=== PATIENT | female | born 1935 | race Caucasian/White ===

== ENCOUNTER → 2016-10-20 | Outpatient (CLI) | payer OTHER, BC | LOC: MMPC 11:11 | PROVIDERS: ATTEND Internal Medicine | DX: M54.16 Radiculopathy, lumbar region (principal); K21.9 Gastro-esophageal reflux disease without esophagitis; M25.511 Pain in right shoulder | CPT/HCPCS: 99213; G0463 ==

== ENCOUNTER → 2016-11-17 | Outpatient (CLI) | payer OTHER, BC | LOC: MMPC 11:11 | PROVIDERS: ATTEND Internal Medicine | DX: M79.7 Fibromyalgia (principal); M19.019 Primary osteoarthritis, unspecified shoulder; N30.10 Interstitial cystitis (chronic) without hematuria; G47.00 Insomnia, unspecified; K59.03 Drug induced constipation; K21.9 Gastro-esophageal reflux disease without esophagitis; G89.4 Chronic pain syndrome; G62.9 Polyneuropathy, unspecified; M47.816 Spondylosis without myelopathy or radiculopathy, lumbar region | CPT/HCPCS: 99213; G0463 ==

== ENCOUNTER → 2016-12-08 | Outpatient (CLI) | payer OTHER, BC ==
[2016-12-08 17:05] LABS: BILIRUBIN,URINE NEGATIVE (NEG); CLARITY,URINE Slightly Cloudy (CLEAR); COLOR,URINE YELLOW; GLUCOSE, URINE (UA) NEGATIVE (NEG); NITRATE,URINE POSITIVE (NEG); OCCULT BLOOD,URINE MODERATE (NEG); PH,URINE 5.5 (5.0-8.5); PROTEIN,URINE 30 mg/dl (NEG); UROBILINOGEN,URINE 0.2 EU/dL (0.2)
[2016-12-08 17:10] LABS: URINE SAMPLE TYPE CLEAN CATCH URINE
[2016-12-08 17:13] LABS: BACTERIA,URINE MODERATE; SQUAMOUS EPITHELIAL CELL,UR RARE; WBC,URINE >100
== END ==
LOC: MOB LAB 15:53
PROVIDERS: ATTEND Nurse Practitioner Family
DX: R30.0 Dysuria (principal); R82.99 Other abnormal findings in urine
CPT/HCPCS: 81001; 87077; 87088; 87186

== ENCOUNTER → 2016-12-28 | Outpatient (CLI) | payer OTHER, BC | LOC: MMPC 11:11 | PROVIDERS: ATTEND Internal Medicine | DX: M47.816 Spondylosis without myelopathy or radiculopathy, lumbar region (principal); N30.10 Interstitial cystitis (chronic) without hematuria; K59.03 Drug induced constipation; K21.9 Gastro-esophageal reflux disease without esophagitis; G89.4 Chronic pain syndrome | CPT/HCPCS: 99213; G0463 ==

== ENCOUNTER 2017-01-01 10:08 | Inpatient (IN) | payer OTHER, BC ==
[2017-01-01] MEDS ORDERED: Acetaminophen 1000mg Inj 1,000 MG in Premix 1 BAG IV ONE (10:49)
[2017-01-01] MEDS ORDERED: Sodium Chloride 0.9% 1,000 ML PRIMARY IV ONE (10:49)
--- NOTE | 2017-01-01 10:54 | PDOC ---
Gen Adult / Medical Screen HPI - General Chief Complaint: General Medical Stated Complaint: WEAKNESS, CHILLS, FEVER STARTING AT 0630 Date Seen by Provider: 01/01/17 Time Seen by Provider: 10:51 Source: POSITIVE: Patient, Other (Daughter) Exam Limitations: POSITIVE: No limitations Nurse's Notes Reviewed & Considered: Yes - Indicators Chest or Abdominal Pain: Yes Inability to Walk: Yes Pt Reports Active High Risk Cond. (TB/Hepatitis/HIV/Chemo): No Abnormal Mental Status: No - History of Present Illness Initial Comments: This is a very pleasant 81-year-old female who comes in today with chief complaint of rigors. Patient awoke this morning at 06 30 having chills. She felt she needed to go to the toilet but was unable to make it in time and subsequently passed stool on the floor and on herself. Her daughter found her this morning having complaints of abdominal pain, rigors, and complaints of back pain. Patient recently treated for chronic UTI with Keflex, antibiotic course in did last week. She continues to have dysuria. She presently denies any headache, no sore throat, she is very thirsty, she denies nausea vomiting or diarrhea, she denies any fever but does have chills and rigor but no sweats. Presently denies any abdominal pain. She does have dysuria but no hematuria. No rashes. She denies any fainting Ro but does have global weakness. Body Location Affected: REPORTS: Abdomen Timing: REPORTS: Abrupt Duration: 4-6 hours Similar Symptoms Previously: No Recent Care Received: REPORTS: Treated by MD (Antibiotics for chronic UTI.) Any Prior Injuries Related to Current Complaint?: No - Patient Home Medications Home Medications: Home Medications Vit C/Vit E Acetate/Lutein/Min [Ocuvite Lutein Capsule] 1 each PO DAILY Calcium Carbonate/Vitamin D3 [Calcium 600 + Vit D 400 Caplet] 1 cap PO BID #60 tab 09/28/12 Aspirin/Acetaminophen/Caffeine [Excedrin Migraine Tablet] 1 tab PO PRN tab Travoprost (Benzalkonium) [Travatan 0.004% Eye Drop] 1 drop EACH EYE HS drop Phenazopyridine HCl [Pyridium] 100 mg PO QD tab 04/26/14 SUMAtriptan Inj [Imitrex Inj] 6 mg SUBCUT ONCE #1 ml 08/26/15 Docusate Sodium [Stool Softener] 100 mg PO DAILY tab 11/05/15 Inulin/Chromium Picolinate [Fiber Gummies] 1 each PO DAILY tab 11/05/15 Multivitamin [Daily Olinda] 1 tab PO DAILY tab 11/05/15 Alendronate Sodium 1 tab-cap PO WEEKLY #12 tab 02/10/16 Triamcinolone Acetonide 30 gm TOPICAL QD #1 tube 05/25/16 Omeprazole 1 tab-cap PO DAILY #90 tab-cap 06/23/16 Estrogens, Conj Vaginal Cream [Premarin Vaginal Cream] 0.5 gm VG 3XW #1 tube Lidocaine 1 patch TRANSDERM daily/prn #30 patch 08/05/16 Gabapentin 2 tab-cap PO QHS #180 tab-cap 09/23/16 Oxycodone HCl 1.5 tab PO BID #126 tab 11/17/16 Triazolam [Halcion] 1 tab-cap ORAL QHS PRN #30 tab-cap 12/17/16 Oxycodone HCl/Aspirin [Oxycodone-Aspirin 4.8355-325] 2 tab PO Q6H PRN #240 tab 12/28/16 - Patient Allergies Allergies/Adverse Reactions: Allergies Allergy/AdvReac Type Severity Reaction Status Date / Time codeine AdvReac NAUSEA Verified 01/01/17 10:35 Past Medical History - heen HEENT History: Glaucoma, Macular Degeneration, Cataracts, Dentures/Partials Additional HEENT History: TMJ Cardiovascular History: Hyperlipidemia Additional Cardiovasular History: HEART MURMUR Respiratory History: Other (please comment) Additional Respiratory History: previous tobacco use, quit in 1967. SOB WITH ACTIVITY. SHALLOW BREATHER, HAD HOME O2 BUT STATES DIDN'T WORK FOR HER Gastrointestinal History: GERD Additional Gastrointestinal History: constipation / SAUCEDA'S ESOPHAGUS Genitourinary History: Other (please comment) Additional Genitourinary History: CHRONIC URINARY PAIN Endocrine History: Denies History Musculoskeletal History: Arthritis, Osteoporosis, Fibromyalgia, Back Pain Prosthesis or Implant: Yes (LEFT TKA, DENTAL) Neurological History: Migraines Blood Disorders: Denies History Psychiatric History: Denies History History of Sexually Transmitted Diseases: No Cancer History: Denies History History of MDRO: No History of Other Communicable Diseases: No Alcohol Use: None Substance Use Type: None Previous Surgical History: Yes Type / Date of Surgery: COLONOSCOPY/ TONSILLECTOMY/LEFT TKA /EGD/ TRIAL STIMULATOR PLACEMENT Anesthesia Reactions: No Malignant Hyperthermia: No Significant Family History: No pertinent family hx ROS - Limitations ROS Limitations: No Limitations Constitution: REPORTS: Chills, Other (Rigors) Cardiovascular: REPORTS: Denies Cardiac Symptoms Respiratory: REPORTS: Denies Resp Symptoms Neurological: REPORTS: Weakness Gastrointestinal: REPORTS: Abdominal Pain Endocrine: REPORTS: Fatigue Musculoskeletal: REPORTS: Back Pain Genitourinary: REPORTS: Dysuria Eyes: REPORTS: Denies Symptoms ENT: REPORTS: Other (dry mucus membrains) Skin: REPORTS: Denies Skin Symptoms Lympathic: REPORTS: Denies Lympathic Symptoms Immunologic: POSITIVE: Denies Symptoms Psychiatric: POSITIVE: Denies Psych Symptoms Gen Adult/Medical Screen Exam - General Appearance General Appearance: POSITIVE: Alert, Cooperative, No Acute Distress, No Evidence of Trauma - HEENT HEENT: POSITIVE: Head Inspection Nml, Eyes Inspection Nml, Ears Inspection Nml, Nose Inspection Nml, PERRL, EOMI, Dry Mucous Membranes - Pupils Pupil Size: 5 mm: Bilateral - Neck Neck: POSITIVE: Normal Inspection - Respiratory Respiratory: POSITIVE: No Respiratory Distress, Breath Sounds Normal, Chest Non- Tender - Cardiovascular Cardiovascular: POSITIVE: Regular Rate & Rhythm, No Murmur, No Gallop, PMI Normal - Abdomen Abdomen: Soft: (All Quadrants), Normal Bowel Sounds: (All Quadrants), Denies Tenderness: (All Quadrants), No Splenomegaly: (All Quadrants), No Hepatomegaly: (All Quadrants), No Guarding: (All Quadrants), No Rebound: (All Quadrants), No Palpable Pulse: (All Quadrants), No Palpabale Mass: (All Quadrants), No Distention: (All Quadrants), No Rigidity: (All Quadrants) - Back Back: POSITIVE: Lumbosacral Tenderness - Neurological / Psychological Mental Status: POSITIVE: Mood Normal, Affect Normal Orientation: POSITIVE: Oriented x 3 - Skin Skin: POSITIVE: Normal Color, Warm, Dry, No Rash - Extremities Extremity: Non-Tender: (All Extremities), Normal ROM: (All Extremities), Normal Inspection: (All Extremities) Gen Adlt/Medical Scrn Progress - Results Reviewed by me Xrays/CTs/US Reviewed by me: Yes Discussed with Radiologist: Yes Lab Results Reviewed: Yes Lab Results:: Laboratory Results 01/01/17 01/01/17 01/01/17 Range/Units 11:09 11:17 11:27 WBC 11.69 H (4.8-10.8) 10^3/uL RBC 4.04 L (4.20-5.40) 10^6/uL Hgb 7.9 L (12.0-16.0) g/dL Hct 27.1 L (37.0-47.0) % MCV 67.1 L (81-99) FL MCH 19.6 L (27-31) PG MCHC 29.2 L (33-37) g/dL RDW Std Deviation 43.6 (39-50) fL RDW Coeff of Abdulaziz 18.3 H (11.5-14.5) % Plt Count 343 (140-350) 10*3/uL MPV 9.9 (7.4-12.2) FL Immature Gran % (Auto) 0.3 (0-5) % Neut % (Auto) 89.8 H (50-80) % Lymph % (Auto) 4.5 L (10-50) % Kidder % (Auto) 5.0 (5-15) % Eos % (Auto) 0.1 (0-8) % Baso % (Auto) 0.3 (0-1) % Immature Gran # (Auto) 0.03 10*3/UL Neut # (Auto) 10.51 10*3/UL Lymph # (Auto) 0.53 10*3/uL Kidder # (Auto) 0.58 (0.3-0.8) 10*3/UL Eos # (Auto) 0.01 10*3/UL Baso # (Auto) 0.03 10*3/UL WBC Morphology Comment Normal morphology (NORM) Plt Morphology Comment Normal morphology (NORM) RBC Morph Comment See comments (NORM) VBG pH 7.41 (7.32-7.42) VBG pCO2 36 L (45-55) mmHg VBG HCO3 23 (22-26) mmol/L VBG Base Excess -2 (-2-2) MMOL/L Sodium 135 (135-145) meq/L Potassium 3.6 L (3.8-5.2) meq/L Chloride 104 (98-112) meq/L Carbon Dioxide 24 (23-33) meq/L Anion Gap 7 (5-20) BUN 20 (7-22) mg/dL Creatinine 0.9 (0.50-1.20) mg/dL Estimated GFR (>60 ml/min/1.73m(2)) BUN/Creatinine Ratio 22.22 H (6-20) Glucose 91 (78-110) mg/dL Calculated Osmolality 282.0 (267-292) mOsm/kg Lactic Acid 0.8 (0.70-2.10) MMOL/L Calcium 7.9 L (8.7-10.7) mg/dL Magnesium 2.3 (1.6-2.4) mg/dL Total Bilirubin 0.4 (0.3-1.2) mg/dL AST 18 (8-39) IU/L ALT 21 (9-52) IU/L Alkaline Phosphatase 45 (38-126) IU/L Total Protein 5.5 L (6.1-8.0) g/dL Albumin 3.1 L (3.5-4.8) g/dL Globulin 2.4 L (2.50-4.10) g/dL Albumin/Globulin Ratio 1.20 L (1.3-2.0) mg/g Ur Collection Type Cath specimen Urine Color Yellow Urine Clarity Clear (CLEAR) Urine pH 5.5 (5.0-8.5) Ur Specific [place] 1.010 (1.005-1.030) Urine Protein Negative (NEG) mg/dl Urine Glucose (UA) Negative (NEG) mg/dL Urine Ketones Negative (NEG) Urine Occult Blood Trace-intact H (NEG) Urine Nitrate Positive H (NEG) Urine Bilirubin Negative (NEG) Urine Urobilinogen 0.2 (0.2) EU/dL Ur Leukocyte Esterase Negative (NEG) Urine RBC 0-3 (NONE) /hpf Urine WBC 0-3 (NONE) Ur Squamous Epith Cells None (NONE) Ur Renal Epithelial Cell None (NONE) Urine Crystals None Urine Bacteria Moderate (NONE) Urine Casts None (NONE) Urine Mucus None (NONE) Urine Trichomonas None (NONE) Urine Yeast None (NONE) Ur Culture Indicated? Culture set - Patient's Progress Pain Medication Addressed: POSITIVE: Yes Re-Examine Time: 11:50 Status: POSITIVE: Improved MDM / ED Course: Patient was evaluated, an IV started, blood drawn and sent to the lab for studies, blood cultures and blood gases were obtained, radiographic examination was obtained. ER course: Patient received a liter bolus of normal saline, IV acetaminophen, and improve somewhat. Findings: CBC shows elevated white count of 11.6, hemoglobin and hematocrit are both low with hemoglobin of 7.9. This hemoglobin level is down from 14 compared to a lab draw one year ago after review of the chart. Comprehensive metabolic panel shows a potassium of 3.6 albumin and protein are low. Urinalysis is positive for nitrites and moderate bacteria. An stain and cultures are pending. Chest x-ray shows a right lower lobe pneumonia per my interpretation. Assessment: #1 right lower lobe pneumonia with hypotension. #2 early sepsis. # 3 urinary tract infection. 4 Microcytic anemia. #5 Macular degeneration. - Consult Consult (If Yes, Name of Consulting MD & Time Called): Yes (Dr. Shearer, [id number]) Consulting MD will see pt:: POSITIVE: [facility] [place] Admit Counseled: POSITIVE: Patient, Family, RE: Lab Results, RE: Radiology Results, RE : DX Patient Care Time - Estimated PCT Patient Care Time (In Minutes): 45 Vital Signs - VS Reviewed Vital Signs Reviewed: Yes Discharge Clinical Impression: Right lower lobe pneumonia, Hypotension, Macular degeneration, Macrocytic anemia UTI (urinary tract infection) Qualifiers: Urinary tract infection type: acute cystitis Hematuria presence: with hematuria Qualifier Code: (N30.01) Acute cystitis with hematuria Discharge Disposition: Admit to Inpatient Condition: Fair Date Decision to Admit to Inpatient: 01/01/17 Time Decision to Admit to Inpatient: 11:51
[2017-01-01 11:16] LABS: VENOUS PH 7.41 (7.32-7.42)
[2017-01-01 11:19] LABS: BASOPHILS # (AUTO) 0.03 10*3/UL; BASOPHILS % (AUTO) 0.3 % (0-1); EOSINOPHILS # (AUTO) 0.01 10*3/UL; EOSINOPHILS % (AUTO) 0.1 % (0-8); HEMATOCRIT 27.1 % (37.0-47.0); HEMOGLOBIN 7.9 g/dL (12.0-16.0); LYMPHOCYTES # (AUTO) 0.53 10*3/uL; MEAN CORPUSCULAR HEMOGLOBIN 19.6 PG (27-31); MEAN CORPUSCULAR HGB CONC 29.2 g/dL (33-37); MEAN CORPUSCULAR VOLUME 67.1 FL (81-99); MEAN PLATELET VOLUME 9.9 FL (7.4-12.2); MONOCYTES # (AUTO) 0.58 10*3/UL (0.3-0.8); NEUTROPHILS # (AUTO) 10.51 10*3/UL; NEUTROPHILS % (AUTO) 89.8 % (50-80); RED BLOOD COUNT 4.04 10^6/uL (4.20-5.40)
[2017-01-01 11:29] LABS: BUN/CREATININE RATIO 22.22 (6-20); CALCIUM 7.9 mg/dL (8.7-10.7); MAGNESIUM 2.3 mg/dL (1.6-2.4); SERUM ALBUMIN 3.1 g/dL (3.5-4.8)
[2017-01-01 11:30] LABS: BILIRUBIN,URINE NEGATIVE (NEG); CLARITY,URINE CLEAR (CLEAR); COLOR,URINE YELLOW; GLUCOSE, URINE (UA) NEGATIVE (NEG); NITRATE,URINE POSITIVE (NEG); OCCULT BLOOD,URINE Trace-intact (NEG); PH,URINE 5.5 (5.0-8.5); PROTEIN,URINE NEGATIVE (NEG); UROBILINOGEN,URINE 0.2 EU/dL (0.2)
[2017-01-01 11:34] LABS: WBC MORPHOLOGY COMMENT NORMAL MORPHOLOGY (NORM)
[2017-01-01 11:35] LABS: PLATELET MORPHOLOGY COMMENT NORMAL MORPHOLOGY (NORM); RBC MORPHOLOGY COMMENT SEE COMMENTS (NORM)
[2017-01-01 11:39] LABS: URINE SAMPLE TYPE CATH SPECIMEN
[2017-01-01 11:40] LABS: BACTERIA,URINE MODERATE; RBC,URINE 0-3 /hpf; WBC,URINE 0-3
[2017-01-01] MEDS ORDERED: cefTRIAXone Inj 2 GM in Sodium Chloride 0.9% 100 ML IV ONE (11:49)
[2017-01-01] MEDS ORDERED: Sodium Chloride 0.9% 500 ML PRIMARY IV SCH (12:24)
[2017-01-01] MEDS ORDERED: ESTROGENS,CONJUGATED 30 GM CREAM VAGINAL SCH (12:24)
[2017-01-01] MEDS ORDERED: LIDOCAINE W/ SODIUM BICARB 0.5 ML SYR SUBD PRN (12:24)
[2017-01-01] MEDS ORDERED: LIDOCAINE 700 MG PATCH TOPICAL SCH (12:24)
[2017-01-01] MEDS ORDERED: SUMAtriptan Succinate 6 MG/0.5 ML SUBCUT PRN (12:24)
[2017-01-01] MEDS ORDERED: predniSONE Tab 20 MG TAB PO ONE (12:40)
[2017-01-01] MEDS ORDERED: ACETAMINOPHEN 325 MG TABLET PO ONE (12:40)
[2017-01-01] MEDS: Phenazopyridine Tab 100 MG TAB PO SCH (13:22)
[2017-01-01] MEDS: Sodium Chloride 0.9% 1,000 ML PRIMARY IV SCH (13:24)
[2017-01-01] MEDS: Sodium Chloride 0.9% 500 ML PRIMARY IV ONE ×2 (13:40→17:01)
[2017-01-01] MEDS ORDERED: Sodium Chloride 0.9% 1,000 ML PRIMARY IV SCH (13:45)
[2017-01-01] MEDS ORDERED: Potassium Chloride 20 mEq 20 MEQ in Premix 1 BAG IV ONE (13:59)
[2017-01-01] MEDS ORDERED: HYDROmorphone 2 MG/1 ML IVP PRN (14:13)
[2017-01-01] MEDS: ONDANSETRON 4 MG/2 ML VIAL IVP PRN (14:24)
--- NOTE | 2017-01-01 15:06 | DI ---
PA /LATERAL CHEST X-RAY, 01/01/2017 10:49 AM : Clinical History: Rigors. Previous Exam: 09/19/2009. There is no acute soft tissue or bony abnormality. Heart size is normal. There is a right lower lobe pneumonia. Mediastinal structures are normal. There are no pulmonary nodules. Reading: Right lower lobe pneumonia.
--- NOTE | 2017-01-01 15:19 | PDOC ---
History and Physical - History of Present Illness Date and Time of Service: 01/01/2017, 1513 Chief Complaint: shaking and chills. History of Present Illness: This is a very pleasant 81 YO female who has chronic back pain, ledezma's esophagitis, chronic interstitial cystitis, arthritis, who presents with complaints of waking up with shaking and chills. She describes rigors and states that she had a fever when the ambulance got her. She went to the bathroom after she woke up and felt the rigors and also felt very weak. She was weak enough that she could not get up and lost her bowels. Her daughter says it was a dark stool, borderline melanotic. The patient was found with workup in the ER to have a right sided pneumonia, probably recurrent UTI, and anemia with a hemoglobin below 8. It was normal at over 14 in 09/2015 on my review of the record. The patient stated that her back pain has been worse, but did not notice any exacerbating factors except that her medicines were switched to higher dose oxycodone with aspirin. She has been on percodan for pain for a long time now. She also noted that she had no cough or chest pain, but does state she gets acid reflux and thinks she swallows these contents into her lungs at times. The patient was borderline hypotensive, but not tachycardic. She has not had this constellation of symptoms or findings before , though she has had multiple GI scopes and work up in the past per my review of the history. I spoke with surgery who felt the patient needed stabilization prior to any outpatient scope. Past Medical History Medical History: 1. GERD. 2. Osteoporosis. 3. Lumbar spondylosis. 4. Osteoarthritis. 5. Hx of hyperlipidemia. 6. Ledezma's esophagitis. 7. macular degeneration. 8. chronic interstitial cystitis with recurrent UTI's Surgical History: 1. colonoscopies and EGD's. most recent colonoscopy had a tubular adenoma in 2009. 2. left knee surgery. 3. spinal stimulator with subsequent removal. 4. hand surgery. Family History: Reviewed an Not Pertinent Pertinent Family History: significant for heart disease in her father Past Social History: quit smoking in the 1959's, no alcohol, has children that are healthy. ambulates with walker and lives independently in the [facility]. Tobacco Use: Former Smoker Substance Use Type: None Alcohol Use: None Medication / Allergies Home Medications: Home Medications Medication Instructions Recorded Confirmed Type Vit C/Vit E Acetate/Lutein/Min 1 each PO DAILY 12/19/10 01/01/17 History [Ocuvite Lutein Capsule] Calcium Carbonate/Vitamin D3 1 cap PO BID #60 tab 09/28/12 01/01/17 Clinic [Calcium 600 + Vit D 400 Caplet] Aspirin/Acetaminophen/Caffeine 1 tab PO PRN tab 01/16/13 01/01/17 History [Excedrin Migraine Tablet] Travoprost (Benzalkonium) 1 drop EACH EYE HS drop 01/16/13 01/01/17 History [Travatan 0.004% Eye Drop] Phenazopyridine HCl [Pyridium] 100 mg PO QD tab 04/26/14 01/01/17 History SUMAtriptan Inj [Imitrex Inj] 6 mg SUBCUT ONCE #1 ml 08/26/15 01/01/17 Clinic Docusate Sodium [Stool Softener] 100 mg PO DAILY tab 11/05/15 01/01/17 History Inulin/Chromium Picolinate [Fiber 1 each PO DAILY tab 11/05/15 01/01/17 History Gummies] Multivitamin [Daily Olinda] 1 tab PO DAILY tab 11/05/15 01/01/17 History Alendronate Sodium 1 tab-cap PO WEEKLY #12 tab 02/10/16 01/01/17 Clinic Triamcinolone Acetonide 30 gm TOPICAL QD #1 tube 05/25/16 01/01/17 Clinic Omeprazole 1 tab-cap PO DAILY #90 tab-cap 06/23/16 01/01/17 Clinic Estrogens, Conj Vaginal Cream 0.5 gm VG 3XW #1 tube 07/17/16 01/01/17 Clinic [Premarin Vaginal Cream] Lidocaine 1 patch TRANSDERM daily/prn #30 08/05/16 01/01/17 Clinic patch Gabapentin 2 tab-cap PO QHS #180 tab-cap 09/23/16 01/01/17 Clinic Oxycodone HCl 1.5 tab PO BID #126 tab 11/17/16 01/01/17 Clinic Triazolam [Halcion] 1 tab-cap ORAL QHS PRN #30 tab-cap 12/17/16 01/01/17 Clinic Oxycodone HCl/Aspirin 2 tab PO Q6H PRN #240 tab 12/28/16 01/01/17 Clinic [Oxycodone-Aspirin 4.8355-325] Allergies/Adverse Reactions: Allergies Allergy/AdvReac Type Severity Reaction Status Date / Time codeine AdvReac NAUSEA Verified 01/01/17 10:35 Review of Systems - Review of Systems All Systems: Reviewed & No Additional Complaints Except as Stated (I did a 12 point review of systems and it was negative exept as per HPI and that noted below:) - Constitutional Constitutional: REPORTS: Fever/Chills, Malaise, Weakness - Respiratory Respiratory: DENIES: Negative System Review, Cough, Sputum, Dyspnea At Rest, Dyspnea with Exertion, Pleuritic Pain, Hemoptysis, Wheezing, Other, See HPI - Cardiovascular Cardiovascular: DENIES: Negative System Review, Chest Pain, Edema, Syncope, Palpitations, Orthopnea, Paroxysmal Nocturnal Dyspnea, Other, See HPI - Gastrointestinal Gastrointestinal / Abdominal: REPORTS: Constipation (chronic and realted to opiates.), Other (the patient states she cannot see any blood in the stool and attributes that to her poor eye sight) - Genitourinary Genitourinary: REPORTS: Other (chronic interstitial cystitis) - Musculoskeletal Musculoskeletal: REPORTS: Back Pain, Joint Pain - Knees - Neurological Neurologic: DENIES: Negative System Review, Headache, Numbness/Paresthesia, Tremors, Weakness, Seizures, Head Trauma, LOC, Dizziness, Confusion, Memory Loss , Difficulty Walking, Incoordination, Other, See HPI Exam - Vitals Vital Signs: Vital Signs Temperature 98.7 F Temperature Source Oral Pulse Rate [Pulse Oximeter] 81 Pulse Rate 85 Respiratory Rate 8 Blood Pressure [Left Arm] 114/34 Pulse Ox 95 Oxygen Delivery Method Nasal Cannula Weight 146 lb - General General Appearance: POSITIVE: No Acute Distress, Cooperative Additional General Exam Details: appears pale. - Head Head Exam: POSITIVE: Normal Inspection, Normocephalic, Atraumatic - Eye Eye Exam: POSITIVE: No Scleral Icterus - ENT ENT Exam: POSITIVE: Mucous Membranes Dry - Neck Neck Exam: POSITIVE: Normal Inspection, No Tenderness, No Thyromegaly - Respiratory Respiratory Exam: POSITIVE: Clear to Auscultation - Bilaterally, Breathing Non Labored, Normal to Percussion and Palpation - Cardiovascular Cardiovascular Exam: POSITIVE: RRR, No Murmur, No Clicks, No Gallops, No Rubs, No JVD - GI/Abdominal GI/Abdominal Exam: POSITIVE: Normal Bowel Sounds, Non Tender, Non Distended, Soft - Rectal Rectal Exam: POSITIVE: Normal Inspection, Hemorrhoids (small external, not bleeding) Additional Rectal Exam Details: no gross blood on the glove. - External Exam: POSITIVE: Deferred Exam: POSITIVE: Deferred - Extremities Extremities Exam: POSITIVE: No Clubbing Present, No Edema Present, No Cyanosis Present Additional Extremities Exam Details: question if right leg is larger than the left?? - Back Back Exam: POSITIVE: No CVA Tenderness - Neurological Neurological Exam: POSITIVE: Alert, Oriented x 3, No Facial Droop, Speech Intact / Clear, Moves All Extremities Equally - Psychiatric Psychiatric Exam: POSITIVE: Normal Affect, Normal Mood - Integumentary Additional Integumentary Exam Details: appears pale - Central Line Examination Central Line Present on Admission: No Results - Labs CBC and BMP: 01/01/17 11:17 01/01/17 11:17 Labs - Last 24 Hours: Laboratory Results 01/01/17 Range/Units 13:05 Lactic Acid 0.8 (0.70-2.10) MMOL/L Blood Type A POSITIVE Antibody Screen Negative Crossmatch See Detail Laboratory Results 01/01/17 01/01/17 01/01/17 Range/Units 11:09 11:17 11:27 WBC 11.69 H (4.8-10.8) 10^3/uL RBC 4.04 L (4.20-5.40) 10^6/uL Hgb 7.9 L (12.0-16.0) g/dL Hct 27.1 L (37.0-47.0) % MCV 67.1 L (81-99) FL MCH 19.6 L (27-31) PG MCHC 29.2 L (33-37) g/dL RDW Std Deviation 43.6 (39-50) fL RDW Coeff of Abdulaziz 18.3 H (11.5-14.5) % Plt Count 343 (140-350) 10*3/uL MPV 9.9 (7.4-12.2) FL Immature Gran % (Auto) 0.3 (0-5) % Neut % (Auto) 89.8 H (50-80) % Lymph % (Auto) 4.5 L (10-50) % [place] % (Auto) 5.0 (5-15) % Eos % (Auto) 0.1 (0-8) % Baso % (Auto) 0.3 (0-1) % Immature Gran # (Auto) 0.03 10*3/UL Neut # (Auto) 10.51 10*3/UL Lymph # (Auto) 0.53 10*3/uL [place] # (Auto) 0.58 (0.3-0.8) 10*3/UL Eos # (Auto) 0.01 10*3/UL Baso # (Auto) 0.03 10*3/UL WBC Morphology Comment Normal morphology (NORM) Plt Morphology Comment Normal morphology (NORM) RBC Morph Comment See comments (NORM) VBG pH 7.41 (7.32-7.42) VBG pCO2 36 L (45-55) mmHg VBG HCO3 23 (22-26) mmol/L VBG Base Excess -2 (-2-2) MMOL/L Sodium 135 (135-145) meq/L Potassium 3.6 L (3.8-5.2) meq/L Chloride 104 (98-112) meq/L Carbon Dioxide 24 (23-33) meq/L Anion Gap 7 (5-20) BUN 20 (7-22) mg/dL Creatinine 0.9 (0.50-1.20) mg/dL Estimated GFR (>60 ml/min/1.73m(2)) BUN/Creatinine Ratio 22.22 H (6-20) Glucose 91 (78-110) mg/dL Calculated Osmolality 282.0 (267-292) mOsm/kg Lactic Acid 0.8 (0.70-2.10) MMOL/L Calcium 7.9 L (8.7-10.7) mg/dL Magnesium 2.3 (1.6-2.4) mg/dL Total Bilirubin 0.4 (0.3-1.2) mg/dL AST 18 (8-39) IU/L ALT 21 (9-52) IU/L Alkaline Phosphatase 45 (38-126) IU/L Total Protein 5.5 L (6.1-8.0) g/dL Albumin 3.1 L (3.5-4.8) g/dL Globulin 2.4 L (2.50-4.10) g/dL Albumin/Globulin Ratio 1.20 L (1.3-2.0) mg/g Ur Collection Type Cath specimen Urine Color Yellow Urine Clarity Clear (CLEAR) Urine pH 5.5 (5.0-8.5) Ur Specific Quentin 1.010 (1.005-1.030) Urine Protein Negative (NEG) mg/dl Urine Glucose (UA) Negative (NEG) mg/dL Urine Ketones Negative (NEG) Urine Occult Blood Trace-intact H (NEG) Urine Nitrate Positive H (NEG) Urine Bilirubin Negative (NEG) Urine Urobilinogen 0.2 (0.2) EU/dL Ur Leukocyte Esterase Negative (NEG) Urine RBC 0-3 (NONE) /hpf Urine WBC 0-3 (NONE) Ur Squamous Epith Cells None (NONE) Ur Renal Epithelial Cell None (NONE) Urine Crystals None Urine Bacteria Moderate (NONE) Urine Casts None (NONE) Urine Mucus None (NONE) Urine Trichomonas None (NONE) Urine Yeast None (NONE) Ur Culture Indicated? Culture set Blood Type Antibody Screen Crossmatch 01/01/17 Range/Units 13:05 WBC (4.8-10.8) 10^3/uL RBC (4.20-5.40) 10^6/uL Hgb (12.0-16.0) g/dL Hct (37.0-47.0) % MCV (81-99) FL MCH (27-31) PG MCHC (33-37) g/dL RDW Std Deviation (39-50) fL RDW Coeff of Abdulaziz (11.5-14.5) % Plt Count (140-350) 10*3/uL MPV (7.4-12.2) FL Immature Gran % (Auto) (0-5) % Neut % (Auto) (50-80) % Lymph % (Auto) (10-50) % [place] % (Auto) (5-15) % Eos % (Auto) (0-8) % Baso % (Auto) (0-1) % Immature Gran # (Auto) 10*3/UL Neut # (Auto) 10*3/UL Lymph # (Auto) 10*3/uL [place] # (Auto) (0.3-0.8) 10*3/UL Eos # (Auto) 10*3/UL Baso # (Auto) 10*3/UL WBC Morphology Comment (NORM) Plt Morphology Comment (NORM) RBC Morph Comment (NORM) VBG pH (7.32-7.42) VBG pCO2 (45-55) mmHg VBG HCO3 (22-26) mmol/L VBG Base Excess (-2-2) MMOL/L Sodium (135-145) meq/L Potassium (3.8-5.2) meq/L Chloride (98-112) meq/L Carbon Dioxide (23-33) meq/L Anion Gap (5-20) BUN (7-22) mg/dL Creatinine (0.50-1.20) mg/dL Estimated GFR (>60 ml/min/1.73m(2)) BUN/Creatinine Ratio (6-20) Glucose (78-110) mg/dL Calculated Osmolality (267-292) mOsm/kg Lactic Acid 0.8 (0.70-2.10) MMOL/L Calcium (8.7-10.7) mg/dL Magnesium (1.6-2.4) mg/dL Total Bilirubin (0.3-1.2) mg/dL AST (8-39) IU/L ALT (9-52) IU/L Alkaline Phosphatase (38-126) IU/L Total Protein (6.1-8.0) g/dL Albumin (3.5-4.8) g/dL Globulin (2.50-4.10) g/dL Albumin/Globulin Ratio (1.3-2.0) mg/g Ur Collection Type Urine Color Urine Clarity (CLEAR) Urine pH (5.0-8.5) Ur Specific Quentin (1.005-1.030) Urine Protein (NEG) mg/dl Urine Glucose (UA) (NEG) mg/dL Urine Ketones (NEG) Urine Occult Blood (NEG) Urine Nitrate (NEG) Urine Bilirubin (NEG) Urine Urobilinogen (0.2) EU/dL Ur Leukocyte Esterase (NEG) Urine RBC (NONE) /hpf Urine WBC (NONE) Ur Squamous Epith Cells (NONE) Ur Renal Epithelial Cell (NONE) Urine Crystals Urine Bacteria (NONE) Urine Casts (NONE) Urine Mucus (NONE) Urine Trichomonas (NONE) Urine Yeast (NONE) Ur Culture Indicated? Blood Type A POSITIVE Antibody Screen Negative Crossmatch See Detail - Imaging Status: Image Reviewed by Me (cxr, on my view, positive for right sided pneumonia.) Assessment and Plan - Patient Problems (1) Sepsis Current Visit: Yes Status: Acute Qualifiers: Sepsis type: sepsis due to unspecified organism Qualified Description: Sepsis, due to unspecified organism Qualifier Code(s): (A41.9) Sepsis, unspecified organism (2) Pneumonia Current Visit: Yes Status: Acute Qualifiers: Pneumonia type: due to unspecified organism Laterality: right Lung location: lower lobe of lung Qualified Description: Pneumonia of right lower lobe due to infectious organism Qualifier Code(s): (J18.1) Lobar pneumonia, unspecified organism (3) GI bleed Current Visit: Yes Status: Acute Qualifiers: GI bleed type/associated pathology: unspecified gastrointestinal hemorrhage type Qualified Description: Gastrointestinal hemorrhage, unspecified gastrointestinal hemorrhage type Qualifier Code(s): (K92.2) Gastrointestinal hemorrhage, unspecified (4) Chronic pain syndrome Current Visit: Yes Status: Acute (5) Anemia due to acute blood loss Current Visit: Yes Status: Acute (6) UTI (urinary tract infection) Current Visit: Yes Status: Acute Comment: microscopic hematuria Qualifiers: Urinary tract infection type: acute cystitis Hematuria presence: with hematuria Qualified Description: Acute cystitis with hematuria Qualifier Code(s): (N30.01) Acute cystitis with hematuria - Assessment / Plan Additional Assessment/Plan Details: admit the patient Protonix gtt, blood transfusion, recheck CBC tonight and in AM I spoke with surgery who agreed with those interventions and felt it would be best to scope as an outpatient unless the patient had hematemesis or BRBPR. stop aspirin rocephin and zithromax for pneumonia, both IV, as patient is ICU patient currently IV fluids to maintain blood pressures above SBP of 90 await urine and blood culture results pneumovax vaccine. code status confirmed, DO NOT RESUSITATE discussed with family at bedside and they agreed. total critical care time 50 minutes. no overlap
[2017-01-01] MEDS ORDERED: PNEUMOCOCCAL 23 VACCINE 25 MCG/0.5 ML VIAL SUBCUT ONE (15:39)
[2017-01-01] MEDS: GABAPENTIN 300 MG CAPSULE PO SCH (20:41)
[2017-01-01] MEDS: oxyCODONE IR Tab 5 MG TAB PO PRN (20:41)
[2017-01-01] MEDS: TRAVOPROST EACH EYE SCH (21:47)
[2017-01-01] MEDS: TRIAZOLAM 0.25 MG ORAL PRN (22:27)
[2017-01-01 22:41] LABS: BASOPHILS # (AUTO) 0.02 10*3/UL; BASOPHILS % (AUTO) 0.1 % (0-1); EOSINOPHILS # (AUTO) 0 10*3/UL; EOSINOPHILS % (AUTO) 0 % (0-8); HEMOGLOBIN 10.2 g/dL (12.0-16.0); LYMPHOCYTES # (AUTO) 0.59 10*3/uL; MEAN CORPUSCULAR HGB CONC 31.9 g/dL (33-37); MEAN CORPUSCULAR VOLUME 72.2 FL (81-99); MEAN PLATELET VOLUME 9.5 FL (7.4-12.2); MONOCYTES # (AUTO) 0.32 10*3/UL (0.3-0.8); MONOCYTES % (AUTO) 1.5 % (5-15); NEUTROPHILS # (AUTO) 20.81 10*3/UL; NEUTROPHILS % (AUTO) 95.3 % (50-80); RED BLOOD COUNT 4.43 10^6/uL (4.20-5.40)
[2017-01-01 22:51] LABS: PLATELET MORPHOLOGY COMMENT NORMAL MORPHOLOGY (NORM); RBC MORPHOLOGY COMMENT NORMAL MORPHOLOGY (NORM); WBC MORPHOLOGY COMMENT NORMAL MORPHOLOGY (NORM)
[2017-01-02] MEDS: Sodium Chloride 0.9% 1,000 ML PRIMARY IV SCH ×3 (03:14→16:35)
[2017-01-02 05:27] LABS: BASOPHILS # (AUTO) 0.01 10*3/UL; BASOPHILS % (AUTO) 0 % (0-1); EOSINOPHILS # (AUTO) 0 10*3/UL; EOSINOPHILS % (AUTO) 0 % (0-8); HEMATOCRIT 30.2 % (37.0-47.0); HEMOGLOBIN 9.6 g/dL (12.0-16.0); LYMPHOCYTES # (AUTO) 0.99 10*3/uL; MEAN CORPUSCULAR HEMOGLOBIN 23.2 PG (27-31); MEAN CORPUSCULAR HGB CONC 31.8 g/dL (33-37); MEAN CORPUSCULAR VOLUME 73.1 FL (81-99); MEAN PLATELET VOLUME 9.6 FL (7.4-12.2); MONOCYTES # (AUTO) 0.59 10*3/UL (0.3-0.8); MONOCYTES % (AUTO) 2.9 % (5-15); NEUTROPHILS # (AUTO) 18.46 10*3/UL; RED BLOOD COUNT 4.13 10^6/uL (4.20-5.40)
[2017-01-02 05:31] LABS: BUN/CREATININE RATIO 16.25 (6-20); CALCIUM 7.3 mg/dL (8.7-10.7); PLATELET MORPHOLOGY COMMENT NORMAL MORPHOLOGY (NORM); RBC MORPHOLOGY COMMENT NORMAL MORPHOLOGY (NORM); WBC MORPHOLOGY COMMENT NORMAL MORPHOLOGY (NORM)
[2017-01-02 05:32] LABS: SERUM ALBUMIN 2.7 g/dL (3.5-4.8)
[2017-01-02] MEDS: Phenazopyridine Tab 100 MG TAB PO SCH (09:21)
[2017-01-02] MEDS: Multivitamin Tab 1 TAB PO SCH (09:21)
[2017-01-02] MEDS: oxyCODONE IR Tab 5 MG TAB PO PRN ×3 (09:22→23:14)
--- NOTE | 2017-01-02 11:27 | PDOC(PROG) ---
Interval History: Patient is feeling much better today she says night and day stronger she is sitting in a chair for the first time since she came in. She does have chronic UTIs and it was on suppression at one time denies chest pain nausea vomiting or shortness of breath. Not drinking much water Objective : Data - Labs CBC and BMP: 01/02/17 04:58 01/02/17 04:58 Labs - Last 24 Hours: Laboratory Results 01/01/17 01/01/17 01/02/17 Range/Units 13:05 22:38 04:58 WBC 21.83 H 20.10 H (4.8-10.8) 10^3/uL RBC 4.43 4.13 L (4.20-5.40) 10^6/uL Hgb 10.2 L 9.6 L (12.0-16.0) g/dL Hct 32.0 L 30.2 L (37.0-47.0) % MCV 72.2 L 73.1 L (81-99) FL MCH 23.0 L 23.2 L (27-31) PG MCHC 31.9 L 31.8 L (33-37) g/dL RDW Std Deviation 54.8 H 55.6 H (39-50) fL RDW Coeff of Abdulaziz 21.5 H 21.4 H (11.5-14.5) % Plt Count 254 225 (140-350) 10*3/uL MPV 9.5 9.6 (7.4-12.2) FL Immature Gran % (Auto) 0.4 0.2 (0-5) % Neut % (Auto) 95.3 H 92.0 H (50-80) % Lymph % (Auto) 2.7 L 4.9 L (10-50) % [place] % (Auto) 1.5 L 2.9 L (5-15) % Eos % (Auto) 0 0 (0-8) % Baso % (Auto) 0.1 0 (0-1) % Immature Gran # (Auto) 0.09 0.05 10*3/UL Neut # (Auto) 20.81 18.46 10*3/UL Lymph # (Auto) 0.59 0.99 10*3/uL [place] # (Auto) 0.32 0.59 (0.3-0.8) 10*3/UL Eos # (Auto) 0 0 10*3/UL Baso # (Auto) 0.02 0.01 10*3/UL WBC Morphology Comment Normal morphology Normal morphology (NORM) Plt Morphology Comment Normal morphology Normal morphology (NORM) RBC Morph Comment Normal morphology Normal morphology (NORM) Sodium 140 (135-145) meq/L Potassium 4.5 (3.8-5.2) meq/L Chloride 110 (98-112) meq/L Carbon Dioxide 23 (23-33) meq/L Anion Gap 7 (5-20) BUN 13 (7-22) mg/dL Creatinine 0.8 (0.50-1.20) mg/dL Estimated GFR (>60 ml/min/1.73m(2)) BUN/Creatinine Ratio 16.25 (6-20) Glucose 108 (78-110) mg/dL Calculated Osmolality 290.0 (267-292) mOsm/kg Lactic Acid 0.8 0.8 (0.70-2.10) MMOL/L Calcium 7.3 L (8.7-10.7) mg/dL Total Bilirubin 0.7 D (0.3-1.2) mg/dL AST 22 (8-39) IU/L ALT 25 (9-52) IU/L Alkaline Phosphatase 33 L (38-126) IU/L Total Protein 5.1 L (6.1-8.0) g/dL Albumin 2.7 L (3.5-4.8) g/dL Globulin 2.4 L (2.50-4.10) g/dL Albumin/Globulin Ratio 1.10 L (1.3-2.0) mg/g Blood Type A POSITIVE Antibody Screen Negative Crossmatch See Detail Objective : Exam - General General Appearance: Cooperative - Head Head Exam: Normal Inspection - Neck Neck Exam: Normal Inspection, Full ROM - Respiratory Respiratory Exam: Clear to Auscultation - Bilaterally, Breathing Non Labored - Cardiovascular Cardiovascular Exam: RRR, No Murmur, No Clicks - GI/Abdominal GI/Abdominal Exam: Non Tender, Non Distended, Soft - Extremities Extremities Exam: No Clubbing Present, No Edema Present, No Cyanosis Present Assessment and Plan - Patient Problems (1) Right lower lobe pneumonia Current Visit: Yes Status: Acute Comment: She did have Klebsiella in the urine at one point resistant to ampicillin for white count still is around 21,000 I will stop ceftriaxone and Zithromax will start cefepime 2 g every 12 follow her blood work care carefully still a little hypotensive. Also will give her 250 normal saline bolus (2) Anemia due to acute blood loss Current Visit: Yes Status: Acute Comment: Stable now EGD as an outpatient as per general surgery no bright red blood per rectum or hematemesis (3) GI bleed Current Visit: Yes Status: Acute Qualifiers: GI bleed type/associated pathology: unspecified gastrointestinal hemorrhage type Qualified Description: Gastrointestinal hemorrhage, unspecified gastrointestinal hemorrhage type Qualifier Code(s): (K92.2) Gastrointestinal hemorrhage, unspecified (4) UTI (urinary tract infection) Current Visit: Yes Status: Acute Comment: This is chronic but still in the setting of sepsis she had Klebsiella in the past resistant to ampicillin cultures are pending Qualifiers: Urinary tract infection type: acute cystitis Hematuria presence: with hematuria Qualified Description: Acute cystitis with hematuria Qualifier Code(s): (N30.01) Acute cystitis with hematuria - Assessment / Plan Additional Assessment/Plan Details: All the above was discussed with nursing patient and her on agreement
[2017-01-02] MEDS ORDERED: Cefepime Inj 2 GM in Sodium Chloride 0.9% 100 ML IV SCH (11:30)
[2017-01-02] MEDS ORDERED: Sodium Chloride 0.9% 250 ML PRIMARY IV ONE (11:35)
[2017-01-02] MEDS ORDERED: cefTRIAXone Inj 2 GM in Sodium Chloride 0.9% 100 ML IV SCH (12:00)
[2017-01-02] MEDS: cefTRIAXone Inj 2 GM in Sodium Chloride 0.9% 100 ML IV SCH (13:00)
[2017-01-02] MEDS: ONDANSETRON 4 MG/2 ML VIAL IVP PRN (21:40)
[2017-01-02] MEDS ORDERED: LORazepam 2 MG/1 ML VIAL ONE (22:28)
[2017-01-02] MEDS ORDERED: LORazepam 2 MG/1 ML VIAL IVP ONE (22:43)
[2017-01-02] MEDS: GABAPENTIN 300 MG CAPSULE PO SCH (23:14)
[2017-01-03] MEDS: TRIAZOLAM 0.25 MG ORAL PRN ×2 (00:57→22:44)
[2017-01-03] MEDS: TRAVOPROST EACH EYE SCH ×2 (03:26→20:57)
[2017-01-03] MEDS ORDERED: Magnesium Sulfate 2gm (Premix) 2 GM in Premix 1 BAG IV ONE (03:59)
[2017-01-03] MEDS ORDERED: Metoprolol TARTRATE Tab 25 MG TAB PO ONE (04:00)
[2017-01-03] MEDS ORDERED: Magnesium Sulfate 2gm (Premix) 50 ML IV ONE (04:08)
[2017-01-03] MEDS: Sodium Chloride 0.9% 1,000 ML PRIMARY IV SCH (04:59)
[2017-01-03 05:17] LABS: BUN/CREATININE RATIO 16.25 (6-20); CALCIUM 7.6 mg/dL (8.7-10.7); SERUM ALBUMIN 2.7 g/dL (3.5-4.8)
[2017-01-03 05:26] LABS: BASOPHILS # (AUTO) 0.04 10*3/UL; BASOPHILS % (AUTO) 0.2 % (0-1); EOSINOPHILS # (AUTO) 0.03 10*3/UL; EOSINOPHILS % (AUTO) 0.2 % (0-8); HEMOGLOBIN 9.2 g/dL (12.0-16.0); LYMPHOCYTES # (AUTO) 1.68 10*3/uL; MEAN CORPUSCULAR HEMOGLOBIN 23.1 PG (27-31); MEAN CORPUSCULAR HGB CONC 30.7 g/dL (33-37); MEAN CORPUSCULAR VOLUME 75.2 FL (81-99); MEAN PLATELET VOLUME 10.4 FL (7.4-12.2); MONOCYTES # (AUTO) 0.69 10*3/UL (0.3-0.8); MONOCYTES % (AUTO) 4.3 % (5-15); NEUTROPHILS # (AUTO) 13.67 10*3/UL; NEUTROPHILS % (AUTO) 84.6 % (50-80); RED BLOOD COUNT 3.99 10^6/uL (4.20-5.40)
[2017-01-03 05:57] LABS: PLATELET MORPHOLOGY COMMENT NORMAL MORPHOLOGY (NORM); RBC MORPHOLOGY COMMENT SEE COMMENTS (NORM); WBC MORPHOLOGY COMMENT NORMAL MORPHOLOGY (NORM)
[2017-01-03] MEDS ORDERED: LORazepam 2 MG/1 ML VIAL IVP PRN (06:13)
[2017-01-03] MEDS: Multivitamin Tab 1 TAB PO SCH (09:39)
[2017-01-03] MEDS: Phenazopyridine Tab 100 MG TAB PO SCH (09:39)
--- NOTE | 2017-01-03 09:53 | PDOC(PROG) ---
Interval History: Patient is doing well this morning had some anxiety last night was given a half a milligram of Ativan which helped also had a very little run of V. tach around 3-4 beats was given magnesium and beta ignacio and she has been well since she has no complaints this morning. Her urine output is improved at 1300 and blood pressures remained stable she denies chest pain nausea vomiting just looks very weak Objective : Data - Labs CBC and BMP: 01/03/17 04:32 01/03/17 04:32 Labs - Last 24 Hours: Laboratory Results 01/03/17 01/03/17 Range/Units 04:32 04:37 WBC 16.16 H (4.8-10.8) 10^3/uL RBC 3.99 L (4.20-5.40) 10^6/uL Hgb 9.2 L (12.0-16.0) g/dL Hct 30.0 L (37.0-47.0) % MCV 75.2 L (81-99) FL MCH 23.1 L (27-31) PG MCHC 30.7 L (33-37) g/dL RDW Std Deviation 58.7 H (39-50) fL RDW Coeff of Abdulaziz 22.4 H (11.5-14.5) % Plt Count 224 (140-350) 10*3/uL MPV 10.4 (7.4-12.2) FL Immature Gran % (Auto) 0.3 (0-5) % Neut % (Auto) 84.6 H (50-80) % Lymph % (Auto) 10.4 (10-50) % [place] % (Auto) 4.3 L (5-15) % Eos % (Auto) 0.2 (0-8) % Baso % (Auto) 0.2 (0-1) % Immature Gran # (Auto) 0.05 10*3/UL Neut # (Auto) 13.67 10*3/UL Lymph # (Auto) 1.68 10*3/uL [place] # (Auto) 0.69 (0.3-0.8) 10*3/UL Eos # (Auto) 0.03 10*3/UL Baso # (Auto) 0.04 10*3/UL WBC Morphology Comment Normal morphology (NORM) Plt Morphology Comment Normal morphology (NORM) RBC Morph Comment See comments (NORM) Sodium 142 (135-145) meq/L Potassium 4.5 (3.8-5.2) meq/L Chloride 114 H (98-112) meq/L Carbon Dioxide 24 (23-33) meq/L Anion Gap 4 L (5-20) BUN 13 (7-22) mg/dL Creatinine 0.8 (0.50-1.20) mg/dL Estimated GFR (>60 ml/min/1.73m(2)) BUN/Creatinine Ratio 16.25 (6-20) Glucose 93 (78-110) mg/dL Calculated Osmolality 293.0 H (267-292) mOsm/kg Calcium 7.6 L (8.7-10.7) mg/dL Magnesium 2.7 H (1.6-2.4) mg/dL Total Bilirubin 0.3 D (0.3-1.2) mg/dL AST 54 H (8-39) IU/L ALT 20 (9-52) IU/L Alkaline Phosphatase 43 (38-126) IU/L Total Protein 5.1 L (6.1-8.0) g/dL Albumin 2.7 L (3.5-4.8) g/dL Globulin 2.4 L (2.50-4.10) g/dL Albumin/Globulin Ratio 1.10 L (1.3-2.0) mg/g Objective : Exam - General General Appearance: Cooperative - Respiratory Respiratory Exam: Clear to Auscultation - Bilaterally, Breathing Non Labored, Normal To Percussion - Cardiovascular Cardiovascular Exam: RRR, No Murmur, No Clicks, No Gallops - GI/Abdominal GI/Abdominal Exam: Normal Bowel Sounds, Soft - Extremities Extremities Exam: No Clubbing Present, No Edema Present, No Cyanosis Present - Neurological Neurological Exam: Alert, Oriented x 3, No Facial Droop, Speech Intact / Clear - Psychiatric Psychiatric Exam: Normal Mood Assessment and Plan - Patient Problems (1) Right lower lobe pneumonia Current Visit: Yes Status: Acute Comment: Improving lung sounds clear white count down to 16,000 as well as her left shift continue ceftriaxone 2 g daily (2) Anemia due to acute blood loss Current Visit: Yes Status: Acute Comment: Most likely chronic when the EGD colonoscopy as outpatient she is not having active GI bleed smear is a brown not black heme negative according to nursing will stop Protonix drip (3) GI bleed Current Visit: Yes Status: Acute Comment: See above Qualifiers: GI bleed type/associated pathology: unspecified gastrointestinal hemorrhage type Qualified Description: Gastrointestinal hemorrhage, unspecified gastrointestinal hemorrhage type Qualifier Code(s): (K92.2) Gastrointestinal hemorrhage, unspecified (4) UTI (urinary tract infection) Current Visit: Yes Status: Acute Comment: This is chronic if futile back in her history 03/10/2014 1516 she's had Klebsiella, Citrobacter and lately here Citrobacter freight on the also sensitive to ceftriaxone I will leave her infection is from her pneumonia I also discussed this with Dr. Miguel A Painting infectious disease in [place] which also recommended only ceftriaxone and the main infection is her pneumonia considering she has a positive chest x-ray we also had a send out for Legionella antigen for completeness Qualifiers: Urinary tract infection type: acute cystitis Hematuria presence: with hematuria Qualified Description: Acute cystitis with hematuria Qualifier Code(s): (N30.01) Acute cystitis with hematuria - Assessment / Plan Additional Assessment/Plan Details: Overall patient is improving from her sepsis standpoint I would say she is not septic today continue antibiotics we will stop Protonix drip, Protonix 40 IV daily I will consult PT OT as well I discussed this with multiple family members which are all in agreement including all to both daughters and son
[2017-01-03] MEDS: cefTRIAXone Inj 2 GM in Sodium Chloride 0.9% 100 ML IV SCH (12:02)
[2017-01-03 13:54] LABS: STOOL OCCULT BLOOD 1 NEGATIVE (NEGATIVE)
[2017-01-03] MEDS: oxyCODONE IR Tab 5 MG TAB PO PRN (14:00)
[2017-01-03] MEDS: PANTOPRAZOLE 40 MG TABLET PO SCH (15:58)
[2017-01-03] MEDS: ONDANSETRON 4 MG/2 ML VIAL IVP PRN (17:52)
[2017-01-03] MEDS: NORMAL SALINE 10 ML SYRINGE FLUSH IVP PRN (18:27)
[2017-01-03] MEDS: SUMAtriptan Succinate 6 MG/0.5 ML SUBCUT ONE ×2 (20:10→20:12)
[2017-01-03] MEDS: GABAPENTIN 300 MG CAPSULE PO SCH (20:48)
[2017-01-03 20:55] LABS: STOOL OCCULT BLOOD 2 NEGATIVE (NEG)
[2017-01-04 05:49] LABS: BASOPHILS # (AUTO) 0.03 10*3/UL; BASOPHILS % (AUTO) 0.4 % (0-1); EOSINOPHILS # (AUTO) 0.14 10*3/UL; EOSINOPHILS % (AUTO) 1.7 % (0-8); HEMATOCRIT 30.2 % (37.0-47.0); HEMOGLOBIN 9.3 g/dL (12.0-16.0); LYMPHOCYTES # (AUTO) 1.43 10*3/uL; MEAN CORPUSCULAR HEMOGLOBIN 22.8 PG (27-31); MEAN CORPUSCULAR HGB CONC 30.8 g/dL (33-37); MEAN PLATELET VOLUME 9.4 FL (7.4-12.2); MONOCYTES # (AUTO) 0.47 10*3/UL (0.3-0.8); MONOCYTES % (AUTO) 5.7 % (5-15); NEUTROPHILS # (AUTO) 6.13 10*3/UL; NEUTROPHILS % (AUTO) 74.7 % (50-80); RED BLOOD COUNT 4.08 10^6/uL (4.20-5.40)
[2017-01-04 05:52] LABS: SERUM ALBUMIN 2.7 g/dL (3.5-4.8)
[2017-01-04] MEDS: oxyCODONE IR Tab 5 MG TAB PO PRN (06:07)
[2017-01-04] MEDS: PANTOPRAZOLE 40 MG TABLET PO SCH ×2 (06:07→16:29)
[2017-01-04 06:17] LABS: PLATELET MORPHOLOGY COMMENT NORMAL MORPHOLOGY (NORM); WBC MORPHOLOGY COMMENT NORMAL MORPHOLOGY (NORM)
[2017-01-04 06:18] LABS: RBC MORPHOLOGY COMMENT SEE COMMENTS (NORM)
[2017-01-04 06:38] LABS: STOOL OCCULT BLOOD 3 NEGATIVE (NEG)
[2017-01-04] MEDS: NORMAL SALINE 10 ML SYRINGE FLUSH IVP PRN ×3 (08:12→11:43)
[2017-01-04] MEDS: Phenazopyridine Tab 100 MG TAB PO SCH (08:12)
[2017-01-04] MEDS: Multivitamin Tab 1 TAB PO SCH (08:12)
[2017-01-04] MEDS: ONDANSETRON 4 MG/2 ML VIAL IVP PRN (08:12)
[2017-01-04] MEDS ORDERED: Acetaminophen 1000mg Inj 1,000 MG in Premix 1 BAG IV ONE (08:20)
[2017-01-04] MEDS ORDERED: ONDANSETRON 4 MG/2 ML VIAL IVP PRN (09:25)
[2017-01-04] MEDS: Calcium/Vit D 600mg/400u Tab 1 TAB TABLET PO SCH ×2 (09:39→20:27)
--- NOTE | 2017-01-04 11:04 | OTI REPORT ---
Thank you for the referral of Cristela Blanca. She was seen on 01/03/17 for an occupational therapy inpatient evaluation secondary to generalized weakness. SUBJECTIVE: The patient is an 81-year-old female who is being seen today secondary to having sepsis, pneumonia, a UTI, a GI bleed, and chronic pain syndrome. The patient does live alone in the [facility] apartments. The patient reports that prior to admission she was independent with all activities of daily living including her laundry, groceries, dressing abilities, and showering. She states the one thing she is having a lot of difficulty with is cooking for herself. The patient also reports that toileting is very difficult for her. She states even though she is dressing herself, she states it is a very big struggle to dress herself. She states there is a lot of time involved to get her socks on and off. The patient states that she gets acid reflux quite frequently and this is probably causing her pneumonia. It is recommended that the nursing techn be consulted for the patient's diet in regards to her acid reflux. The patient's family was also spoken to and they are concerned that the patient does not eat enough. They would like some ideas on how to increase her caloric intake but not affecting her acid reflux disorder. PAST MEDICAL HISTORY: Past medical history can be found in the patient's medical record. OBJECTIVE FINDINGS: General observations: The patient was oriented x4. Range of motion: Today the patient had minimal shoulder motion; she had 0 degrees of right shoulder motion and 0-30 degrees of left shoulder motion. Elbow range of motion was within functional limits bilaterally. Wrist range of motion was within functional limits bilaterally. Strength: Strength in biceps flexion was 3+/5, triceps was 3+/5, and wrist flexion/extension was 3/5. The patient has had surgery on her right thumb which is very weak. She has poor to fair imaging aide strength. Pain: The patient reports her pain is mainly in her back as well as her shoulders, but she has pain throughout her whole body including both shoulders, both hips, both knees, and her right foot. She states her pain can be anywhere from a 2 to an 8/10 on the verbal analog scale (0=no pain, 10=worst pain) depending on the time of the day and what activities she is participating in. She does have a lot of arthritis that affects her. Activities of daily living: We attempted socks for lower extremity dressing and the patient really struggled and needed assistance to start the socks to get them off the heel. The patient has a lot of weakness in her right upper extremity. She states that she tries not to use her left upper extremity and hand to doff socks, but her right hand was a lot weaker than normal today. After several attempts of this, the therapist did get adaptive equipment. The patient was issued a assembly member as well as a sock aide and was instructed in their use. The patient was able to doff her sock with use of the assembly member with max assist. She did attempt the sock aide and needed mod assist to don the socks. She states with practice, she thinks she will really like the sock aide. The patient was also issued some toilet tongs and instructed in their use. The patient did try putting the toilet paper on the toilet tongs and attempting a simulated version of going to the bathroom. She thought this may help as she is having a lot of difficulty wiping the front and back. The patient's nurse was also instructed in the use of the toilet tongs and she stated that they would assist the patient with attempting to use these while in the hospital. Transfers: The patient requires min assist to transfer from sit to stand. Ambulation: We did do a little bit of functional ambulation in the room with a standard walker. The patient usually uses a wheeled walker. She had a lot of difficulty with her shoulders using this type of walker. The patient fatigued very easily and she said her legs felt very weak with ambulation. ASSESSMENT: The patient would benefit from continued skilled occupational therapy to address use of adaptive equipment, improving her activities of daily living, and increasing her strength. Problem List: Weakness Decreased active range of motion Pain Decreased ability to perform ADLs Short-Term Goals: To be met by discharge from inpatient: Patient will be able to dress lower extremities with modified independence with use of assembly member and sock aide. Patient will improve upper extremity strength of elbow and wrist to 4/5 to improve strength for functional transfers and ADLs. Patient will be able to use the toilet tongs independently when using the restroom. Patient will be able to take a shower with stand by assist, demonstrating independence and safety with her balance. Patient will be able to complete all functional transfers to bed, chair, and toilet with stand by assistance. Long-Term Goals: To be met following discharge from inpatient: Patient will return back to her apartment, demonstrating independence and safety with all activities of daily living and functional transfers with the use of her adaptive equipment. TREATMENT PLAN: Patient will be seen B.I.D during the week and one time per day over the weekend as an inpatient to address the above goals and objectives. INITIAL TREATMENT: Treatment today consisted of the initial evaluation followed by thorough instruction of use of the assembly member, sock aide, and toilet tongs. The patient practiced and demonstrated use of adaptive equipment with min to mod assist. The patient completed functional ambulation with a standard walker with min assist secondary to shoulder pain. The patient does demonstrate a lot of fatigue and decreased activity tolerance as well as pain with movement. ASHOK
[2017-01-04] MEDS: ACETAMINOPHEN PO PRN (11:21)
[2017-01-04] MEDS: CAFFEINE PO PRN (11:21)
[2017-01-04] MEDS: ASPIRIN PO PRN (11:21)
[2017-01-04] MEDS ORDERED: diphenhydrAMINE 50 MG/1 ML VIAL IVP ONE (11:29)
--- NOTE | 2017-01-04 11:33 | PDOC(PROG) ---
Interval History: Overall patient is doing much better she does have a headache this morning we have tried IV Tylenol this did not help much at home she usually takes Excedrin she states that she takes this couple times a week she does have a history of anemia and also comes in with a low hemoglobin that is now improved Objective : Data - Labs CBC and BMP: 01/04/17 05:30 01/04/17 05:30 Labs - Last 24 Hours: Laboratory Results 01/03/17 01/04/17 Range/Units 11:40 05:30 WBC 8.21 (4.8-10.8) 10^3/uL RBC 4.08 L (4.20-5.40) 10^6/uL Hgb 9.3 L (12.0-16.0) g/dL Hct 30.2 L (37.0-47.0) % MCV 74.0 L (81-99) FL MCH 22.8 L (27-31) PG MCHC 30.8 L (33-37) g/dL RDW Std Deviation 60.0 H (39-50) fL RDW Coeff of Abdulaziz 23.0 H (11.5-14.5) % Plt Count 235 (140-350) 10*3/uL MPV 9.4 (7.4-12.2) FL Immature Gran % (Auto) 0.1 (0-5) % Neut % (Auto) 74.7 (50-80) % Lymph % (Auto) 17.4 (10-50) % Emery % (Auto) 5.7 (5-15) % Eos % (Auto) 1.7 (0-8) % Baso % (Auto) 0.4 (0-1) % Immature Gran # (Auto) 0.01 10*3/UL Neut # (Auto) 6.13 10*3/UL Lymph # (Auto) 1.43 10*3/uL Emery # (Auto) 0.47 (0.3-0.8) 10*3/UL Eos # (Auto) 0.14 10*3/UL Baso # (Auto) 0.03 10*3/UL WBC Morphology Comment Normal morphology (NORM) Plt Morphology Comment Normal morphology (NORM) RBC Morph Comment See comments (NORM) Sodium 136 D (135-145) meq/L Potassium 4.2 (3.8-5.2) meq/L Chloride 107 (98-112) meq/L Carbon Dioxide 25 (23-33) meq/L Anion Gap 4 L (5-20) BUN 7 (7-22) mg/dL Creatinine 0.7 (0.50-1.20) mg/dL Estimated GFR (>60 ml/min/1.73m(2)) BUN/Creatinine Ratio 10.00 (6-20) Glucose 80 (78-110) mg/dL Calculated Osmolality 278.0 (267-292) mOsm/kg Calcium 8.0 L (8.7-10.7) mg/dL Total Bilirubin 0.6 D (0.3-1.2) mg/dL AST 15 (8-39) IU/L ALT 26 (9-52) IU/L Alkaline Phosphatase 42 (38-126) IU/L Total Protein 5.3 L (6.1-8.0) g/dL Albumin 2.7 L (3.5-4.8) g/dL Globulin 2.6 (2.50-4.10) g/dL Albumin/Globulin Ratio 1.00 L (1.3-2.0) mg/g Stool Occult Blood Negative (NEG) Objective : Exam - General General Appearance: Cooperative - Head Head Exam: Normocephalic, Atraumatic - Respiratory Respiratory Exam: Clear to Auscultation - Bilaterally, Breathing Non Labored, Normal To Percussion - Cardiovascular Cardiovascular Exam: RRR, No Murmur, No Clicks, No Gallops - GI/Abdominal GI/Abdominal Exam: Non Tender, Non Distended, Soft - Neurological Neurological Exam: Alert, No Facial Droop, Speech Intact / Clear, Moves All Extremities Equally Assessment and Plan - Patient Problems (1) Right lower lobe pneumonia Current Visit: Yes Status: Acute Comment: Resolving continue antibiotics for a total of 7 days most likely will switch to by mouth when her migraines have resolved (2) Anemia due to acute blood loss Current Visit: Yes Status: Acute Comment: Recommend iron and multivitamins she will get an EGD as an outpatient family members do not want a colonoscopy stools were negative for blood 2 check iron studies family says she has poor nutrition I will give her a banana bag (3) GI bleed Current Visit: Yes Status: Acute Comment: Stable no bright red blood per rectum or heme in the stool 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
[2017-01-04] MEDS ORDERED: Sodium Chloride 0.9% 50 ML IV ONE (11:42)
[2017-01-04] MEDS: cefTRIAXone Inj 2 GM in Sodium Chloride 0.9% 100 ML IV SCH (11:43)
[2017-01-04] MEDS ORDERED: Sodium Chloride 0.9% 1,000 ML with Multivitamin Inj 10 ML, Thiamine Inj 100 MG, Folic A... IV ONE ×5 (12:00)
--- NOTE | 2017-01-04 17:10 | OT.PROG ---
Progress Note Progress Note: S: Pt reports that her head and stomach feel better this afternoon compared to this morning. Pt reports L hand being sore from IV. O: Pt seen from 16:00 to 16:20 for therapeutic exercise. Pt completed light ROM with BUE to include biceps X 10, shoulder retraction X 10, and shoulder shrugs X 10. Pt also completed functional ambulation to include 5 sit to stands from recliner chair with SBA for safety. On last attempt pt stood 30 seconds before requiring rest break. Pt was assisted to bathroom by OT. Nursing notified. A: Pt was tired this afternoon and was only able to tolerate 20 min. of skilled occupational therapy. Pt continues to benefit from skilled occupational therapy to improve activity tolerance, safety, ADL performance, and strength. P: Continue POC. GAIL Mack
[2017-01-04] MEDS ORDERED: GABAPENTIN 300 MG CAPSULE PO ONE (18:36)
[2017-01-04] MEDS: GABAPENTIN 300 MG CAPSULE PO SCH ×2 (19:25→20:21)
[2017-01-04] MEDS: TRAVOPROST EACH EYE SCH (20:37)
[2017-01-05] MEDS: PANTOPRAZOLE 40 MG TABLET PO SCH ×2 (08:19→16:42)
[2017-01-05] MEDS: Phenazopyridine Tab 100 MG TAB PO SCH (08:19)
[2017-01-05] MEDS: DOCUSATE 100 MG CAPSULE PO SCH (08:19)
[2017-01-05] MEDS: Calcium/Vit D 600mg/400u Tab 1 TAB TABLET PO SCH ×2 (08:20→20:19)
[2017-01-05] MEDS: FERROUS GLUCONATE 324 MG TABLET PO SCH (08:20)
[2017-01-05] MEDS: CAFFEINE PO PRN (09:32)
[2017-01-05] MEDS: ACETAMINOPHEN PO PRN (09:32)
[2017-01-05] MEDS: ASPIRIN PO PRN (09:32)
[2017-01-05 09:50] LABS: HEMATOCRIT 35.1 % (37.0-47.0); HEMOGLOBIN 10.9 g/dL (12.0-16.0); MEAN CORPUSCULAR HEMOGLOBIN 22.5 PG (27-31); MEAN CORPUSCULAR HGB CONC 31.1 g/dL (33-37); MEAN CORPUSCULAR VOLUME 72.4 FL (81-99); MEAN PLATELET VOLUME 9.8 FL (7.4-12.2); RED BLOOD COUNT 4.85 10^6/uL (4.20-5.40)
--- NOTE | 2017-01-05 10:48 | PDOC(PROG) ---
Interval History: Patient looks great today she is smiling. Luckily the Fara has taking care of her migraine headache and she is much very happy about this. Objective : Data - Labs CBC and BMP: 01/05/17 09:39 01/04/17 05:30 Labs - Last 24 Hours: Laboratory Results 01/04/17 01/05/17 Range/Units 12:16 09:39 WBC 7.55 (4.8-10.8) 10^3/uL RBC 4.85 (4.20-5.40) 10^6/uL Hgb 10.9 L (12.0-16.0) g/dL Hct 35.1 L (37.0-47.0) % MCV 72.4 L (81-99) FL MCH 22.5 L (27-31) PG MCHC 31.1 L (33-37) g/dL RDW Std Deviation 59.7 H (39-50) fL RDW Coeff of Abdulaziz 23.6 H (11.5-14.5) % Plt Count 278 (140-350) 10*3/uL MPV 9.8 (7.4-12.2) FL Iron 17 L (37-170) UG/DL TIBC 277 (265-497) ug/dL % Saturation 0 L (14-50) % Vitamin B12 722 (239-931) pg/mL TSH 2.29 (0.2700-4.2000) uIU/mL Objective : Exam - General General Appearance: Cooperative - Respiratory Respiratory Exam: Clear to Auscultation - Bilaterally, Breathing Non Labored, Normal To Percussion - Cardiovascular Cardiovascular Exam: RRR, No Murmur, No Clicks - Extremities Extremities Exam: No Clubbing Present, No Edema Present, No Cyanosis Present Assessment and Plan - Patient Problems (1) Right lower lobe pneumonia Current Visit: Yes Status: Acute Comment: Resolving continue antibiotics for a total of 7 days (2) Anemia due to acute blood loss Current Visit: Yes Status: Acute Comment: Improving patient has iron deficiency and was started on iron replacement as well she is tolerating this well her stool stayed negative 2 (3) GI bleed Current Visit: Yes Status: Acute Comment: Resolved negative blood in the stools no hematemesis Qualifiers: GI bleed type/associated pathology: unspecified gastrointestinal hemorrhage type Qualified Description: Gastrointestinal hemorrhage, unspecified gastrointestinal hemorrhage type Qualifier Code(s): (K92.2) Gastrointestinal hemorrhage, unspecified (4) Generalized weakness Current Visit: Yes Status: Acute Comment: Most likely patient will need more rehabilitation will put in an order to evaluate for swing bed
--- NOTE | 2017-01-05 11:41 | PTI REPORT ---
Thank you for the referral of Cristela Blanca. She was seen on 01/04/17 for an inpatient evaluation secondary to weakness. SUBJECTIVE: The patient is an 81-year-old female. The patient reports she was admitted to the hospital on Wednesday and feels like she has gotten worse while staying here in the hospital. She feels she is very weak and unsafe to be at home at this time but is hoping to get well and strong enough to return home where she is living by herself at [facility]. PAST MEDICAL HISTORY: Past medical history can be found in the patient's medical record. OBJECTIVE FINDINGS: Pain: The patient reports having generalized pain everywhere but is unable to rate it on the verbal analog scale (0=no pain, 10=worst pain). She states her biggest problem is coming down off of a migraine headache which the nurses are treating via medication. Bed mobility: The patient is able to perform bed mobility with stand by assistance with verbal cues for proper hand and leg placement. Ambulation: The patient was able to ambulate 10 feet within her room. The patient is able to ambulate up to 10 feet with her all wheeled walker from home , gait belt, and contact to stand by assistance. Activities of daily living: The patient was able to perform toileting activities with moderate assistance, specifically for lower extremity dressing. She was also able to perform standing ADL activities at the sink x5 minutes with stand by assistance. Strength: Lower extremity strength at best is 3+/5 within her available range of motion. Range of motion: Lower extremity range of motion is within functional limits. Please see occupational therapy evaluation for upper extremity range of motion and strength. ASSESSMENT: Problem List: Decreased strength Decreased endurance Decreased overall mobility Decreased safety awareness Physical Therapy Goals: To be met by discharge from inpatient: Patient will be able to ambulate up to 100 feet with appropriate assistive device for household ambulation. Patient will be able to perform all bed mobility and transfers with stand by assistance safely. Patient will increase her strength to at least 4/5 or greater. TREATMENT PLAN: Patient will be seen B.I.D during the week and one time per day over the weekend as an inpatient to address the above goals and objectives. INITIAL TREATMENT: Treatment today consisted of the initial evaluation followed by the patient ambulating 10 feet x2 within her room and performing toilet activities with min assist followed by 5 minutes of ADLs at the sink. The patient also performed therapeutic exercises including sit to stands x5 with verbal cues for propre hand placement, long arc quads, and standing heel raises. ASHOK
[2017-01-05] MEDS: cefTRIAXone Inj 2 GM in Sodium Chloride 0.9% 100 ML IV SCH (12:24)
[2017-01-05] MEDS: oxyCODONE IR Tab 5 MG TAB PO PRN ×2 (12:38→20:19)
--- NOTE | 2017-01-05 15:43 | OT.PROG ---
Progress Note Progress Note: S: Pt reports that she is feeling much better today, however does report low back pain. O: Pt seen from 11:00 to 11:20 for ADL task. Pt performed UE/LE dressing task while seated in recliner chair in preparation for therapeutic exercise. 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 Pt also completed functional mobility tasks including ambulation and sit to stand transfers. Pt tolerates standing X 1 min during dressing tasks and requires walker or supportive surface for balance. A: Pt has made improvements with dressing and generalized safety of movements. Pt continues to benefit from skilled occupational therapy tasks to improve activity tolerance with functional tasks, improve ADL tasks, and improve strength. P: Continue POC. BLACK Mack/Trice
--- NOTE | 2017-01-05 15:52 | OT.PROG ---
Progress Note Progress Note: S: Pt reports feeling well this afternoon and reports that her headache and back pain are gone. O: Pt seen from 14:00 to 15:00 for ADL tasks to include showering, UE dressing, LE dressing, and grooming. Pt completed seated showering task to include washing /drying feet, legs, boris area, and UE with modified independence with the use of shower chair and hand held shower. Pt did require min assist to wash/dry back. Following shower task, pt completed UE dressing with set up assist, LE dressing with min assist to pull up briefs. Pt donned socks with use of sock aid with mod assist and verbal cues due to novelty of task. Pt performed grooming task to include combing hair while standing at sink X 1 min. During therapy session pt ambulated 5-7 feet and turned in tight spaces with SBA for safety. A: Pt tolerated therapy session well, however reported needing a rest break following task and did not want to walk back to room following shower. Pt continues to benefit from skilled therapy to improve ADL performance with adaptive equipment, safety, activity tolerance, strength, and functional mobility in order to return home. P: Continue POC. BLACK Mack/Trice
--- NOTE | 2017-01-05 17:38 | PT.PROG ---
Progress Note Progress Note: S. Patient stated that she is feeling better this morning and would be willing to go to the therapy gym. O. Patient ambulated 175 feet to the therapy gym with one seated rest break, then performed exercises in the form of; long arc quads, heel toe raises, marches, ball squeezes, clamshells, resisted knee flexion, and sit to stands all x 10 bilaterally. Patient ambulated 175 feet back to her room with one seated rest break. Patient was left in her chair with alarm and call light. A. Patient continues to be very weak and requires frequent rest breaks. Patient struggled to catch her breath during exercises however with seated rest breaks she was able to regain normal breathing. Patient would continue to benefit from skilled therapy P. Continue POC.
[2017-01-05] MEDS: TRAVOPROST EACH EYE SCH (20:19)
[2017-01-05] MEDS: GABAPENTIN 300 MG CAPSULE PO SCH (20:19)
[2017-01-06] MEDS: Calcium/Vit D 600mg/400u Tab 1 TAB TABLET PO SCH ×2 (08:39→21:54)
[2017-01-06] MEDS: PANTOPRAZOLE 40 MG TABLET PO SCH ×2 (08:40→17:11)
[2017-01-06] MEDS: FERROUS GLUCONATE 324 MG TABLET PO SCH (08:40)
[2017-01-06] MEDS: DOCUSATE 100 MG CAPSULE PO SCH (08:40)
[2017-01-06] MEDS: Phenazopyridine Tab 100 MG TAB PO SCH (08:41)
[2017-01-06] MEDS: oxyCODONE IR Tab 5 MG TAB PO PRN ×3 (09:08→19:36)
--- NOTE | 2017-01-06 11:09 | OT.PROG ---
Progress Note Progress Note: S: Pt reports doing well today. Her headache and back feel better after medication this morning. Pt reports she is planning on going home tomorrow morning. O: Pt was seen from 10:30 to 11:00 in room for therapy session. Pt completed seated UE exercises as tolerated due to shoulder pain with RTB. Pt is able to complete IR, ER, biceps, and hand strengthening with L UE and biceps and IR with R UE due to shoulder pain. Pt was educated in UE exercises appropriate to complete upon return to home. Pt completed sit to stands from recliner chair X 10 with SBA and stood X 5 min during during grooming tasks at sink. 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 verbal cueing. A: Pt did well with functional mobility, but did report needing rest break after standing and 10 sit to stands. Pt will benefit from therapy this afternoon to address home exercise program and work towards goals before discharge. P: Continue POC. GAIL Mack
--- NOTE | 2017-01-06 11:15 | PDOC(PROG) ---
Interval History: Patient is doing great much better had a meeting with the family today they would like to take her home tomorrow at [facility] and do the PT OT as an outpatient. She will finish her last dose of IV antibiotics. For right lower lobe pneumonia. Objective : Data - Labs CBC and BMP: 01/05/17 09:39 01/04/17 05:30 Objective : Exam - General General Appearance: Cooperative - Head Head Exam: Normal Inspection - Respiratory Respiratory Exam: Clear to Auscultation - Bilaterally, Breathing Non Labored, Normal To Percussion - Cardiovascular Cardiovascular Exam: RRR, No Murmur, No Clicks, No Gallops - GI/Abdominal GI/Abdominal Exam: Normal Bowel Sounds, Non Tender, Non Distended, Soft - Extremities Extremities Exam: No Clubbing Present, No Edema Present, No Cyanosis Present - Neurological Neurological Exam: Alert, Oriented x 3, No Facial Droop, Speech Intact / Clear Assessment and Plan - Patient Problems (1) Right lower lobe pneumonia Current Visit: Yes Status: Acute Comment: Improved last dose of antibiotic tomorrow for a total of 7 days after that patient would like to be discharged home as per family members and herself (2) Anemia due to acute blood loss Current Visit: Yes Status: Acute Comment: Most likely this is chronic in nature patient has a history of Gutierrez' s she uses a lot of aspirin and Excedrin for headaches most likely gastritis with micro-bleeds her stools were negative 2 she will need outpatient follow- up with Dr. Triplett for possible EGD (3) GI bleed Current Visit: Yes Status: Acute Qualifiers: GI bleed type/associated pathology: unspecified gastrointestinal hemorrhage type Qualified Description: Gastrointestinal hemorrhage, unspecified gastrointestinal hemorrhage type Qualifier Code(s): (K92.2) Gastrointestinal hemorrhage, unspecified (4) Generalized weakness Current Visit: Yes Status: Acute Comment: Improving with PT and OT. He says that the patient has chronic back pain for the relief Vioxx he can't known (5) Iron deficiency anemia Current Visit: Yes Status: Acute Comment: Very low iron stores I've put patient on iron given a banana bag and B12 shot
--- NOTE | 2017-01-06 12:07 | PT.PROG ---
Progress Note Progress Note: S. Patient stated that she is feeling better this morning and would be willing to go for a walk. O. Patient ambulated 300 feet around the nurses station. Nursing wanted to test her o2 saturation during ambulation, recorded at 90%. A. Patient was in much better spirits today compared to previous treatments and much more willing to do therapy. Patient reported her legs were very tired after ambulation. She appears to be much safer during ambulation and sit to stand transfers. Patient would continue to benefit from skilled therapy to increase strength, mobility and endurance. P. Continue POC.
[2017-01-06] MEDS: cefTRIAXone Inj 2 GM in Sodium Chloride 0.9% 100 ML IV SCH (13:17)
--- NOTE | 2017-01-06 16:22 | PT.PROG ---
Progress Note Progress Note: S. Patient stated she is very tired this afternoon however she is willing to go for a walk. O. patient ambulated 300 feet around the nurses station then performed seated exercises in the form of; long arc quads, heel toe raises, and marches all x 10. Patient was left in her chair with alarm and call light. A. Patient continues to be very weak and does not want to perform much exercise , She was able to ambulate full distance with no rest breaks. Patient would continue to benefit from skilled therapy to increase strength and endurance. P. Continue POC.
[2017-01-06] MEDS: TRAVOPROST EACH EYE SCH (21:54)
[2017-01-06] MEDS: GABAPENTIN 300 MG CAPSULE PO SCH (21:54)
[2017-01-07 05:32] VITALS: RESP 22; TEMP 98
[2017-01-07 06:51] LABS: BASOPHILS % (AUTO) 1.3 % (0-1); EOSINOPHILS % (AUTO) 3.6 % (0-8); HEMATOCRIT 30.1 % (37.0-47.0); HEMOGLOBIN 9.7 g/dL (12.0-16.0); MEAN CORPUSCULAR HGB CONC 32.2 g/dL (33-37); MEAN CORPUSCULAR VOLUME 71.5 FL (81-99); MEAN PLATELET VOLUME 9.3 FL (7.4-12.2); MONOCYTES % (AUTO) 11.7 % (5-15); NEUTROPHILS % (AUTO) 51.7 % (50-80); RED BLOOD COUNT 4.21 10^6/uL (4.20-5.40)
[2017-01-07 06:52] LABS: BASOPHILS # (AUTO) 0.06 10*3/UL; EOSINOPHILS # (AUTO) 0.17 10*3/UL; LYMPHOCYTES # (AUTO) 1.47 10*3/uL; MONOCYTES # (AUTO) 0.55 10*3/UL (0.3-0.8); NEUTROPHILS # (AUTO) 2.42 10*3/UL; PLATELET MORPHOLOGY COMMENT NORMAL MORPHOLOGY (NORM); WBC MORPHOLOGY COMMENT NORMAL MORPHOLOGY (NORM)
[2017-01-07 06:53] LABS: RBC MORPHOLOGY COMMENT SEE COMMENTS (NORM)
[2017-01-07 07:08] LABS: CALCIUM 8.5 mg/dL (8.7-10.7); SERUM ALBUMIN 2.8 g/dL (3.5-4.8)
[2017-01-07] MEDS: oxyCODONE IR Tab 5 MG TAB PO PRN (07:08)
[2017-01-07] MEDS: PANTOPRAZOLE 40 MG TABLET PO SCH (07:08)
--- NOTE | 2017-01-07 08:07 | DCSUMMARY ---
Hospitalization Summary Admit Date: 01/01/17 Discharge Date: 01/07/17 Hospital Course: Discharge diagnoses 1. Sepsis secondary to Right lower lobe pneumonia 2. Anemia status post blood transfusion 3. UTI with Citrobacter 4. GERD 5. Osteoporosis 6. Osteoarthritis 7. History of hyperlipidemia 8. Gutierrez esophagitis 9. Chronic interstitial cystitis 10. Macular degeneration 11 chronic back pain Hospital course This is a an 81 years old female with medical history significant for history of chronic back pain, Gutierrez esophagitis, chronic interstitial cystitis, osteoarthritis who presented to the hospital with history of waking up with shaking and chills. She described dry cough and she stated that she had fever when the ambulance got to her place. She was weak. She did have a diarrhea. Question of a dark stool. Evaluation in the ER revealed right-sided pneumonia, abnormal UA and she had anemia with hemoglobin of 7.9. She was treated with the IV antibiotics, fluids. Because of her low hemoglobin she did receive 2 units of blood. She did have a occult stool test and they were negative. However she did report that she was a taking oxycodone with aspirin and she started taking it last month. This was discontinued and she was put on OxyIR. While here we continued with IV antibiotics started physical therapy she did have episode where she had some headaches that responded to the symptomatic treatment. For her anemia her iron level was low. This was discussed surgery and she will follow up with them as an outpatient. I saw her on the day of discharge she was doing better her exam was not much remarkable. we thought that she need to finish her course of 7 days of IV antibiotics and we will discharge her home. The UA did show growth of Citrobacter. And was sensitive to Rocephin. Although I do think that's her presentation was due to the right lower lobe pneumonia. She was not interested in continuing physical therapy as an outpatient. I did write prescription for oxycodone as she had chronic care back pain issue. This would replace the oxycodone with aspirin that she has at home. She will need follow-up with her physician later on as an outpatient and follow- up with Dr. Triplett as an outpatient for consideration for scopes. Laboratory Results 01/01/17 01/01/17 01/01/17 Range/Units 11:09 11:17 11:27 WBC 11.69 H (4.8-10.8) 10^3/uL RBC 4.04 L (4.20-5.40) 10^6/uL Hgb 7.9 L (12.0-16.0) g/dL Hct 27.1 L (37.0-47.0) % MCV 67.1 L (81-99) FL MCH 19.6 L (27-31) PG MCHC 29.2 L (33-37) g/dL RDW Std Deviation 43.6 (39-50) fL RDW Coeff of Abdulaziz 18.3 H (11.5-14.5) % Plt Count 343 (140-350) 10*3/uL MPV 9.9 (7.4-12.2) FL Immature Gran % (Auto) 0.3 (0-5) % Neut % (Auto) 89.8 H (50-80) % Lymph % (Auto) 4.5 L (10-50) % [place] % (Auto) 5.0 (5-15) % Eos % (Auto) 0.1 (0-8) % Baso % (Auto) 0.3 (0-1) % Immature Gran # (Auto) 0.03 10*3/UL Neut # (Auto) 10.51 10*3/UL Lymph # (Auto) 0.53 10*3/uL [place] # (Auto) 0.58 (0.3-0.8) 10*3/UL Eos # (Auto) 0.01 10*3/UL Baso # (Auto) 0.03 10*3/UL WBC Morphology Comment Normal morphology (NORM) Plt Morphology Comment Normal morphology (NORM) RBC Morph Comment See comments (NORM) VBG pH 7.41 (7.32-7.42) VBG pCO2 36 L (45-55) mmHg VBG HCO3 23 (22-26) mmol/L VBG Base Excess -2 (-2-2) MMOL/L Sodium 135 (135-145) meq/L Potassium 3.6 L (3.8-5.2) meq/L Chloride 104 (98-112) meq/L Carbon Dioxide 24 (23-33) meq/L Anion Gap 7 (5-20) BUN 20 (7-22) mg/dL Creatinine 0.9 (0.50-1.20) mg/dL Estimated GFR (>60 ml/min/1.73m(2)) BUN/Creatinine Ratio 22.22 H (6-20) Glucose 91 (78-110) mg/dL Calculated Osmolality 282.0 (267-292) mOsm/kg Lactic Acid 0.8 (0.70-2.10) MMOL/L Calcium 7.9 L (8.7-10.7) mg/dL Magnesium 2.3 (1.6-2.4) mg/dL Iron (37-170) UG/DL TIBC (265-497) ug/dL % Saturation (14-50) % Total Bilirubin 0.4 (0.3-1.2) mg/dL AST 18 (8-39) IU/L ALT 21 (9-52) IU/L Alkaline Phosphatase 45 (38-126) IU/L Total Protein 5.5 L (6.1-8.0) g/dL Albumin 3.1 L (3.5-4.8) g/dL Globulin 2.4 L (2.50-4.10) g/dL Albumin/Globulin Ratio 1.20 L (1.3-2.0) mg/g Vitamin B12 (239-931) pg/mL TSH (0.2700-4.2000) uIU/mL Ur Collection Type Cath specimen Urine Color Yellow Urine Clarity Clear (CLEAR) Urine pH 5.5 (5.0-8.5) Ur Specific [place] 1.010 (1.005-1.030) Urine Protein Negative (NEG) mg/dl Urine Glucose (UA) Negative (NEG) mg/dL Urine Ketones Negative (NEG) Urine Occult Blood Trace-intact H (NEG) Urine Nitrate Positive H (NEG) Urine Bilirubin Negative (NEG) Urine Urobilinogen 0.2 (0.2) EU/dL Ur Leukocyte Esterase Negative (NEG) Urine RBC 0-3 (NONE) /hpf Urine WBC 0-3 (NONE) Ur Squamous Epith Cells None (NONE) Ur Renal Epithelial Cell None (NONE) Urine Crystals None Urine Bacteria Moderate (NONE) Urine Casts None (NONE) Urine Mucus None (NONE) Urine Trichomonas None (NONE) Urine Yeast None (NONE) Ur Culture Indicated? Culture set Stool Occult Blood (NEG) Ur L.pneumophila Ag (Negative) Blood Type Antibody Screen Crossmatch 01/01/17 01/01/17 01/02/17 Range/Units 13:05 22:38 04:58 WBC 21.83 H 20.10 H (4.8-10.8) 10^3/uL RBC 4.43 4.13 L (4.20-5.40) 10^6/uL Hgb 10.2 L 9.6 L (12.0-16.0) g/dL Hct 32.0 L 30.2 L (37.0-47.0) % MCV 72.2 L 73.1 L (81-99) FL MCH 23.0 L 23.2 L (27-31) PG MCHC 31.9 L 31.8 L (33-37) g/dL RDW Std Deviation 54.8 H 55.6 H (39-50) fL RDW Coeff of Abdulaziz 21.5 H 21.4 H (11.5-14.5) % Plt Count 254 225 (140-350) 10*3/uL MPV 9.5 9.6 (7.4-12.2) FL Immature Gran % (Auto) 0.4 0.2 (0-5) % Neut % (Auto) 95.3 H 92.0 H (50-80) % Lymph % (Auto) 2.7 L 4.9 L (10-50) % [place] % (Auto) 1.5 L 2.9 L (5-15) % Eos % (Auto) 0 0 (0-8) % Baso % (Auto) 0.1 0 (0-1) % Immature Gran # (Auto) 0.09 0.05 10*3/UL Neut # (Auto) 20.81 18.46 10*3/UL Lymph # (Auto) 0.59 0.99 10*3/uL [place] # (Auto) 0.32 0.59 (0.3-0.8) 10*3/UL Eos # (Auto) 0 0 10*3/UL Baso # (Auto) 0.02 0.01 10*3/UL WBC Morphology Comment Normal morphology Normal morphology (NORM) Plt Morphology Comment Normal morphology Normal morphology (NORM) RBC Morph Comment Normal morphology Normal morphology (NORM) VBG pH (7.32-7.42) VBG pCO2 (45-55) mmHg VBG HCO3 (22-26) mmol/L VBG Base Excess (-2-2) MMOL/L Sodium 140 (135-145) meq/L Potassium 4.5 (3.8-5.2) meq/L Chloride 110 (98-112) meq/L Carbon Dioxide 23 (23-33) meq/L Anion Gap 7 (5-20) BUN 13 (7-22) mg/dL Creatinine 0.8 (0.50-1.20) mg/dL Estimated GFR (>60 ml/min/1.73m(2)) BUN/Creatinine Ratio 16.25 (6-20) Glucose 108 (78-110) mg/dL Calculated Osmolality 290.0 (267-292) mOsm/kg Lactic Acid 0.8 0.8 (0.70-2.10) MMOL/L Calcium 7.3 L (8.7-10.7) mg/dL Magnesium (1.6-2.4) mg/dL Iron (37-170) UG/DL TIBC (265-497) ug/dL % Saturation (14-50) % Total Bilirubin 0.7 D (0.3-1.2) mg/dL AST 22 (8-39) IU/L ALT 25 (9-52) IU/L Alkaline Phosphatase 33 L (38-126) IU/L Total Protein 5.1 L (6.1-8.0) g/dL Albumin 2.7 L (3.5-4.8) g/dL Globulin 2.4 L (2.50-4.10) g/dL Albumin/Globulin Ratio 1.10 L (1.3-2.0) mg/g Vitamin B12 (239-931) pg/mL TSH (0.2700-4.2000) uIU/mL Ur Collection Type Urine Color Urine Clarity (CLEAR) Urine pH (5.0-8.5) Ur Specific [place] (1.005-1.030) Urine Protein (NEG) mg/dl Urine Glucose (UA) (NEG) mg/dL Urine Ketones (NEG) Urine Occult Blood (NEG) Urine Nitrate (NEG) Urine Bilirubin (NEG) Urine Urobilinogen (0.2) EU/dL Ur Leukocyte Esterase (NEG) Urine RBC (NONE) /hpf Urine WBC (NONE) Ur Squamous Epith Cells (NONE) Ur Renal Epithelial Cell (NONE) Urine Crystals Urine Bacteria (NONE) Urine Casts (NONE) Urine Mucus (NONE) Urine Trichomonas (NONE) Urine Yeast (NONE) Ur Culture Indicated? Stool Occult Blood (NEG) Ur L.pneumophila Ag (Negative) Blood Type A POSITIVE Antibody Screen Negative Crossmatch See Detail 01/02/17 01/03/17 01/03/17 Range/Units 11:55 04:32 04:37 WBC 16.16 H (4.8-10.8) 10^3/uL RBC 3.99 L (4.20-5.40) 10^6/uL Hgb 9.2 L (12.0-16.0) g/dL Hct 30.0 L (37.0-47.0) % MCV 75.2 L (81-99) FL MCH 23.1 L (27-31) PG MCHC 30.7 L (33-37) g/dL RDW Std Deviation 58.7 H (39-50) fL RDW Coeff of [place]aziz 22.4 H (11.5-14.5) % Plt Count 224 (140-350) 10*3/uL MPV 10.4 (7.4-12.2) FL Immature Gran % (Auto) 0.3 (0-5) % Neut % (Auto) 84.6 H (50-80) % Lymph % (Auto) 10.4 (10-50) % [place] % (Auto) 4.3 L (5-15) % Eos % (Auto) 0.2 (0-8) % Baso % (Auto) 0.2 (0-1) % Immature Gran # (Auto) 0.05 10*3/UL Neut # (Auto) 13.67 10*3/UL Lymph # (Auto) 1.68 10*3/uL [place] # (Auto) 0.69 (0.3-0.8) 10*3/UL Eos # (Auto) 0.03 10*3/UL Baso # (Auto) 0.04 10*3/UL WBC Morphology Comment Normal morphology (NORM) Plt Morphology Comment Normal morphology (NORM) RBC Morph Comment See comments (NORM) VBG pH (7.32-7.42) VBG pCO2 (45-55) mmHg VBG HCO3 (22-26) mmol/L VBG Base Excess (-2-2) MMOL/L Sodium 142 (135-145) meq/L Potassium 4.5 (3.8-5.2) meq/L Chloride 114 H (98-112) meq/L Carbon Dioxide 24 (23-33) meq/L Anion Gap 4 L (5-20) BUN 13 (7-22) mg/dL Creatinine 0.8 (0.50-1.20) mg/dL Estimated GFR (>60 ml/min/1.73m(2)) BUN/Creatinine Ratio 16.25 (6-20) Glucose 93 (78-110) mg/dL Calculated Osmolality 293.0 H (267-292) mOsm/kg Lactic Acid (0.70-2.10) MMOL/L Calcium 7.6 L (8.7-10.7) mg/dL Magnesium 2.7 H (1.6-2.4) mg/dL Iron (37-170) UG/DL TIBC (265-497) ug/dL % Saturation (14-50) % Total Bilirubin 0.3 D (0.3-1.2) mg/dL AST 54 H (8-39) IU/L ALT 20 (9-52) IU/L Alkaline Phosphatase 43 (38-126) IU/L Total Protein 5.1 L (6.1-8.0) g/dL Albumin 2.7 L (3.5-4.8) g/dL Globulin 2.4 L (2.50-4.10) g/dL Albumin/Globulin Ratio 1.10 L (1.3-2.0) mg/g Vitamin B12 (239-931) pg/mL TSH (0.2700-4.2000) uIU/mL Ur Collection Type Urine Color Urine Clarity (CLEAR) Urine pH (5.0-8.5) Ur Specific [place] (1.005-1.030) Urine Protein (NEG) mg/dl Urine Glucose (UA) (NEG) mg/dL Urine Ketones (NEG) Urine Occult Blood (NEG) Urine Nitrate (NEG) Urine Bilirubin (NEG) Urine Urobilinogen (0.2) EU/dL Ur Leukocyte Esterase (NEG) Urine RBC (NONE) /hpf Urine WBC (NONE) Ur Squamous Epith Cells (NONE) Ur Renal Epithelial Cell (NONE) Urine Crystals Urine Bacteria (NONE) Urine Casts (NONE) Urine Mucus (NONE) Urine Trichomonas (NONE) Urine Yeast (NONE) Ur Culture Indicated? Stool Occult Blood (NEG) Ur L.pneumophila Ag Negative (Negative) Blood Type Antibody Screen Crossmatch 01/03/17 01/04/17 01/04/17 Range/Units 11:40 05:30 12:16 WBC 8.21 (4.8-10.8) 10^3/uL RBC 4.08 L (4.20-5.40) 10^6/uL Hgb 9.3 L (12.0-16.0) g/dL Hct 30.2 L (37.0-47.0) % MCV 74.0 L (81-99) FL MCH 22.8 L (27-31) PG MCHC 30.8 L (33-37) g/dL RDW Std Deviation 60.0 H (39-50) fL RDW Coeff of Abdulaziz 23.0 H (11.5-14.5) % Plt Count 235 (140-350) 10*3/uL MPV 9.4 (7.4-12.2) FL Immature Gran % (Auto) 0.1 (0-5) % Neut % (Auto) 74.7 (50-80) % Lymph % (Auto) 17.4 (10-50) % [place] % (Auto) 5.7 (5-15) % Eos % (Auto) 1.7 (0-8) % Baso % (Auto) 0.4 (0-1) % Immature Gran # (Auto) 0.01 10*3/UL Neut # (Auto) 6.13 10*3/UL Lymph # (Auto) 1.43 10*3/uL [place] # (Auto) 0.47 (0.3-0.8) 10*3/UL Eos # (Auto) 0.14 10*3/UL Baso # (Auto) 0.03 10*3/UL WBC Morphology Comment Normal morphology (NORM) Plt Morphology Comment Normal morphology (NORM) RBC Morph Comment See comments (NORM) VBG pH (7.32-7.42) VBG pCO2 (45-55) mmHg VBG HCO3 (22-26) mmol/L VBG Base Excess (-2-2) MMOL/L Sodium 136 D (135-145) meq/L Potassium 4.2 (3.8-5.2) meq/L Chloride 107 (98-112) meq/L Carbon Dioxide 25 (23-33) meq/L Anion Gap 4 L (5-20) BUN 7 (7-22) mg/dL Creatinine 0.7 (0.50-1.20) mg/dL Estimated GFR (>60 ml/min/1.73m(2)) BUN/Creatinine Ratio 10.00 (6-20) Glucose 80 (78-110) mg/dL Calculated Osmolality 278.0 (267-292) mOsm/kg Lactic Acid (0.70-2.10) MMOL/L Calcium 8.0 L (8.7-10.7) mg/dL Magnesium (1.6-2.4) mg/dL Iron 17 L (37-170) UG/DL TIBC 277 (265-497) ug/dL % Saturation 0 L (14-50) % Total Bilirubin 0.6 D (0.3-1.2) mg/dL AST 15 (8-39) IU/L ALT 26 (9-52) IU/L Alkaline Phosphatase 42 (38-126) IU/L Total Protein 5.3 L (6.1-8.0) g/dL Albumin 2.7 L (3.5-4.8) g/dL Globulin 2.6 (2.50-4.10) g/dL Albumin/Globulin Ratio 1.00 L (1.3-2.0) mg/g Vitamin B12 722 (239-931) pg/mL TSH 2.29 (0.2700-4.2000) uIU/mL Ur Collection Type Urine Color Urine Clarity (CLEAR) Urine pH (5.0-8.5) Ur Specific [place] (1.005-1.030) Urine Protein (NEG) mg/dl Urine Glucose (UA) (NEG) mg/dL Urine Ketones (NEG) Urine Occult Blood (NEG) Urine Nitrate (NEG) Urine Bilirubin (NEG) Urine Urobilinogen (0.2) EU/dL Ur Leukocyte Esterase (NEG) Urine RBC (NONE) /hpf Urine WBC (NONE) Ur Squamous Epith Cells (NONE) Ur Renal Epithelial Cell (NONE) Urine Crystals Urine Bacteria (NONE) Urine Casts (NONE) Urine Mucus (NONE) Urine Trichomonas (NONE) Urine Yeast (NONE) Ur Culture Indicated? Stool Occult Blood Negative (NEG) Ur L.pneumophila Ag (Negative) Blood Type Antibody Screen Crossmatch 01/05/17 01/07/17 Range/Units 09:39 06:32 WBC 7.55 4.69 L (4.8-10.8) 10^3/uL RBC 4.85 4.21 (4.20-5.40) 10^6/uL Hgb 10.9 L 9.7 L (12.0-16.0) g/dL Hct 35.1 L 30.1 L (37.0-47.0) % MCV 72.4 L 71.5 L (81-99) FL MCH 22.5 L 23.0 L (27-31) PG MCHC 31.1 L 32.2 L (33-37) g/dL RDW Std Deviation 59.7 H 60.1 H (39-50) fL RDW Coeff of [place]aziz 23.6 H 24.2 H (11.5-14.5) % Plt Count 278 248 (140-350) 10*3/uL MPV 9.8 9.3 (7.4-12.2) FL Immature Gran % (Auto) 0.4 (0-5) % Neut % (Auto) 51.7 (50-80) % Lymph % (Auto) 31.3 (10-50) % [place] % (Auto) 11.7 (5-15) % Eos % (Auto) 3.6 (0-8) % Baso % (Auto) 1.3 H (0-1) % Immature Gran # (Auto) 0.02 10*3/UL Neut # (Auto) 2.42 10*3/UL Lymph # (Auto) 1.47 10*3/uL [place] # (Auto) 0.55 (0.3-0.8) 10*3/UL Eos # (Auto) 0.17 10*3/UL Baso # (Auto) 0.06 10*3/UL WBC Morphology Comment Normal morphology (NORM) Plt Morphology Comment Normal morphology (NORM) RBC Morph Comment See comments (NORM) VBG pH (7.32-7.42) VBG pCO2 (45-55) mmHg VBG HCO3 (22-26) mmol/L VBG Base Excess (-2-2) MMOL/L Sodium 138 (135-145) meq/L Potassium 3.3 L (3.8-5.2) meq/L Chloride 104 (98-112) meq/L Carbon Dioxide 29 (23-33) meq/L Anion Gap 5 (5-20) BUN 7 (7-22) mg/dL Creatinine 0.7 (0.50-1.20) mg/dL Estimated GFR (>60 ml/min/1.73m(2)) BUN/Creatinine Ratio 10.00 (6-20) Glucose 90 (78-110) mg/dL Calculated Osmolality 283.0 (267-292) mOsm/kg Lactic Acid (0.70-2.10) MMOL/L Calcium 8.5 L (8.7-10.7) mg/dL Magnesium (1.6-2.4) mg/dL Iron (37-170) UG/DL TIBC (265-497) ug/dL % Saturation (14-50) % Total Bilirubin 0.4 (0.3-1.2) mg/dL AST 13 (8-39) IU/L ALT 20 (9-52) IU/L Alkaline Phosphatase 43 (38-126) IU/L Total Protein 5.4 L (6.1-8.0) g/dL Albumin 2.8 L (3.5-4.8) g/dL Globulin 2.6 (2.50-4.10) g/dL Albumin/Globulin Ratio 1.00 L (1.3-2.0) mg/g Vitamin B12 (239-931) pg/mL TSH (0.2700-4.2000) uIU/mL Ur Collection Type Urine Color Urine Clarity (CLEAR) Urine pH (5.0-8.5) Ur Specific [place] (1.005-1.030) Urine Protein (NEG) mg/dl Urine Glucose (UA) (NEG) mg/dL Urine Ketones (NEG) Urine Occult Blood (NEG) Urine Nitrate (NEG) Urine Bilirubin (NEG) Urine Urobilinogen (0.2) EU/dL Ur Leukocyte Esterase (NEG) Urine RBC (NONE) /hpf Urine WBC (NONE) Ur Squamous Epith Cells (NONE) Ur Renal Epithelial Cell (NONE) Urine Crystals Urine Bacteria (NONE) Urine Casts (NONE) Urine Mucus (NONE) Urine Trichomonas (NONE) Urine Yeast (NONE) Ur Culture Indicated? Stool Occult Blood (NEG) Ur L.pneumophila Ag (Negative) Blood Type Antibody Screen Crossmatch Discharge instruction Diet regular Activity as started Medications Home Medications Vit C/Vit E Acetate/Lutein/Min [Ocuvite Lutein Capsule] 1 each PO DAILY [History Confirmed 01/01/17] Calcium Carbonate/Vitamin D3 [Calcium 600 + Vit D 400 Caplet] 1 cap PO BID #60 tab 09/28/12 [Clinic Confirmed 01/01/17] Aspirin/Acetaminophen/Caffeine [Excedrin Migraine Tablet] 1 tab PO PRN tab [History Confirmed 01/01/17] Travoprost (Benzalkonium) [Travatan 0.004% Eye Drop] 1 drop EACH EYE HS drop [History Confirmed 01/01/17] Phenazopyridine HCl [Pyridium] 100 mg PO QD tab 04/26/14 [History Confirmed ] SUMAtriptan Inj [Imitrex Inj] 6 mg SUBCUT ONCE #1 ml 08/26/15 [Clinic Confirmed 01/01/17] Docusate Sodium [Stool Softener] 100 mg PO DAILY tab 11/05/15 [History Confirmed 01/01/17] Inulin/Chromium Picolinate [Fiber Gummies] 1 each PO DAILY tab 11/05/15 [ History Confirmed 01/01/17] Multivitamin [Daily [place]] 1 tab PO DAILY tab 11/05/15 [History Confirmed ] Alendronate Sodium 1 tab-cap PO WEEKLY #12 tab 02/10/16 [Clinic Confirmed ] Triamcinolone Acetonide 30 gm TOPICAL QD #1 tube 05/25/16 [Clinic Confirmed ] Omeprazole 1 tab-cap PO DAILY #90 tab-cap 06/23/16 [Clinic Confirmed 01/01/17] Estrogens, Conj Vaginal Cream [Premarin Vaginal Cream] 0.5 gm VG 3XW #1 tube [Clinic Confirmed 01/01/17] Lidocaine 1 patch TRANSDERM daily/prn #30 patch 08/05/16 [Clinic Confirmed 01/01] Gabapentin 2 tab-cap PO QHS #180 tab-cap 09/23/16 [Clinic Confirmed 01/01/17] Triazolam [Halcion] 1 tab-cap ORAL QHS PRN #30 tab-cap 12/17/16 [Clinic Confirmed 01/01/17] Potassium Chloride [Klor-Con] 10 meq PO DAILY #5 tab 01/07/17 [Rx] oxyCODONE IR Tab [OxyIR Tab] 10 mg PO QID PRN #40 tab 01/07/17 [Rx] Follow-up with her PCP 1-2 weeks Follow-up with Dr. Triplett as scheduled on January 19 Condition at discharge was stable for discharge Exam - Vitals Vital Signs: Vital Signs Temperature 98.0 F Temperature Source Temporal Artery Scan Pulse Rate [Telemetry] 78 Pulse Rate [Pulse Oximeter] 76 Pulse Rate 80 Respiratory Rate 22 Blood Pressure [Left Arm] 139/52 Blood Pressure 104/54 Pulse Ox 91 Oxygen Flow Rate 1 Oxygen Delivery Method Room Air Height 5 ft 4 in Weight 148 lb 12.8 oz - General General Appearance: POSITIVE: No Acute Distress, Cooperative, Thin - Head Head Exam: POSITIVE: Normal Inspection, Atraumatic - Eye Eye Exam: POSITIVE: Normal Appearance - ENT ENT Exam: POSITIVE: Normal Exam - Neck Neck Exam: POSITIVE: Normal Inspection - Respiratory Respiratory Exam: POSITIVE: Clear to Auscultation - Bilaterally - Cardiovascular Cardiovascular Exam: POSITIVE: RRR - GI/Abdominal GI/Abdominal Exam: POSITIVE: Normal Bowel Sounds, Non Tender, Non Distended, Soft - Rectal Rectal Exam: POSITIVE: Deferred - External Exam: POSITIVE: Deferred - Extremities Additional Extremities Exam Details: Trace edema in the legs noted. - Back Back Exam: POSITIVE: Normal Inspection - Neurological Neurological Exam: POSITIVE: Alert, Oriented x 3, CN II-XII Intact - Psychiatric Psychiatric Exam: POSITIVE: Normal Affect - Integumentary Integumentary Exam: POSITIVE: Normal Color
[2017-01-07] MEDS ORDERED: Potassium Chloride Tab 10 MEQ TAB PO SCH (09:00)
[2017-01-07] MEDS: Phenazopyridine Tab 100 MG TAB PO SCH (09:01)
[2017-01-07] MEDS: FERROUS GLUCONATE 324 MG TABLET PO SCH (09:02)
[2017-01-07] MEDS: DOCUSATE 100 MG CAPSULE PO SCH (09:02)
[2017-01-07] MEDS: Calcium/Vit D 600mg/400u Tab 1 TAB TABLET PO SCH (09:02)
[2017-01-07] MEDS: cefTRIAXone Inj 2 GM in Sodium Chloride 0.9% 100 ML IV SCH (09:54)
[2017-01-10] MEDS ORDERED: ALENDRONATE 70 MG TABLET PO SCH (06:00)
== END 2017-01-07 11:15 | disposition home or self-care (01) | DRG 871 ==
LOC: ER 10:08 → ICU 11:50 → MED/SURG 01-04 08:48
PROVIDERS: ADMIT Family Medicine; ATTEND Internal Medicine
PROC: 30233N1 Transfusion of Nonautologous Red Blood Cells into Peripheral Vein, Percutaneous Approach (ICD-10-PCS; principal; 2017-01-01)
DX: A41.9 Sepsis, unspecified organism (principal); I95.9 Hypotension, unspecified; H35.30 Unspecified macular degeneration; D53.9 Nutritional anemia, unspecified; N30.01 Acute cystitis with hematuria; J18.9 Pneumonia, unspecified organism; D62 Acute posthemorrhagic anemia; K92.2 Gastrointestinal hemorrhage, unspecified; K21.9 Gastro-esophageal reflux disease without esophagitis; M19.90 Unspecified osteoarthritis, unspecified site; E78.5 Hyperlipidemia, unspecified; K22.70 Barrett's esophagus without dysplasia; N30.10 Interstitial cystitis (chronic) without hematuria; M54.9 Dorsalgia, unspecified
CPT/HCPCS: 36415 ×2; 71020; 80053; 81001; 81003; 82803; 83605; 83735; 85025; 87040; 87077; 87088; 87186 ×2; 96361; 96365; 99284 ×2; J0131; 36430; 82272; 82607; 83540; 83550; 84443; 85027; 86850; 86900; 86901; 86922; 87899; 94761; 97110; 97161; 97166; 97530; 97535; J0696; J1170; J1200; J2060; J2405; J3030; J3411; J3475; J3480; J3490; J7030; J7040; J7050; J7512; P9016

== ENCOUNTER 2017-01-14 13:00 | Inpatient (IN) | payer OTHER, BC ==
[2017-01-14] MEDS ORDERED: NORMAL SALINE 10 ML SYRINGE FLUSH IVP PRN ×2 (13:35→17:46)
[2017-01-14] MEDS ORDERED: Sodium Chloride 0.9% 1,000 ML PRIMARY IV ONE (13:35)
[2017-01-14 13:52] LABS: BUN/CREATININE RATIO 18.75 (6-20); CALCIUM 9.6 mg/dL (8.7-10.7); MAGNESIUM 2.2 mg/dL (1.6-2.4); SERUM ALBUMIN 4.3 g/dL (3.5-4.8)
[2017-01-14 13:57] LABS: BILIRUBIN,URINE NEGATIVE (NEG); CLARITY,URINE CLEAR (CLEAR); COLOR,URINE YELLOW; GLUCOSE, URINE (UA) NEGATIVE (NEG); NITRATE,URINE POSITIVE (NEG); OCCULT BLOOD,URINE SMALL (NEG); PH,URINE 6.5 (5.0-8.5); PROTEIN,URINE NEGATIVE (NEG); UROBILINOGEN,URINE 0.2 EU/dL (0.2)
[2017-01-14 14:04] LABS: BACTERIA,URINE FEW; URINE SAMPLE TYPE CATH SPECIMEN; WBC,URINE 0-1
[2017-01-14 14:05] LABS: HEMATOCRIT 38.7 % (37.0-47.0); HEMOGLOBIN 12.1 g/dL (12.0-16.0); MEAN CORPUSCULAR HEMOGLOBIN 22.8 PG (27-31); MEAN CORPUSCULAR HGB CONC 31.3 g/dL (33-37); MEAN CORPUSCULAR VOLUME 72.9 FL (81-99); RED BLOOD COUNT 5.31 10^6/uL (4.20-5.40)
[2017-01-14 14:06] LABS: BASOPHILS # (AUTO) 0.1 10*3/UL; BASOPHILS % (AUTO) 1.6 % (0-1); EOSINOPHILS # (AUTO) 0.06 10*3/UL; LYMPHOCYTES # (AUTO) 1.54 10*3/uL; MEAN PLATELET VOLUME 9.5 FL (7.4-12.2); MONOCYTES # (AUTO) 0.45 10*3/UL (0.3-0.8); MONOCYTES % (AUTO) 7.3 % (5-15); NEUTROPHILS # (AUTO) 3.96 10*3/UL; NEUTROPHILS % (AUTO) 64.7 % (50-80); PLATELET MORPHOLOGY COMMENT NORMAL MORPHOLOGY (NORM); RBC MORPHOLOGY COMMENT SEE COMMENTS (NORM); WBC MORPHOLOGY COMMENT NORMAL MORPHOLOGY (NORM)
--- NOTE | 2017-01-14 17:21 | PDOC ---
General Adult HPI - General Chief Complaint: GI Bleed / Rectal Pain Stated Complaint: incontinent of stool/dark stools Date Seen by Provider: 01/14/17 Time Seen by Provider: 13:10 Source: POSITIVE: Patient, Other (daughter) Exam Limitations: POSITIVE: No limitations Nurse's Notes Reviewed & Considered: Yes - History of Present Illness Initial Comment: The patient is an 19-year-old female who is brought to the emergency room by her doctor. Patient lives alone in the [facility]. She complains of progressive weakness for the last several days and also complains that her stools are "black". Patient was hospitalized for approximately a week in mid December for pneumonia and anemia. She also may have had a urinary tract infection at that time. She required a blood transfusions of 2 units during that hospitalization. Patient has narcotic dependent chronic low back pain and bilateral shoulder pain. Her daughter states that the patient is scheduled for evaluation by Dr. Triplett, surgeon, this next Wednesday to evaluate for gastrointestinal bleeding. Patient denies any known cardiac problems. Have you received a tetanus shot in the past 10 years?: Unknown Body Location Affected: REPORTS: Other (Progressive weakness, dark stools.) Timing: REPORTS: Constant, Getting Worse Duration: <1 week Severity: Moderate Quality: REPORTS: Other (Chronic back and shoulder pain) Context: REPORTS: None Modifying Factors: improves with: Nothing Similar Symptoms Previously: Yes Recent Care Received: REPORTS: Recently Seen, Treated by MD, Hospitalized (As above) Any Prior Injuries Related to Current Complaint?: No - Patient Home Medications Home Medications: Home Medications Vit C/Vit E Acetate/Lutein/Min [Ocuvite Lutein Capsule] 1 each PO DAILY Calcium Carbonate/Vitamin D3 [Calcium 600 + Vit D 400 Caplet] 1 cap PO BID #60 tab 09/28/12 Aspirin/Acetaminophen/Caffeine [Excedrin Migraine Tablet] 1 tab PO PRN tab Travoprost (Benzalkonium) [Travatan 0.004% Eye Drop] 1 drop EACH EYE HS drop Phenazopyridine HCl [Pyridium] 100 mg PO QD tab 04/26/14 SUMAtriptan Inj [Imitrex Inj] 6 mg SUBCUT ONCE #1 ml 08/26/15 Docusate Sodium [Stool Softener] 100 mg PO DAILY tab 05/17/16 Inulin/Chromium Picolinate [Fiber Gummies] 1 each PO DAILY tab 11/05/15 Multivitamin [Daily Olinda] 1 tab PO DAILY tab 11/05/15 Alendronate Sodium 1 tab-cap PO WEEKLY #12 tab 02/10/16 Triamcinolone Acetonide 30 gm TOPICAL QD #1 tube 05/25/16 Omeprazole 1 tab-cap PO DAILY #90 tab-cap 06/23/16 Estrogens, Conj Vaginal Cream [Premarin Vaginal Cream] 0.5 gm VG 3XW #1 tube Lidocaine 1 patch TRANSDERM daily/prn #30 patch 08/05/16 Gabapentin 2 tab-cap PO QHS #180 tab-cap 09/23/16 Triazolam [Halcion] 1 tab-cap ORAL QHS PRN #30 tab-cap 12/17/16 Potassium Chloride [Klor-Con] 10 meq PO DAILY #5 tab 01/07/17 oxyCODONE IR Tab [OxyIR Tab] 10 mg PO QID PRN #40 tab 01/07/17 - Patient Allergies Allergies/Adverse Reactions: Allergies Allergy/AdvReac Type Severity Reaction Status Date / Time codeine AdvReac NAUSEA Verified 01/14/17 13:10 Past Medical History - heen HEENT History: Glaucoma, Macular Degeneration, Cataracts, Dentures/Partials Additional HEENT History: TMJ Cardiovascular History: Hyperlipidemia Additional Cardiovasular History: HEART MURMUR Respiratory History: Pneumonia, Other (please comment) Additional Respiratory History: previous tobacco use, quit in 1967. SOB WITH ACTIVITY. SHALLOW BREATHER, HAD HOME O2 BUT STATES DIDN'T WORK FOR HER Gastrointestinal History: GERD Additional Gastrointestinal History: constipation / SAUCEDA'S ESOPHAGUS Genitourinary History: Other (please comment) Additional Genitourinary History: CHRONIC URINARY PAIN Endocrine History: Denies History Musculoskeletal History: Arthritis, Osteoporosis, Fibromyalgia, Back Pain Prosthesis or Implant: Yes (LEFT TKA, DENTAL) Neurological History: Migraines Blood Disorders: Denies History Psychiatric History: Denies History History of Sexually Transmitted Diseases: No Cancer History: Denies History In Past Year Been Physically Harmed or Verbally Threatened: No History of MDRO: No History of Other Communicable Diseases: No Tobacco Use: Former Smoker Alcohol Use: None Substance Use Type: None Previous Surgical History: Yes Type / Date of Surgery: COLONOSCOPY/ TONSILLECTOMY/LEFT TKA /EGD/ TRIAL STIMULATOR PLACEMENT Anesthesia Reactions: No Malignant Hyperthermia: No Significant Family History: No pertinent family hx Past Medical History Reviewed: Reviewed - No Changes ROS - Limitations ROS Limitations: No Limitations Constitution: REPORTS: Weakness Cardiovascular: REPORTS: Denies Cardiac Symptoms Respiratory: REPORTS: Denies Resp Symptoms Neurological: REPORTS: Denies Neuro Symptoms Gastrointestinal: REPORTS: Black Stools Endocrine: REPORTS: Denies Symptoms Musculoskeletal: REPORTS: Denies MS Symptoms Genitourinary: REPORTS: Dysuria (Chronic) Eyes: REPORTS: Denies Symptoms ENT: REPORTS: Denies Symptoms Skin: REPORTS: Denies Skin Symptoms Lympathic: REPORTS: Denies Lympathic Symptoms Immunologic: POSITIVE: Denies Symptoms Psychiatric: POSITIVE: Denies Psych Symptoms General Adult Exam - General Appearance General Appearance: POSITIVE: Alert, Cooperative, No Acute Distress, No Evidence of Trauma - HEENT HEENT: POSITIVE: Head Inspection Nml, Eyes Inspection Nml, Ears Inspection Nml, Nose Inspection Nml, Oral/Dental Inspect. Nml, Pharynx Inspect. Nml, PERRL, EOMI - Pupils Pupil Size: 3 mm: Bilateral (PERRLA) - Neck Neck: POSITIVE: Normal Inspection, Thyroid Normal - Respiratory Respiratory: POSITIVE: No Respiratory Distress, Breath Sounds Normal, Chest Non- Tender - Cardiovascular Cardiovascular: POSITIVE: Regular Rate & Rhythm, No Murmur, No Gallop, PMI Normal Peripheral Pulses: Radial (R): 3+, Radial (L): 3+ - Abdomen Abdomen: Soft: (All Quadrants), Normal Bowel Sounds: (All Quadrants), Denies Tenderness: (All Quadrants), No Splenomegaly: (All Quadrants), No Hepatomegaly: (All Quadrants), No Guarding: (All Quadrants), No Rebound: (All Quadrants), No Palpable Pulse: (All Quadrants), No Palpabale Mass: (All Quadrants), No Distention: (All Quadrants), No Rigidity: (All Quadrants) - Rectal Rectal: POSITIVE: Non Tender, Normal Rectal Tone, Heme Positive Stool (Stool dark green) - Back Back: POSITIVE: Normal Inspection - Skin Skin: POSITIVE: Normal Color, Warm, Dry, No Rash - Extremities Extremity: Non-Tender: (All Extremities), Normal ROM: (All Extremities), Normal Inspection: (All Extremities) - Neurological / Psychological Neurological: POSITIVE: Oriented X3, hrbp Normal As Tested, Motor Normal, Sensation Normal, 5, 6 General Adult Progress - Results Reviewed by me Xrays/CTs/US Reviewed by me: Yes Discussed with Radiologist: Yes Radiology Findings: Chest x-ray shows a right lower lobe infiltrate, but much reduced when compared to the right lower lobe pneumonia that she presented with in mid December. Lab Results Reviewed: Yes Lab Results:: Laboratory Results 01/14/17 01/14/17 Range/Units 13:05 13:45 WBC 6.13 (4.8-10.8) 10^3/uL RBC 5.31 (4.20-5.40) 10^6/uL Hgb 12.1 (12.0-16.0) g/dL Hct 38.7 (37.0-47.0) % MCV 72.9 L (81-99) FL MCH 22.8 L (27-31) PG MCHC 31.3 L (33-37) g/dL RDW Std Deviation 66.7 H (39-50) fL RDW Coeff of Abdulaziz 26.4 H (11.5-14.5) % Plt Count 513 H (140-350) 10*3/uL MPV 9.5 (7.4-12.2) FL Immature Gran % (Auto) 0.3 (0-5) % Neut % (Auto) 64.7 (50-80) % Lymph % (Auto) 25.1 (10-50) % [place] % (Auto) 7.3 (5-15) % Eos % (Auto) 1.0 (0-8) % Baso % (Auto) 1.6 H (0-1) % Immature Gran # (Auto) 0.02 10*3/UL Neut # (Auto) 3.96 10*3/UL Lymph # (Auto) 1.54 10*3/uL [place] # (Auto) 0.45 (0.3-0.8) 10*3/UL Eos # (Auto) 0.06 10*3/UL Baso # (Auto) 0.1 10*3/UL WBC Morphology Comment Normal morphology (NORM) Plt Morphology Comment Normal morphology (NORM) RBC Morph Comment See comments (NORM) PT 10.4 (9.7-11.4) secs INR 0.98 (0.00-5.90) N/A Sodium 138 (135-145) meq/L Potassium 4.9 (3.8-5.2) meq/L Chloride 102 (98-112) meq/L Carbon Dioxide 24 (23-33) meq/L Anion Gap 12 (5-20) BUN 15 (7-22) mg/dL Creatinine 0.8 (0.50-1.20) mg/dL Estimated GFR (>60 ml/min/1.73m(2)) BUN/Creatinine Ratio 18.75 (6-20) Glucose 95 (78-110) mg/dL Calculated Osmolality 286.0 (267-292) mOsm/kg Calcium 9.6 (8.7-10.7) mg/dL Magnesium 2.2 (1.6-2.4) mg/dL Total Bilirubin 0.4 (0.3-1.2) mg/dL AST 33 (8-39) IU/L ALT 25 (9-52) IU/L Alkaline Phosphatase 58 (38-126) IU/L Total Protein 7.4 (6.1-8.0) g/dL Albumin 4.3 (3.5-4.8) g/dL Globulin 3.1 (2.50-4.10) g/dL Albumin/Globulin Ratio 1.30 (1.3-2.0) mg/g Ur Collection Type Cath specimen Urine Color Yellow Urine Clarity Clear (CLEAR) Urine pH 6.5 (5.0-8.5) Ur Specific [place] 1.010 (1.005-1.030) Urine Protein Negative (NEG) mg/dl Urine Glucose (UA) Negative (NEG) mg/dL Urine Ketones Negative (NEG) Urine Occult Blood Small H (NEG) Urine Nitrate Positive H (NEG) Urine Bilirubin Negative (NEG) Urine Urobilinogen 0.2 (0.2) EU/dL Ur Leukocyte Esterase Negative (NEG) Urine RBC 1-3 (NONE) /hpf Urine WBC 0-1 (NONE) Ur Squamous Epith Cells None (NONE) Ur Renal Epithelial Cell None (NONE) Urine Crystals None Urine Bacteria Few (NONE) Urine Casts None (NONE) Urine Mucus None (NONE) Urine Trichomonas None (NONE) Urine Yeast None (NONE) Ur Culture Indicated? Culture set - Patient's Progress Pain Medication Addressed: POSITIVE: Not Applicable School/Work Release Addressed: POSITIVE: Not Applicable Re-Examine Time: 16:00 Re-Examine Comment: Condition unchanged. Options of treatment discussed with the patient and the patient's daughter. Patient not able to care for herself under her present living arrangements. Status: POSITIVE: Unchanged, Re-Examined Antibiotics Given: No - Consult Consult (If Yes, Name of Consulting MD & Time Called): Yes (, hospitalist 1600, ) Counseled: POSITIVE: Patient, Family, RE: Lab Results, RE: Radiology Results, RE : DX, RE: Need for F/U Patient Care Time - Estimated PCT Patient Care Time (In Minutes): 60 Vital Signs - Recent Vital Signs Vital Signs: Blood pressure 152/80, heart rate 97, respiratory rate 18, temperature 99.4F, oxygen saturation on room air 95% - VS Reviewed Vital Signs Reviewed: Yes Discharge Clinical Impression: GI bleed, Generalized weakness Discharge Disposition: Admit to Inpatient Condition: Fair Date Decision to Admit to Inpatient: 01/14/17 Time Decision to Admit to Inpatient: 16:00
[2017-01-14] MEDS ORDERED: LIDOCAINE W/ SODIUM BICARB 0.5 ML SYR SUBD PRN (17:46)
[2017-01-14] MEDS ORDERED: ACETAMINOPHEN 325 MG TABLET PO PRN (17:46)
[2017-01-14] MEDS ORDERED: ONDANSETRON 4 MG/2 ML VIAL IVP PRN (17:46)
[2017-01-14] MEDS ORDERED: TRIAMCINOLONE ACETONIDE TOPICAL SCH (17:46)
[2017-01-14] MEDS ORDERED: ESTROGENS,CONJUGATED 30 GM CREAM VAGINAL SCH (17:46)
[2017-01-14] MEDS ORDERED: SUMAtriptan Succinate 6 MG/0.5 ML SUBCUT ONE (18:00)
--- NOTE | 2017-01-14 19:57 | DI ---
XR CXR 2VW PA/LAT,01/14/2017 2:53 PM: Clinical History: Weakness and recent pneumonia. Previous Exam: January 01, 2017 Findings: PA and lateral views of the chest are obtained, and demonstrate stable diffuse COPD. There is some density within the right lung base. The cardiomediastinum and bony thorax are unremarka ble. There is mild dextroscoliosis of the thoracic lumbar junction. Vertebral body height is preserved. Intervertebral disc height is also preserved. Impression: Airspace disease within the right midlung field in the region of a prior pneumonia. This could repres ent a resolving pneumonia with still some persistence. Recommend continued treatment and followup omari ging after resolution.
[2017-01-14] MEDS: cefTRIAXone Inj 2 GM in Sodium Chloride 0.9% 100 ML IV SCH (20:34)
[2017-01-14] MEDS: Calcium/Vit D 600mg/400u Tab 1 TAB TABLET PO SCH (20:34)
[2017-01-14] MEDS: Sodium Chloride 0.9% 1,000 ML PRIMARY IV SCH (20:36)
[2017-01-14] MEDS: oxyCODONE IR Tab 5 MG TAB PO PRN (20:36)
[2017-01-14] MEDS ORDERED: GABAPENTIN 300 MG CAPSULE PO SCH (21:00)
[2017-01-14] MEDS: TRAVOPROST EACH EYE SCH (21:50)
[2017-01-14] MEDS: OMEPRAZOLE 20 MG PO SCH (21:57)
[2017-01-14] MEDS: GABAPENTIN 300 MG PO SCH (21:57)
[2017-01-14] MEDS: TRIAZOLAM 0.25 MG ORAL PRN (21:58)
--- NOTE | 2017-01-14 23:01 | PDOC ---
History and Physical - History of Present Illness Date and Time of Service: 01/14/2017, 1944 Chief Complaint: fecal incontinence, weakness History of Present Illness: This is a very pleasant 81 YO female that came in accompanied by her family in the setting of feeling more weak today and having noted fecal incontinence since her recent admission for pneumonia. She states she had an episode of fecal incontinence in the grocery store several months ago but did not seek care for that. She normally wears a pad and is not feeling the sensation to go. The stool is described as dark per the family, but the patient cannot say as her eye sight is described as poor. She did have anemia on her prior admission, required a couple units of blood, has a known history of Leyva's esophagitis, and had been on excedrin and aspirin in percodan. She was instructed to stop her aspirin medications, go on iron therapy, and had finished an IV course of rocephin for her pneumonia at the time of her prior discharge. She denies any fever, chills, cough, nausea, vomiting, constipation , and diarrhea associated with the incontinence and weakness. The patient has been reportedly eating well, but has been losing weight. The patient has known spinal stenosis and lumbar spondylosis that is severe. She has not taken any pepto-bismol for her symptoms. She was heme negative on prior admission, but reportedly was positive in the ER. It is not clear if the patient has been compliant with her iron therapy, but she continued percodan as she could not obtain a prescription for oxycodone alone. She has had chronic pain for 18 years on narcotics and also has chronic interstitial cystitis that makes interpretation of UTI parameters difficult. Past Medical History Medical History: 1. GERD. 2. Osteoporosis. 3. Lumbar spondylosis. 4. Osteoarthritis. 5. Hx of hyperlipidemia. 6. Leyva's esophagitis. 7. macular degeneration. 8. chronic interstitial cystitis with recurrent UTI's Surgical History: 1. colonoscopies and EGD's. most recent colonoscopy had a tubular adenoma in 2009. 2. left knee surgery. 3. spinal stimulator with subsequent removal ( this was a stimulator electrode test. patient then had a blood patch). 4. hand surgery. Family History: Reviewed an Not Pertinent Pertinent Family History: significant for heart disease in her father Past Social History: quit smoking in the s, no alcohol, has children that are healthy. ambulates with walker and lives independently in the [facility]. Tobacco Use: Former Smoker Substance Use Type: None Alcohol Use: None Medication / Allergies Home Medications: Home Medications Medication Instructions Recorded Confirmed Type Vit C/Vit E Acetate/Lutein/Min 1 each PO DAILY 12/19/10 01/14/17 History [Ocuvite Lutein Capsule] Calcium Carbonate/Vitamin D3 1 cap PO BID #60 tab 09/28/12 01/14/17 Clinic [Calcium 600 + Vit D 400 Caplet] Aspirin/Acetaminophen/Caffeine 1 tab PO PRN tab 01/16/13 01/14/17 History [Excedrin Migraine Tablet] Travoprost (Benzalkonium) 1 drop EACH EYE HS drop 01/16/13 01/14/17 History [Travatan 0.004% Eye Drop] Phenazopyridine HCl [Pyridium] 100 mg PO QD tab 04/26/14 01/14/17 History SUMAtriptan Inj [Imitrex Inj] 6 mg SUBCUT ONCE #1 ml 08/26/15 01/14/17 Clinic Docusate Sodium [Stool Softener] 100 mg PO DAILY tab 11/05/15 01/14/17 History Inulin/Chromium Picolinate [Fiber 1 each PO DAILY tab 11/05/15 01/14/17 History Gummies] Multivitamin [Daily Olinda] 1 tab PO DAILY tab 11/05/15 01/14/17 History Alendronate Sodium 1 tab-cap PO WEEKLY #12 tab 02/10/16 01/14/17 Clinic Triamcinolone Acetonide 30 gm TOPICAL QD #1 tube 05/25/16 01/14/17 Clinic Omeprazole 1 tab-cap PO DAILY #90 tab-cap 06/23/16 01/14/17 Clinic Lidocaine 1 patch TRANSDERM daily/prn #30 08/05/16 01/14/17 Clinic patch Gabapentin 2 tab-cap PO QHS #180 tab-cap 09/23/16 01/14/17 Clinic Triazolam [Halcion] 1 tab-cap ORAL QHS PRN #30 tab-cap 12/17/16 01/14/17 Clinic Potassium Chloride [Klor-Con] 10 meq PO DAILY #5 tab 01/07/17 01/14/17 Rx oxyCODONE IR Tab [OxyIR Tab] 10 mg PO QID PRN #40 tab 01/07/17 01/14/17 Rx Allergies/Adverse Reactions: Allergies Allergy/AdvReac Type Severity Reaction Status Date / Time codeine AdvReac NAUSEA Verified 01/14/17 18:17 Review of Systems - Review of Systems All Systems: Reviewed & No Additional Complaints Except as Stated (I did a 12 point review of systems and it was negative exept for that noted in HPI above and that noted below:) - Constitutional Constitutional: REPORTS: Weight Loss (5 pounds this past week), Weakness, Recent Illness (pneumonia) - Gastrointestinal Gastrointestinal / Abdominal: REPORTS: Other (denies nausea, vomiting, diarrhea , or constipation.) - Musculoskeletal Musculoskeletal: REPORTS: Back Pain (chronic) Exam - Vitals Vital Signs: Vital Signs Temperature 97.6 F Temperature Source Temporal Artery Scan Pulse Rate [Pulse Oximeter] 84 Pulse Rate [Pulse Oximeter] 81 Pulse Rate 93 Respiratory Rate 20 Blood Pressure [Left Arm] 138/64 Blood Pressure 134/74 Pulse Ox 93 Oxygen Delivery Method Room Air Height 5 ft 4 in Weight 138 lb 14.4 oz - General General Appearance: POSITIVE: No Acute Distress, Cooperative - Head Head Exam: POSITIVE: Normal Inspection, Normocephalic, Atraumatic - Eye Eye Exam: POSITIVE: No Scleral Icterus - ENT ENT Exam: POSITIVE: Mucous Membranes Moist - Neck Neck Exam: POSITIVE: Normal Inspection, No Tenderness, No Thyromegaly - Respiratory Respiratory Exam: POSITIVE: Clear to Auscultation - Bilaterally, Breathing Non Labored, Normal to Percussion and Palpation - Cardiovascular Cardiovascular Exam: POSITIVE: RRR, No Murmur, No Clicks, No Gallops, No Rubs, No JVD - GI/Abdominal GI/Abdominal Exam: POSITIVE: Normal Bowel Sounds, Non Tender, Non Distended, Soft - Rectal Rectal Exam: POSITIVE: Deferred (I had done rectal exam on prior hospital stay and patient had repeat rectal exam documented by ER provider. It is hard to interpret a heme positive result in the setting of the patient being on iron therapy) - Extremities Extremities Exam: POSITIVE: No Clubbing Present, No Edema Present, No Cyanosis Present - Back Back Exam: POSITIVE: No CVA Tenderness - Neurological Neurological Exam: POSITIVE: Alert, Oriented x 3, No Facial Droop, Speech Intact / Clear, Moves All Extremities Equally Results - Labs CBC and BMP: 01/14/17 13:05 01/14/17 13:05 Labs - Last 24 Hours: Laboratory Results 01/14/17 01/14/17 Range/Units 13:05 13:45 WBC 6.13 (4.8-10.8) 10^3/uL RBC 5.31 (4.20-5.40) 10^6/uL Hgb 12.1 (12.0-16.0) g/dL Hct 38.7 (37.0-47.0) % MCV 72.9 L (81-99) FL MCH 22.8 L (27-31) PG MCHC 31.3 L (33-37) g/dL RDW Std Deviation 66.7 H (39-50) fL RDW Coeff of Abdulaziz 26.4 H (11.5-14.5) % Plt Count 513 H (140-350) 10*3/uL MPV 9.5 (7.4-12.2) FL Immature Gran % (Auto) 0.3 (0-5) % Neut % (Auto) 64.7 (50-80) % Lymph % (Auto) 25.1 (10-50) % Levy % (Auto) 7.3 (5-15) % Eos % (Auto) 1.0 (0-8) % Baso % (Auto) 1.6 H (0-1) % Immature Gran # (Auto) 0.02 10*3/UL Neut # (Auto) 3.96 10*3/UL Lymph # (Auto) 1.54 10*3/uL Levy # (Auto) 0.45 (0.3-0.8) 10*3/UL Eos # (Auto) 0.06 10*3/UL Baso # (Auto) 0.1 10*3/UL WBC Morphology Comment Normal morphology (NORM) Plt Morphology Comment Normal morphology (NORM) RBC Morph Comment See comments (NORM) PT 10.4 (9.7-11.4) secs INR 0.98 (0.00-5.90) N/A Sodium 138 (135-145) meq/L Potassium 4.9 (3.8-5.2) meq/L Chloride 102 (98-112) meq/L Carbon Dioxide 24 (23-33) meq/L Anion Gap 12 (5-20) BUN 15 (7-22) mg/dL Creatinine 0.8 (0.50-1.20) mg/dL Estimated GFR (>60 ml/min/1.73m(2)) BUN/Creatinine Ratio 18.75 (6-20) Glucose 95 (78-110) mg/dL Calculated Osmolality 286.0 (267-292) mOsm/kg Calcium 9.6 (8.7-10.7) mg/dL Magnesium 2.2 (1.6-2.4) mg/dL Total Bilirubin 0.4 (0.3-1.2) mg/dL AST 33 (8-39) IU/L ALT 25 (9-52) IU/L Alkaline Phosphatase 58 (38-126) IU/L Total Protein 7.4 (6.1-8.0) g/dL Albumin 4.3 (3.5-4.8) g/dL Globulin 3.1 (2.50-4.10) g/dL Albumin/Globulin Ratio 1.30 (1.3-2.0) mg/g Ur Collection Type Cath specimen Urine Color Yellow Urine Clarity Clear (CLEAR) Urine pH 6.5 (5.0-8.5) Ur Specific [place] 1.010 (1.005-1.030) Urine Protein Negative (NEG) mg/dl Urine Glucose (UA) Negative (NEG) mg/dL Urine Ketones Negative (NEG) Urine Occult Blood Small H (NEG) Urine Nitrate Positive H (NEG) Urine Bilirubin Negative (NEG) Urine Urobilinogen 0.2 (0.2) EU/dL Ur Leukocyte Esterase Negative (NEG) Urine RBC 1-3 (NONE) /hpf Urine WBC 0-1 (NONE) Ur Squamous Epith Cells None (NONE) Ur Renal Epithelial Cell None (NONE) Urine Crystals None Urine Bacteria Few (NONE) Urine Casts None (NONE) Urine Mucus None (NONE) Urine Trichomonas None (NONE) Urine Yeast None (NONE) Ur Culture Indicated? Culture set - Imaging Status: Image Reviewed by Me (CXR on my view, shows improvements in recent pneumonia. I think the pneumonia needs re-evaluated in next 6 to 8 weeks. no symptoms of pneumonia, I think this represents resolving pneumonia) Assessment and Plan - Patient Problems (1) Fecal incontinence Current Visit: Yes Status: Acute Qualifiers: Fecal incontinence type: unspecified Qualified Description: Incontinence of feces, unspecified fecal incontinence type Qualifier Code( s): (R15.9) Full incontinence of feces (2) UTI (urinary tract infection) Current Visit: Yes Status: Acute Qualifiers: Urinary tract infection type: acute cystitis Hematuria presence: with hematuria Qualified Description: Acute cystitis with hematuria Qualifier Code(s): (N30.01) Acute cystitis with hematuria (3) Chronic pain syndrome Current Visit: Yes Status: Acute (4) GERD (gastroesophageal reflux disease) Current Visit: Yes Status: Acute Comment: per patient, esophatitis has been chronic, related to Leyva's Qualifiers: Esophagitis presence: with esophagitis Qualified Description: Gastroesophageal reflux disease with esophagitis Qualifier Code(s): (K21.0 ) Gastro-esophageal reflux disease with esophagitis (5) Macular degeneration Current Visit: Yes Status: Chronic (6) Generalized weakness Current Visit: Yes Status: Acute - Assessment / Plan Additional Assessment/Plan Details: admit the patient get stool studies, question C. diff STOP PERCODAN. I explained to the patient and her children, present at bedside , that the patient is NOT a candidate for aspirin therapy will discuss with surgery in AM as patient may tolerate a colonoscopy prep better in the hospital considering her weakness and her medical problems increase PPI dose, treat IV for now to increase blood levels heme test stools check labs in AM for the back pain, stenosis could be worsening, so may repeat MRI of lumbar spine to see if any issues are surgical in nature. Please note the patient states she can still walk and denied any other neurologic symptoms in her legs. I think the patient could have a UTI. Grew out citrobacter on prior admission. Should have responded to rocephin. urine culture pending at this time. Start rocephin empirically for now. discussed the plan with the patient and her family and they agree.
[2017-01-14] MEDS: Patch Removal PATCH TRANSDERM SCH (23:23)
[2017-01-14] MEDS: Pantoprazole Inj 40 MG in Normal Saline Flush 10 ML IVP SCH (23:42)
--- NOTE | 2017-01-15 00:45 | DI ---
HISTORY: Fecal incontinence. Recent GI bleed. COMPARISON: None available. TECHNIQUE: CT images of the abdomen and pelvis were obtained and submitted for interpretation. FINDINGS: Positioning of the patient with arms at sides creates artifact that limits evaluation of f ine anatomic detail. Normal CT appearance of the liver, pancreas, spleen, right kidney, and adrenal glands. The gallbladd er is hydropic. There is radiopaque material along the posterior gallbladder wall. This is favored to represent sludge versus small stones, though gallbladder wall calcification can have a similar brooks earance. There is a 4.5 cm simple cyst in the upper pole of the left kidney. Ureters and bladder ar e unremarkable. No radiopaque renal or collecting system calculi. No evidence of obstructive uropat hy. Hollow viscus organs demonstrate normal course and caliber. The appendix is within normal limit s. There is no intraperitoneal free air or fluid. Vascular structures are intact with atheromatous aortoiliac and coronary artery calcifications. No abdominopelvic lymphadenopathy is present. The uterus and adnexa are unremarkable, though better evaluated with pelvic ultrasound. There is no inguinal or umbilical hernia. There is right middle lobe consolidation and bibasilar tree in bud opacities. The wall of the distal esophagus is thickened, though incompletely distended. There is diffuse demineralization of the osseous structures with multilevel degenerative disc disease and is sigmoid curvature of the thoracolumbar spine. There is grade 1-2 anterolisthesis of L4 on L5 and grade 1 anterolisthesis of L5 on S1. IMPRESSION: 1. The gallbladder is hydropic. There is radiopaque material along the posterior gallbladder wall. This is favored to represent sludge versus small stones, though gallbladder wall calcification can botello ve a similar appearance. A dedicated right upper quadrant ultrasound may be obtained as clinically i ndicated. 2. There is a 4.5 cm simple cyst in the upper pole of the left kidney. 3. There is right middle lobe consolidation and bibasilar tree in bud opacities. Differential consid erations include infectious and inflammatory etiologies. A neoplastic process is not excluded and fo llow-up to resolution is recommended. 4. The wall of the distal esophagus is thickened, though incompletely distended. Although this could represent pseudothickening or a hiatal hernia, an inflammatory or neoplastic process could cause a s imilar appearance. Correlation with upper GI or endoscopic findings is recommended. NOTIFICATION: The above findings were phoned to Gabby Ellington on 01/15/2017 at 03:10 AM EST.
[2017-01-15 06:00] LABS: BUN/CREATININE RATIO 13.75 (6-20); CALCIUM 8.6 mg/dL (8.7-10.7)
[2017-01-15 06:53] LABS: BASOPHILS % (AUTO) 2.4 % (0-1); EOSINOPHILS # (AUTO) 0.13 10*3/UL; EOSINOPHILS % (AUTO) 3.1 % (0-8); HEMATOCRIT 34.1 % (37.0-47.0); HEMOGLOBIN 10.4 g/dL (12.0-16.0); LYMPHOCYTES # (AUTO) 1.65 10*3/uL; MEAN CORPUSCULAR HEMOGLOBIN 22.6 PG (27-31); MEAN CORPUSCULAR HGB CONC 30.5 g/dL (33-37); MEAN CORPUSCULAR VOLUME 74 FL (81-99); MEAN PLATELET VOLUME 9.3 FL (7.4-12.2); MONOCYTES # (AUTO) 0.41 10*3/UL (0.3-0.8); MONOCYTES % (AUTO) 9.7 % (5-15); NEUTROPHILS # (AUTO) 1.95 10*3/UL; NEUTROPHILS % (AUTO) 45.9 % (50-80); RED BLOOD COUNT 4.61 10^6/uL (4.20-5.40)
[2017-01-15 06:54] LABS: PLATELET MORPHOLOGY COMMENT NORMAL MORPHOLOGY (NORM); WBC MORPHOLOGY COMMENT SEE COMMENTS (NORM)
[2017-01-15 06:55] LABS: RBC MORPHOLOGY COMMENT SEE COMMENTS (NORM)
[2017-01-15] MEDS: oxyCODONE IR Tab 5 MG TAB PO PRN ×3 (08:03→22:22)
[2017-01-15] MEDS: DOCUSATE 100 MG CAPSULE PO SCH (08:08)
[2017-01-15] MEDS: Calcium/Vit D 600mg/400u Tab 1 TAB TABLET PO SCH ×2 (08:08→21:20)
[2017-01-15] MEDS: Phenazopyridine Tab 100 MG TAB PO SCH (08:08)
[2017-01-15] MEDS: Multivitamin Tab 1 TAB PO SCH (08:08)
[2017-01-15] MEDS: Beta Carot W/Vit E,C,Min Tab 1 TAB TAB PO SCH (08:08)
[2017-01-15] MEDS ORDERED: LIDOCAINE 700 MG PATCH TOPICAL SCH (09:00)
[2017-01-15] MEDS ORDERED: OMEPRAZOLE 20 MG CAPSULE PO SCH (09:00)
[2017-01-15] MEDS ORDERED: CHROMIUM PICOLINATE PO SCH (09:00)
[2017-01-15] MEDS ORDERED: ENOXAPARIN SODIUM 40 MG/0.4 ML SYRINGE SUBCUT SCH (09:00)
[2017-01-15] MEDS ORDERED: INULIN PO SCH (09:00)
[2017-01-15] MEDS: Sodium Chloride 0.9% 1,000 ML PRIMARY IV SCH ×3 (09:27→18:43)
[2017-01-15] MEDS ORDERED: LIDOCAINE 700 MG PATCH TOPICAL PRN (11:21)
[2017-01-15] MEDS: Pantoprazole Inj 40 MG in Normal Saline Flush 10 ML IVP SCH ×2 (12:11→22:43)
--- NOTE | 2017-01-15 14:53 | OTI REPORT ---
Thank you for the referral of Cristela Blanca. She was seen on 01/15/17 for an occupational therapy inpatient evaluation secondary to weakness. SUBJECTIVE: The patient is an 81-year-old female. The patient reports she is feeling better this morning than she has felt. The patient was in the hospital recently for the same diagnosis and was discharged on 01/07/17. The patient reports back pain and head pain; although pain is better due to medication. The patient reports that she has a band master, sock aide, and toilet tongs at home that she was issued during her last inpatient stay. The patient lives alone at [facility]; although she does have support from family close by. The patient reports following the last discharge, she had her daughter stay with her and she was making improvements and feeling fine; however, after her daughter left she started to feel more weakness and is concerned about incontinence of bowels. The patient lives on the third floor but does have access to an elevator. The patient is not currently driving. The bathroom set up includes a walk in shower with a built in shower chair. The patient sleeps in a standard bed and uses a four wheeled walker for mobility within the home and outside of the home. Per patient report, she is independent with simple ADLs. She is able to complete laundry herself. She does not complete much cooking and receives meals on wheels for lunch time meal. The patient is also provided with meals from family living nearby. She is able to clean the apartment herself. She reports getting groceries herself; however, she needs assistance to get to the grocery store. The patient reports this is the hardest task for her as she gets tired and demonstrates weakness. The patient reports poor vision with a history of macular degeneration, glaucoma, and cataracts as well as arthritis in the hands and shoulders bilaterally. PAST MEDICAL HISTORY: Past medical history can be found in the patient's medical record. OBJECTIVE FINDINGS: Transfers: The patient demonstrates the ability to perform sit to stand transfers with min assist safely with use of four wheeled walker. Range of motion: The patient's upper extremity range of motion for the left upper extremity is 75% of functional limits. Right range of motion is severely limited due to arthritis and pain with approximately 90 degrees of shoulder flexion and abduction. The patient is unable to perform horizontal abduction with the right shoulder which is necessary for dressing tasks. Strength: The patient demonstrates upper extremity strength of 3+/5 bilaterally for shoulders, elbows, wrists, and hands. Activities of daily living: The patient demonstrated the ability to don and doff socks with a leg crossing technique with both lower extremities; however, the patient does report some pain in the shoulder and low back while donning socks and therefore she uses a sock aide at home. Endurance: The patient is able to complete activities for 3-4 minutes before becoming short of breath and needing to take a rest break. ASSESSMENT: Problem List: Decreased activity tolerance Generalized weakness Upper extremity weakness Decreased range of motion and mobility in upper extremities necessary for dressing tasks and toileting Short-Term Goals: To be met by discharge from inpatient: Patient will increase activity tolerance in order to perform 10+ minutes of continuous activity during ADLs. Patient will be able to complete lower extremity dressing with use of band master for modified independence. Patient will be able to complete all upper extremity dressing independently or with modified independence for extra time. Patient will be able to complete toileting tasks to include safe toilet transfers and toilet hygiene with the use of adaptive equipment as needed independently. Patient will increase upper extremity strength to 4+/5. Long-Term Goals: To be met following discharge from inpatient: Patient will be able to return home with adaptive equipment and be able to perform all ADLs independently. TREATMENT PLAN: Patient will be seen B.I.D during the week and one time per day over the weekend as an inpatient to increase activity tolerance and strength. INITIAL TREATMENT: Treatment today consisted of the initial evaluation followed by functional activities including sit to stand transfers, ambulation with use of four wheeled walker, and donning and doffing socks. ASHOK
--- NOTE | 2017-01-15 14:54 | CONSULT ---
Consult Note - Consult Consult Date: 01/15/17 Reason for Consult: PreOp Consulation : General Surgery Requesting Physician: Dr. Wallace Primary Care Provider: Nu Clark MD - History of Present Illness History of Present Illness: Patient is an 81-year-old female I'm asked to see in consultation. She was actually admitted several weeks ago with rigors and chills and findings of a right lower lobe pneumonia and a urinary tract infection. She was anemic with a hemoglobin of 7.9 and a hematocrit of 27.1. In September 2015 her hemoglobin was 14.2 and her hematocrit was 43.8. She had no evidence of bleeding. She had a history of Gutierrez's esophagus. She was felt to be unstable enough to do anything at that time so she was set up with an outpatient appointment. She is actually supposed to see me next Wednesday. She was readmitted yesterday with weakness and fatigue. She did get 2 units of blood her last admission. Her hemoglobin was 12.1 and her hematocrit was 38.7 yesterday. Today she is 10.4 and 34.1. She has been passing some dark black tarry stools. She has had some incontinence of her stools. I was asked by Dr. Wallace to see her and consider upper and lower endoscopy while she is hospitalized. She denies abdominal pain. She denies reflux. Her stool was Hemoccult positive in the emergency room. Patient reports her last upper and lower endoscopy were several years ago. She does not know the date. She's had multiple upper endoscopies and multiple colonoscopies. Again she has a history of Gutierrez's esophagus. CT scan done admission showed possible thickening versus contraction in her distal esophagus. It appears she has a small hiatal hernia. Regarding her colonoscopies he only abnormality was a finding of a 7 mm polyp in the past. Review of Systems - Constitutional Constitutional: REPORTS: Fatigue, Malaise, Weakness, See HPI - Gastrointestinal Gastrointestinal / Abdominal: REPORTS: Melena, See HPI. DENIES: Negative System Review, Nausea, Vomiting, Diarrhea, Constipation, Abdominal Pain, Bloody Stool, Poor Appetite, Heartburn, Regurgitation, Bloating, Lactose Intolerance, Bright Red Blood Per Rectum, Other Past Medical History Medical History: 1. GERD-with Gutierrez's esophagus. 2. Osteoporosis. 3. Lumbar spondylosis. 4. Osteoarthritis. 5. Hx of hyperlipidemia. 6. Gutierrez's esophagitis. 7. macular degeneration. 8. chronic interstitial cystitis with recurrent UTI's. 9. Anemia. 10. History of colon polyps Surgical History: 1. colonoscopies and EGD's-multiple of each.. most recent colonoscopy had a tubular adenoma in 2009. Patient reports she had an upper endoscopy and lower endoscopy within the last 3 years. 2. left knee surgery. 3. spinal stimulator with subsequent removal ( this was a stimulator electrode test. patient then had a blood patch). 4. hand surgery. Family History: Reviewed an Not Pertinent Pertinent Family History: significant for heart disease in her father Past Social History: quit smoking in the , no alcohol, has children that are healthy. ambulates with walker and lives independently in the [facility]. Tobacco Use: Former Smoker Substance Use Type: None Alcohol Use: None Medication / Allergies Home Medications: Home Medications Medication Instructions Recorded Confirmed Type Vit C/Vit E Acetate/Lutein/Min 1 each PO DAILY 12/19/10 01/14/17 History [Ocuvite Lutein Capsule] Calcium Carbonate/Vitamin D3 1 cap PO BID #60 tab 09/28/12 01/14/17 Clinic [Calcium 600 + Vit D 400 Caplet] Aspirin/Acetaminophen/Caffeine 1 tab PO PRN tab 01/16/13 01/14/17 History [Excedrin Migraine Tablet] Travoprost (Benzalkonium) 1 drop EACH EYE HS drop 01/16/13 01/14/17 History [Travatan 0.004% Eye Drop] Phenazopyridine HCl [Pyridium] 100 mg PO QD tab 04/26/14 01/14/17 History SUMAtriptan Inj [Imitrex Inj] 6 mg SUBCUT ONCE #1 ml 08/26/15 01/14/17 Clinic Docusate Sodium [Stool Softener] 100 mg PO DAILY tab 11/05/15 01/14/17 History Inulin/Chromium Picolinate [Fiber 1 each PO DAILY tab 11/05/15 01/14/17 History Gummies] Multivitamin [Daily Olinda] 1 tab PO DAILY tab 11/05/15 01/14/17 History Alendronate Sodium 1 tab-cap PO WEEKLY #12 tab 02/10/16 01/14/17 Clinic Triamcinolone Acetonide 30 gm TOPICAL QD #1 tube 05/25/16 01/14/17 Clinic Omeprazole 1 tab-cap PO DAILY #90 tab-cap 06/23/16 01/14/17 Clinic Lidocaine 1 patch TRANSDERM daily/prn #30 08/05/16 01/14/17 Clinic patch Gabapentin 2 tab-cap PO QHS #180 tab-cap 09/23/16 01/14/17 Clinic Triazolam [Halcion] 1 tab-cap ORAL QHS PRN #30 tab-cap 12/17/16 01/14/17 Clinic Potassium Chloride [Klor-Con] 10 meq PO DAILY #5 tab 01/07/17 01/14/17 Rx oxyCODONE IR Tab [OxyIR Tab] 10 mg PO QID PRN #40 tab 01/07/17 01/14/17 Rx Allergies/Adverse Reactions: Allergies Allergy/AdvReac Type Severity Reaction Status Date / Time codeine AdvReac NAUSEA Verified 01/14/17 18:17 Exam - Vitals Vital Signs: Vital Signs Temperature 97.8 F Temperature Source Temporal Artery Scan Pulse Rate [Pulse Oximeter] 84 Pulse Rate [Pulse Oximeter] 87 Pulse Rate 93 Respiratory Rate 18 Blood Pressure [Left Arm] 148/56 Blood Pressure 134/74 Pulse Ox 92 Oxygen Delivery Method Room Air Height 5 ft 4 in Weight 64.682 kg - General General Appearance: POSITIVE: No Acute Distress, Cooperative - Respiratory Respiratory Exam: POSITIVE: Clear to Auscultation - Bilaterally, Breathing Non Labored - Cardiovascular Cardiovascular Exam: POSITIVE: RRR, No Murmur - GI/Abdominal GI/Abdominal Exam: POSITIVE: Normal Bowel Sounds, Non Tender, Non Distended, Soft, No Masses, No Hepatomegaly, No Splenomegaly, No Organomegaly - Rectal Rectal Exam: POSITIVE: Deferred - Neurological Neurological Exam: POSITIVE: Alert, Oriented x 3 - Psychiatric Psychiatric Exam: POSITIVE: Normal Affect, Normal Mood Results - Labs CBC and BMP: 01/15/17 05:46 01/15/17 05:46 Labs - Last 24 Hours: Laboratory Results 01/15/17 Range/Units 05:46 WBC 4.24 L (4.8-10.8) 10^3/uL RBC 4.61 (4.20-5.40) 10^6/uL Hgb 10.4 L (12.0-16.0) g/dL Hct 34.1 L (37.0-47.0) % MCV 74 L (81-99) FL MCH 22.6 L (27-31) PG MCHC 30.5 L (33-37) g/dL RDW Std Deviation 66.8 H (39-50) fL RDW Coeff of Abdulaziz 26.2 H (11.5-14.5) % Plt Count 446 H (140-350) 10*3/uL MPV 9.3 (7.4-12.2) FL Immature Gran % (Auto) 0 (0-5) % Neut % (Auto) 45.9 L (50-80) % Lymph % (Auto) 38.9 (10-50) % Heard % (Auto) 9.7 (5-15) % Eos % (Auto) 3.1 (0-8) % Baso % (Auto) 2.4 H (0-1) % Immature Gran # (Auto) 0 10*3/UL Neut # (Auto) 1.95 10*3/UL Lymph # (Auto) 1.65 10*3/uL Heard # (Auto) 0.41 (0.3-0.8) 10*3/UL Eos # (Auto) 0.13 10*3/UL Baso # (Auto) 0.10 10*3/UL WBC Morphology Comment See comments (NORM) Plt Morphology Comment Normal morphology (NORM) RBC Morph Comment See comments (NORM) Sodium 138 (135-145) meq/L Potassium 4.0 (3.8-5.2) meq/L Chloride 106 (98-112) meq/L Carbon Dioxide 25 (23-33) meq/L Anion Gap 7 (5-20) BUN 11 (7-22) mg/dL Creatinine 0.8 (0.50-1.20) mg/dL Estimated GFR (>60 ml/min/1.73m(2)) BUN/Creatinine Ratio 13.75 (6-20) Glucose 86 (78-110) mg/dL Calculated Osmolality 283.0 (267-292) mOsm/kg Calcium 8.6 L (8.7-10.7) mg/dL - Imaging Status: Image Reviewed by Me, Report Reviewed by Me Assessment and Plan - Patient Problems (1) GI bleed Current Visit: Yes Status: Acute Priority: High Comment: No evidence of active bleeding. Significant blood loss in the last year. We will proceed with upper and lower endoscopy this admission.The procedure has been discussed with the patient in complete yet simple terms including benefits, risks, and alternatives. All questions have been answered. Informed consent has been obtained. Qualifiers: GI bleed type/associated pathology: unspecified gastrointestinal hemorrhage type Qualified Description: Gastrointestinal hemorrhage, unspecified gastrointestinal hemorrhage type (2) Macrocytic anemia Current Visit: No Status: Chronic Priority: Low (3) Personal history of colonic polyps Current Visit: Yes Status: Chronic Priority: Low (4) Barretts esophagus Current Visit: Yes Status: Chronic Priority: Low
[2017-01-15] MEDS ORDERED: SUPREP BOWEL PREP KIT PO ONE (15:01)
[2017-01-15] MEDS ORDERED: NORMAL SALINE 10 ML SYRINGE FLUSH IVP PRN (15:08)
[2017-01-15] MEDS ORDERED: LIDOCAINE W/ SODIUM BICARB 0.5 ML SYR SUBD PRN (15:08)
--- NOTE | 2017-01-15 15:55 | PTI REPORT ---
Thank you for the referral of Cristela Blanca. She was seen on 01/15/17 for an inpatient evaluation secondary to weakness. SUBJECTIVE: The patient is an 81-year-old female who presents to the hospital with increased bowel difficulty and generalized weakness. The patient's daughter is present for our therapy evaluation and does provide some history in conjunction with the patient. The patient's daughter states that the patient was recently hospitalized on the of last month due to similar issues. The patient states that she spent four days in the ICU at that time and a few other days in the hospital wing before she returned back home. She states that she was doing fairly well following discharge and did great for a couple of days but then began having increased difficulty which brought her back to the hospital. The patient states that she lives over at [employer] and she does live alone. She states that she is independent with ADLs but does require some assistance with iADLs. She states her daughter does work at [employer] and does look after her with activities that she does need some assistance with. The patient states that she typically ambulates with a four wheeled walker and does well with this. The patient states that she had a left total knee replacement about 17 years ago and she has always had difficulties with that knee which does limit some of her mobility, especially with stairs. She states when she is feeling better she does try to practice some stairs where she lives, but lately she has been taking the elevator to and from her apartment. PAST MEDICAL HISTORY: Past medical history can be found in the patient's medical record. OBJECTIVE FINDINGS: General observations: The patient is alert and oriented to setting upon PT arrival. The patient was sitting up in her chair, she had just finished eating breakfast. Strength: Right lower extremity strength was 4/5 and left lower extremity strength was 3/5 tested in a seated position. The patient did have some difficulties lifting the left lower extremity and kicking it out due to her left total knee. Transfers: The patient was able to move from a seated to standing position with contact guard assist x1 for safety. The patient denied any lightheadedness or dizziness when she was standing up. The patient was able to perform a standing to seated transfer into her chair and she did well with that. She did seem a little short of breath. Pain: The patient does state that she has back pain. She did receive a Hydrocodone before therapy which does help alleviate some of her pain, but her daughter states that she does have osteoporosis and scoliosis, so she has a difficult time standing for long periods of time. Ambulation: With hand hold assist x2 on her four wheeled walker, she was able to stand x1 minute and then ambulate x150 feet around the nurse's station with contact guard assist x1 for safety. Vitals: We did measure her oxygen saturation and she was at 91% so we instructed her on proper breathing techniques as she is generally a really shallow breather so she gets easily fatigued with activity. With diaphragmatic breathing techniques the patient did improve her oxygen saturation. ASSESSMENT: The patient has fair rehab potential due to her past medically history and her age. Problem List: Decreased endurance/activity tolerance Generalized weakness Short-Term Goals: To be met by discharge from inpatient: Patient will be independent and safe with bed to stand transfers. Patient will be able to ambulate at least 150 feet safely and independently with four wheeled walker. Patient will be able to tolerate at least 30 minutes of therapeutic activity. Long-Term Goals: To be met following discharge from inpatient: Patient may be seen by outpatient physical therapy if there is any residual weakness or difficulties with activities upon discharge from the hospital. TREATMENT PLAN: Patient will be seen B.I.D during the week and one time per day over the weekend as an inpatient to work on independence and safety with transfers and ambulation as well as generalized strengthening and balance activities to improve her overall endurance and activity tolerance. INITIAL TREATMENT: Treatment today consisted of the initial evaluation. Upon returning to her room , the patient's alarm was placed on her in the chair and call light was left within reach. The patient was left sitting up in chair with daughter present in room. ASHOK
--- NOTE | 2017-01-15 16:33 | PT.PROG ---
Progress Note Progress Note: S. Patient stated that she is very tired this afternoon and she is feeling very weak. O. Patient performed seated exercises in the form of; long arc quads, heel toe raises, marches, ball squeezes, resisted knee flexion, clam shells, and sit to stands all x 10. Patient was left in chair with alarm and call light. A. Patient tolerated exercises well, she was very tired after exercise and was not willing to go for a walk. Patient would continue to benefit from skilled therapy to increase strength, mobility and endurance. P. Continue POC.
--- NOTE | 2017-01-15 16:42 | OT.PROG ---
Progress Note Progress Note: S: Pt reports feeling pretty well this afternoon with minimal complaints of pain. O: Pt was seen from 13:30 to 13:55 for skilled occupational therapy session with a focus on UE ROM and strengthening. Pt completed toileting task with modified independence for transfers with the use of 4WW and grab bars and completed toilet hygiene task with set up assistance. Pt then completed the following UE strengthening with RTB: shoulder flexion 2 X 10, biceps X 10, triceps X 10, shoulder retraction X 10, and IR/ER X 10. Pt did require short rest breaks between each exercise. Due to R shoulder pain, pt only completed shoulder flexion tasks without resistance. Therapy session was ended due to pt' s appointment with radiology. A: Pt did well with therapeutic exercise, however did become fatigued with UE exercises. Pt continued to benefit from skilled therapy to increase overall independence, generalized strengthening, and reduce pain in order to return home safely. P: Continue POC. BLACK Mack/Trice
[2017-01-15] MEDS: cefTRIAXone Inj 2 GM in Sodium Chloride 0.9% 100 ML IV SCH (19:05)
--- NOTE | 2017-01-15 19:33 | PDOC(PROG) ---
Date and Time of Service: 01/15/2017, 1927 Interval History: patient seen and evaluated earlier today with her daughter present at bedside. no chest pain, no nausea and no vomiting. fecal incontinence improved some stool work up for infection is negative. was on PO iron. also on PPI. Objective : Data - Labs CBC and BMP: 01/15/17 05:46 01/15/17 05:46 Labs - Last 24 Hours: Laboratory Results 01/14/17 01/15/17 Range/Units 20:39 05:46 WBC 4.24 L (4.8-10.8) 10^3/uL RBC 4.61 (4.20-5.40) 10^6/uL Hgb 10.4 L (12.0-16.0) g/dL Hct 34.1 L (37.0-47.0) % MCV 74 L (81-99) FL MCH 22.6 L (27-31) PG MCHC 30.5 L (33-37) g/dL RDW Std Deviation 66.8 H (39-50) fL RDW Coeff of Abdulaziz 26.2 H (11.5-14.5) % Plt Count 446 H (140-350) 10*3/uL MPV 9.3 (7.4-12.2) FL Immature Gran % (Auto) 0 (0-5) % Neut % (Auto) 45.9 L (50-80) % Lymph % (Auto) 38.9 (10-50) % [place] % (Auto) 9.7 (5-15) % Eos % (Auto) 3.1 (0-8) % Baso % (Auto) 2.4 H (0-1) % Immature Gran # (Auto) 0 10*3/UL Neut # (Auto) 1.95 10*3/UL Lymph # (Auto) 1.65 10*3/uL [place] # (Auto) 0.41 (0.3-0.8) 10*3/UL Eos # (Auto) 0.13 10*3/UL Baso # (Auto) 0.10 10*3/UL WBC Morphology Comment See comments (NORM) Plt Morphology Comment Normal morphology (NORM) RBC Morph Comment See comments (NORM) Sodium 138 (135-145) meq/L Potassium 4.0 (3.8-5.2) meq/L Chloride 106 (98-112) meq/L Carbon Dioxide 25 (23-33) meq/L Anion Gap 7 (5-20) BUN 11 (7-22) mg/dL Creatinine 0.8 (0.50-1.20) mg/dL Estimated GFR (>60 ml/min/1.73m(2)) BUN/Creatinine Ratio 13.75 (6-20) Glucose 86 (78-110) mg/dL Calculated Osmolality 283.0 (267-292) mOsm/kg Calcium 8.6 L (8.7-10.7) mg/dL Stool Occult Blood Cancelled Objective : Exam - General General Appearance: No Acute Distress, Cooperative Additional General Exam Details: Vital Signs - Last Taken Temperature 98.1 F 01/15/17 17:00 Pulse Rate 92 01/15/17 17:00 Respiratory Rate 20 01/15/17 17:00 Blood Pressure 114/76 01/15/17 17:00 Pulse Ox 90 01/15/17 17:00 - Respiratory Respiratory Exam: Clear to Auscultation - Bilaterally, Breathing Non Labored - Cardiovascular Cardiovascular Exam: RRR, No Murmur, No Clicks, No Gallops, No Rubs, No JVD - GI/Abdominal GI/Abdominal Exam: Normal Bowel Sounds, Non Tender, Non Distended, Soft - Extremities Extremities Exam: No Clubbing Present, No Edema Present, No Cyanosis Present - Neurological Neurological Exam: Alert, Oriented x 3, No Facial Droop, Speech Intact / Clear, Moves All Extremities Equally Assessment and Plan - Patient Problems (1) GI bleed Current Visit: Yes Status: Acute Priority: High Qualifiers: GI bleed type/associated pathology: unspecified gastrointestinal hemorrhage type Qualified Description: Gastrointestinal hemorrhage, unspecified gastrointestinal hemorrhage type Qualifier Code(s): (K92.2) Gastrointestinal hemorrhage, unspecified (2) Fecal incontinence Current Visit: Yes Status: Acute Qualifiers: Fecal incontinence type: unspecified Qualified Description: Incontinence of feces, unspecified fecal incontinence type Qualifier Code( s): (R15.9) Full incontinence of feces (3) UTI (urinary tract infection) Current Visit: Yes Status: Acute Qualifiers: Urinary tract infection type: acute cystitis Hematuria presence: with hematuria Qualified Description: Acute cystitis with hematuria Qualifier Code(s): (N30.01) Acute cystitis with hematuria (4) Chronic pain syndrome Current Visit: Yes Status: Acute (5) GERD (gastroesophageal reflux disease) Current Visit: Yes Status: Acute Qualifiers: Esophagitis presence: with esophagitis Qualified Description: Gastroesophageal reflux disease with esophagitis Qualifier Code(s): (K21.0 ) Gastro-esophageal reflux disease with esophagitis (6) Macular degeneration Current Visit: Yes Status: Chronic (7) Generalized weakness Current Visit: Yes Status: Acute (8) Iron deficiency anemia due to chronic blood loss Current Visit: Yes Status: Acute - Assessment / Plan Additional Assessment/Plan Details: appreciate surgery consultation and EGD, colonoscopy which may happen tomorrow check labs in AM we discussed back... has severe lumbar spinal stenosis and spondylosis. would not necessarily opt for surgery. may consider doing lumbar MRI as outpatient only if the patient plans to proceed with surgery or steroid injection for pain control. continue off aspirin PPI BID no evidence of UTI--culture is negative thus far. stop rocephin. findings probably consistent with interstitial cystitis.
[2017-01-15] MEDS: OMEPRAZOLE 20 MG PO SCH (21:21)
[2017-01-15] MEDS: GABAPENTIN 300 MG PO SCH (21:21)
[2017-01-15] MEDS: Patch Removal PATCH TRANSDERM SCH (21:28)
[2017-01-15] MEDS: TRAVOPROST EACH EYE SCH (21:29)
[2017-01-15] MEDS: TRIAZOLAM 0.25 MG ORAL PRN (22:22)
[2017-01-15] MEDS: Lactated Ringers 1,000 ML PRIMARY IV SCH (23:56)
[2017-01-16 05:35] LABS: BUN/CREATININE RATIO 11.25 (6-20); CALCIUM 8.5 mg/dL (8.7-10.7)
[2017-01-16 06:59] LABS: HEMATOCRIT 33.3 % (37.0-47.0); HEMOGLOBIN 10.3 g/dL (12.0-16.0); MEAN CORPUSCULAR HEMOGLOBIN 23.1 PG (27-31); MEAN CORPUSCULAR HGB CONC 30.9 g/dL (33-37); MEAN CORPUSCULAR VOLUME 74.7 FL (81-99); MEAN PLATELET VOLUME 10.3 FL (7.4-12.2); RED BLOOD COUNT 4.46 10^6/uL (4.20-5.40)
[2017-01-16 07:00] LABS: BASOPHILS # (AUTO) 0.14 10*3/UL; BASOPHILS % (AUTO) 2.9 % (0-1); EOSINOPHILS # (AUTO) 0.12 10*3/UL; EOSINOPHILS % (AUTO) 2.5 % (0-8); LYMPHOCYTES # (AUTO) 1.64 10*3/uL; MONOCYTES # (AUTO) 0.55 10*3/UL (0.3-0.8); MONOCYTES % (AUTO) 11.3 % (5-15); NEUTROPHILS # (AUTO) 2.41 10*3/UL; NEUTROPHILS % (AUTO) 49.4 % (50-80); PLATELET MORPHOLOGY COMMENT NORMAL MORPHOLOGY (NORM); WBC MORPHOLOGY COMMENT NORMAL MORPHOLOGY (NORM)
[2017-01-16 07:01] LABS: RBC MORPHOLOGY COMMENT SEE COMMENTS (NORM)
--- NOTE | 2017-01-16 10:08 | GEN.OPNOTE ---
EGD / Colonoscopy Report Surgery Date: 01/16/17 Preoperative Diagnosis: History of Gutierrez's esophagitis, GI bleed, Hemoccult positive stool, anemia. Postoperative Diagnosis: Same. Procedure: #1 esophagogastroduodenoscopy with biopsy. #2 complete colonoscopy. Surgeon: Rupert Triplett MD Anesthesia Provider: Cristiana Christine CRNA Anesthesia Type: MAC Indications: See preoperative diagnosis. EGD Findings: Esophagus: [Normal] GE Junction : [Small hiatal hernia. Slight irregularity of the Z line. No obvious Gutierrez's change. Minimal inflammation.] Fundus : [Normal] Body : [Normal] Prepyloric : [Mild erythema. Pylorus was tight. Scope was passed through into the duodenum.] Small Intestine : [Duodenum and duodenal bulb were unremarkable.] A lubricated flexible upper endoscope was inserted and passed through the esophagus and stomach into the duodenum. The duodenum and duodenal bulb were unremarkable. The pyloric channel was slightly tight but the scope was passed through it. There may be some chronic scar tissue. There is some mild erythema in the antrum. Multiple biopsies were taken. Hemostasis was assured. The scope was retroflexed. There is a small roughly 5 or 6 cm hiatal hernia. The scope was straightened. Air was aspirated. The scope was withdrawn into the distal esophagus. There is some slight irregularity at the Z line but no obvious Gutierrez's change or significant inflammation. Multiple biopsies were taken at and above the Z line. Hemostasis was assured. The scope was withdrawn through the remainder of a normal-appearing esophagus and brought through the hypopharynx under suction. Colonoscopy Findings: Prep : [Excellent] Cecum : [Normal] Ascending : [Normal] Transverse : [Normal] Sigmoid : [Normal with a few scattered diverticuli] Rectum : [Normal] Digital Rectal Exam : [Decreased rectal tone. No significant pathology] A lubricated flexible colonoscope was inserted and passed to the blind end of the cecum. The appendiceal orifice and ileocecal valve were clearly seen. I attempted to intubate the ileum multiple times and was unsuccessful. I could see the distal inch of ileum mucosa and it was unremarkable. There is no evidence of blood coming from the ileocecal valve. Air was aspirated as the scope was withdrawn. The entire colonoscopy was normal without polyp, tumor, neoplastic mass, infectious or inflammatory process. There was a few scattered diverticuli otherwise was a completely normal exam. The scope was withdrawn completing the procedure. Patient tolerated all aspects of the procedure well without complication. She' ll be taken back to the medical surgical unit in stable condition. Follow-up will be with my office on an as-needed basis. Recommend continue her proton pump inhibitor. No evidence of active bleeding at this time. Actually there is no evidence of active bleeding since her last admission. Her blood loss over the last year is of unknown etiology.
[2017-01-16] MEDS: oxyCODONE IR Tab 5 MG TAB PO PRN ×2 (10:54→19:49)
[2017-01-16] MEDS: Multivitamin Tab 1 TAB PO SCH (10:56)
[2017-01-16] MEDS: DOCUSATE 100 MG CAPSULE PO SCH (10:56)
[2017-01-16] MEDS: Phenazopyridine Tab 100 MG TAB PO SCH (10:56)
[2017-01-16] MEDS: Calcium/Vit D 600mg/400u Tab 1 TAB TABLET PO SCH ×2 (10:56→21:43)
[2017-01-16] MEDS: Beta Carot W/Vit E,C,Min Tab 1 TAB TAB PO SCH (10:56)
[2017-01-16] MEDS: Pantoprazole Inj 40 MG in Normal Saline Flush 10 ML IVP SCH ×2 (10:56→21:55)
[2017-01-16] MEDS ORDERED: Iron Sucrose Inj 500 MG in Sodium Chloride 0.9% 250 ML IV ONE ×2 (12:30→17:00)
[2017-01-16] MEDS ORDERED: METHYLPREDNISOLONE 4 MG TAB DOSE PACK PO SCH ×2 (13:31→15:16)
[2017-01-16] MEDS ORDERED: METHYLPREDNISOLONE 4 MG TAB DOSE PACK PO ONE (14:51)
--- NOTE | 2017-01-16 15:10 | PDOC(PROG) ---
Date and Time of Service: 2016, 1509 Interval History: No completes of chest pain or shortness of breath. Feeling a little groggy post -EGD and colonoscopy. Some thickening in the portion of the duodenum and my discussion with surgery, but otherwise negative upper and lower endoscopy studies. Patient complains of back pain, persistent. She complains of bilateral hip pain. The patient's clear she does not want any procedures done on her lumbar spine or back surgeries. We may just defer MRI to outpatient workup. Objective : Data - Labs CBC and BMP: 01/16/17 04:50 01/16/17 04:50 Labs - Last 24 Hours: Laboratory Results 01/14/17 01/16/17 Range/Units 20:39 04:50 WBC 4.87 (4.8-10.8) 10^3/uL RBC 4.46 (4.20-5.40) 10^6/uL Hgb 10.3 L (12.0-16.0) g/dL Hct 33.3 L (37.0-47.0) % MCV 74.7 L (81-99) FL MCH 23.1 L (27-31) PG MCHC 30.9 L (33-37) g/dL RDW Std Deviation 67.4 H (39-50) fL RDW Coeff of Abdulaziz 26.3 H (11.5-14.5) % Plt Count 311 (140-350) 10*3/uL MPV 10.3 (7.4-12.2) FL Immature Gran % (Auto) 0.2 (0-5) % Neut % (Auto) 49.4 L (50-80) % Lymph % (Auto) 33.7 (10-50) % [place] % (Auto) 11.3 (5-15) % Eos % (Auto) 2.5 (0-8) % Baso % (Auto) 2.9 H (0-1) % Immature Gran # (Auto) 0.01 10*3/UL Neut # (Auto) 2.41 10*3/UL Lymph # (Auto) 1.64 10*3/uL [place] # (Auto) 0.55 (0.3-0.8) 10*3/UL Eos # (Auto) 0.12 10*3/UL Baso # (Auto) 0.14 10*3/UL WBC Morphology Comment Normal morphology (NORM) Plt Morphology Comment Normal morphology (NORM) RBC Morph Comment See comments (NORM) Sodium 141 (135-145) meq/L Potassium 4.4 (3.8-5.2) meq/L Chloride 110 (98-112) meq/L Carbon Dioxide 24 (23-33) meq/L Anion Gap 7 (5-20) BUN 9 (7-22) mg/dL Creatinine 0.8 (0.50-1.20) mg/dL Estimated GFR (>60 ml/min/1.73m(2)) BUN/Creatinine Ratio 11.25 (6-20) Glucose 75 L (78-110) mg/dL Calculated Osmolality 289.0 (267-292) mOsm/kg Calcium 8.5 L (8.7-10.7) mg/dL Stool Occult Blood Cancelled Objective : Exam - General General Appearance: No Acute Distress, Cooperative Additional General Exam Details: Vital Signs - Last Taken Temperature 99.1 F 01/16/17 11:00 Pulse Rate 90 01/16/17 11:00 Respiratory Rate 20 01/16/17 11:00 Blood Pressure 136/55 01/16/17 11:00 Pulse Ox 90 01/16/17 11:00 - Eye Eye Exam: No Scleral Icterus - Respiratory Respiratory Exam: Clear to Auscultation - Bilaterally, Breathing Non Labored - Cardiovascular Cardiovascular Exam: RRR, No Murmur, No Clicks, No Gallops, No Rubs, No JVD - GI/Abdominal GI/Abdominal Exam: Normal Bowel Sounds, Non Tender, Non Distended, Soft - Extremities Extremities Exam: No Clubbing Present, No Edema Present, No Cyanosis Present - Neurological Neurological Exam: Alert, Oriented x 3, No Facial Droop, Speech Intact / Clear, Moves All Extremities Equally Assessment and Plan - Patient Problems (1) Generalized weakness Current Visit: Yes Status: Acute (2) Fecal incontinence Current Visit: Yes Status: Resolved Qualifiers: Fecal incontinence type: unspecified Qualified Description: Incontinence of feces, unspecified fecal incontinence type Qualifier Code( s): (R15.9) Full incontinence of feces (3) UTI (urinary tract infection) Current Visit: Yes Status: Acute Qualifiers: Urinary tract infection type: acute cystitis Hematuria presence: with hematuria Qualified Description: Acute cystitis with hematuria Qualifier Code(s): (N30.01) Acute cystitis with hematuria (4) Chronic pain syndrome Current Visit: Yes Status: Acute (5) GERD (gastroesophageal reflux disease) Current Visit: Yes Status: Acute Qualifiers: Esophagitis presence: with esophagitis Qualified Description: Gastroesophageal reflux disease with esophagitis Qualifier Code(s): (K21.0 ) Gastro-esophageal reflux disease with esophagitis (6) Macular degeneration Current Visit: Yes Status: Chronic (7) Iron deficiency anemia due to chronic blood loss Current Visit: Yes Status: Acute (8) GI bleed Current Visit: Yes Status: Resolved Priority: High Qualifiers: GI bleed type/associated pathology: unspecified gastrointestinal hemorrhage type Qualified Description: Gastrointestinal hemorrhage, unspecified gastrointestinal hemorrhage type Qualifier Code(s): (K92.2) Gastrointestinal hemorrhage, unspecified (9) Lumbar spinal stenosis Current Visit: Yes Status: Acute - Assessment / Plan Additional Assessment/Plan Details: advance diet IV iron for iron deficiency (did not tolerate PO iron) check labs in AM get pelvic X-ray to look at hips which patient complained of pain today may need PT and OT outpatient? possible MRI of lumbar spine as outpatient, may defer to primary doctor. continue protonix stop aspirin and excedrin.
[2017-01-16] MEDS: Lactated Ringers 1,000 ML PRIMARY IV SCH (16:31)
[2017-01-16] MEDS: TRIAZOLAM 0.25 MG ORAL PRN (21:43)
[2017-01-16] MEDS: GABAPENTIN 300 MG PO SCH (21:43)
[2017-01-16] MEDS: OMEPRAZOLE 20 MG PO SCH (22:37)
[2017-01-16] MEDS: TRAVOPROST EACH EYE SCH (22:37)
[2017-01-16] MEDS: Patch Removal PATCH TRANSDERM SCH (22:37)
[2017-01-17 05:47] LABS: HEMATOCRIT 32.7 % (37.0-47.0); MEAN CORPUSCULAR HEMOGLOBIN 22.8 PG (27-31); MEAN CORPUSCULAR HGB CONC 30.6 g/dL (33-37); MEAN CORPUSCULAR VOLUME 74.5 FL (81-99); RED BLOOD COUNT 4.39 10^6/uL (4.20-5.40)
[2017-01-17] MEDS: Beta Carot W/Vit E,C,Min Tab 1 TAB TAB PO SCH (08:25)
[2017-01-17] MEDS: Phenazopyridine Tab 100 MG TAB PO SCH (08:26)
[2017-01-17] MEDS: Calcium/Vit D 600mg/400u Tab 1 TAB TABLET PO SCH (08:26)
[2017-01-17] MEDS: Multivitamin Tab 1 TAB PO SCH (08:27)
[2017-01-17] MEDS: DOCUSATE 100 MG CAPSULE PO SCH (08:27)
[2017-01-17] MEDS: Pantoprazole Inj 40 MG in Normal Saline Flush 10 ML IVP SCH (08:28)
[2017-01-17] MEDS ORDERED: METHYLPREDNISOLONE 4 MG TAB DOSE PACK PO SCH (09:00)
--- NOTE | 2017-01-17 09:52 | DI ---
HISTORY: Chronic bilateral hip pain. COMPARISON: None available. FINDINGS: A single frontal radiograph of the pelvis is obtained, and demonstrates anatomic alignment without fractures. A few phleboliths are noted. Degenerative changes of the spine are seen. A non obstructive bowel gas pattern is also noted. IMPRESSION: 1. Normal bilateral hips for age. 2. Degenerative changes of the lumbar spine.
[2017-01-17] MEDS: oxyCODONE IR Tab 5 MG TAB PO PRN (09:59)
[2017-01-17 13:01] VITALS: RESP 20; TEMP 97.5
--- NOTE | 2017-01-17 17:42 | DCSUMMARY ---
Hospitalization Summary Admit Date: 01/14/17 Discharge Date: 01/17/17 Primary Diagnosis:: fecal incontinence with lumbar stenosis Hospital Course: This is a very pleasant 81-year-old female who was recently admitted with pneumonia and discharged. She was found at that time to have a hemoglobin in the sevens, she was treated with blood transfusion, proton pump inhibitor, and EGD and colonoscopy were deferred to outpatient visit. The patient re- presented with weakness and fecal incontinence. She stated she had taken iron therapy every other day and she wondered if that was the cause of some of this. She also complained of significant low back pain that seemed to be a little worse than her typical chronic pain. Through further questioning and investigation, we found that the patient had significant lumbar spondylosis and spinal stenosis. I suspect this is the cause of the fecal incontinence and it is been intermittent over the last several months per the patient as she had one episode prior several months ago. That resolved. There were no interventions for the fecal incontinence. We did do stool cultures, Giardia, Cryptosporidium, and C. difficile workup, all of which were negative. We did think that proceeding with an EGD and colonoscopy in the hospital made more sense due to the patient's weakness. She tolerated these procedures well and other than some pyloric stenosis, the EGD and colonoscopy were negative. She describes symptoms of bile on her pillow every night, so I suspect she has severe acid reflux without heartburn symptoms but no esophageal damage from that acid reflux. Biopsies are pending. I did place the patient on a Solu-Medrol Dosepak to try and help the back pain. She complains of hip pain and we image those but there was no evidence of any hip arthritis. It's all isolated to the back it appears. I do not think patient makes a great surgical candidate and she was not interested in either surgery or steroid injections at this time. Given that there were no ulcers noted, patient would like to resume her Percodan and aspirin therapy. Have no reason to withhold it although I think it could worsen her gastroesophageal reflux disease, and I think she can make her own choice as to whether to continue that or not. Patient does have some depression, but she is not at a point where she wants to go on medications. We decided at this point that we would try to increase audio books as she likes to read but cannot see due to her macular degeneration , and that I encouraged her to singthis is an activity she is enjoyed for over 60 years of her life. I don't think the patient can tolerate by mouth iron therapy. I gave her a dose of venofir, 500 mg IV 1, in order to dose for 2 weeks as an outpatient. This will complete her IV iron therapy. No complains of chest pain, shortness breath, nausea or vomiting. Assessment and Plan: 1. As per discharge assessments noted 2. Disposition: Patient is discharged home. 3. Condition on discharge, stable and improved. 4. Diet: regular diet 5. Activities: resume normal activities 6. Follow-Up: 1. Primary care provider within one week. 2. Chest x-ray in 8 weeks to ensure complete resolution of her right- sided pneumonia. 7. Medications at the Time of Discharge: Home Medications Medication Instructions Recorded Confirmed Type Vit C/Vit E Acetate/Lutein/Min 1 each PO DAILY 12/19/10 01/14/17 History [Ocuvite Lutein Capsule] Calcium Carbonate/Vitamin D3 1 cap PO BID #60 tab 09/28/12 01/14/17 Clinic [Calcium 600 + Vit D 400 Caplet] Aspirin/Acetaminophen/Caffeine 1 tab PO PRN tab 01/16/13 01/14/17 History [Excedrin Migraine Tablet] Travoprost (Benzalkonium) 1 drop EACH EYE HS drop 01/16/13 01/14/17 History [Travatan 0.004% Eye Drop] Phenazopyridine HCl [Pyridium] 100 mg PO QD tab 04/26/14 01/14/17 History SUMAtriptan Inj [Imitrex Inj] 6 mg SUBCUT ONCE #1 ml 08/26/15 01/14/17 Clinic Docusate Sodium [Stool Softener] 100 mg PO DAILY tab 11/05/15 01/14/17 History Inulin/Chromium Picolinate [Fiber 1 each PO DAILY tab 11/05/15 01/14/17 History Gummies] Multivitamin [Daily Olinda] 1 tab PO DAILY tab 11/05/15 01/14/17 History Triamcinolone Acetonide 30 gm TOPICAL QD #1 tube 05/25/16 01/14/17 Clinic Omeprazole 1 tab-cap PO DAILY #90 tab-cap 06/23/16 01/14/17 Clinic Lidocaine 1 patch TRANSDERM daily/prn #30 08/05/16 01/14/17 Clinic patch Gabapentin 2 tab-cap PO QHS #180 tab-cap 09/23/16 01/14/17 Clinic Triazolam [Halcion] 1 tab-cap ORAL QHS PRN #30 tab-cap 12/17/16 01/14/17 Clinic Potassium Chloride [Klor-Con] 10 meq PO DAILY #5 tab 01/07/17 01/14/17 Rx methylPREDNISolone Dose Pack 24 mg PO DAILY #1 vasile 01/17/17 Rx [Medrol Dose Pack] 8. Time, care, counseling and coordination of care for this discharge is greater than 30 minutes. Exam - Vitals Vital Signs: Vital Signs Temperature 97.5 F Temperature Source Temporal Artery Scan Pulse Rate [Pulse Oximeter] 84 Pulse Rate [Pulse Oximeter] 79 Pulse Rate 77 Respiratory Rate 20 Blood Pressure [Left Arm] 138/50 Blood Pressure 143/76 Pulse Ox 92 Oxygen Flow Rate 4 Oxygen Delivery Method Room Air Height 5 ft 4 in Weight 140 lb 6.4 oz - General General Appearance: POSITIVE: No Acute Distress, Cooperative - ENT ENT Exam: POSITIVE: Mucous Membranes Moist - Cardiovascular Cardiovascular Exam: POSITIVE: RRR, No Murmur, No Clicks, No Gallops, No Rubs, No JVD - GI/Abdominal GI/Abdominal Exam: POSITIVE: Normal Bowel Sounds, Non Tender, Non Distended, Soft - Extremities Extremities Exam: POSITIVE: No Clubbing Present, No Edema Present, No Cyanosis Present - Neurological Neurological Exam: POSITIVE: Alert, Oriented x 3, No Facial Droop, Speech Intact / Clear, Moves All Extremities Equally Data Perinent Studies: Laboratory Results 01/14/17 01/14/17 01/14/17 Range/Units 13:05 13:45 20:39 WBC 6.13 (4.8-10.8) 10^3/uL RBC 5.31 (4.20-5.40) 10^6/uL Hgb 12.1 (12.0-16.0) g/dL Hct 38.7 (37.0-47.0) % MCV 72.9 L (81-99) FL MCH 22.8 L (27-31) PG MCHC 31.3 L (33-37) g/dL RDW Std Deviation 66.7 H (39-50) fL RDW Coeff of Abdulaziz 26.4 H (11.5-14.5) % Plt Count 513 H (140-350) 10*3/uL MPV 9.5 (7.4-12.2) FL Immature Gran % (Auto) 0.3 (0-5) % Neut % (Auto) 64.7 (50-80) % Lymph % (Auto) 25.1 (10-50) % [place] % (Auto) 7.3 (5-15) % Eos % (Auto) 1.0 (0-8) % Baso % (Auto) 1.6 H (0-1) % Immature Gran # (Auto) 0.02 10*3/UL Neut # (Auto) 3.96 10*3/UL Lymph # (Auto) 1.54 10*3/uL [place] # (Auto) 0.45 (0.3-0.8) 10*3/UL Eos # (Auto) 0.06 10*3/UL Baso # (Auto) 0.1 10*3/UL WBC Morphology Comment Normal morphology (NORM) Plt Morphology Comment Normal morphology (NORM) RBC Morph Comment See comments (NORM) PT 10.4 (9.7-11.4) secs INR 0.98 (0.00-5.90) N/A Sodium 138 (135-145) meq/L Potassium 4.9 (3.8-5.2) meq/L Chloride 102 (98-112) meq/L Carbon Dioxide 24 (23-33) meq/L Anion Gap 12 (5-20) BUN 15 (7-22) mg/dL Creatinine 0.8 (0.50-1.20) mg/dL Estimated GFR (>60 ml/min/1.73m(2)) BUN/Creatinine Ratio 18.75 (6-20) Glucose 95 (78-110) mg/dL Calculated Osmolality 286.0 (267-292) mOsm/kg Calcium 9.6 (8.7-10.7) mg/dL Magnesium 2.2 (1.6-2.4) mg/dL Total Bilirubin 0.4 (0.3-1.2) mg/dL AST 33 (8-39) IU/L ALT 25 (9-52) IU/L Alkaline Phosphatase 58 (38-126) IU/L Total Protein 7.4 (6.1-8.0) g/dL Albumin 4.3 (3.5-4.8) g/dL Globulin 3.1 (2.50-4.10) g/dL Albumin/Globulin Ratio 1.30 (1.3-2.0) mg/g Ur Collection Type Cath specimen Urine Color Yellow Urine Clarity Clear (CLEAR) Urine pH 6.5 (5.0-8.5) Ur Specific [place] 1.010 (1.005-1.030) Urine Protein Negative (NEG) mg/dl Urine Glucose (UA) Negative (NEG) mg/dL Urine Ketones Negative (NEG) Urine Occult Blood Small H (NEG) Urine Nitrate Positive H (NEG) Urine Bilirubin Negative (NEG) Urine Urobilinogen 0.2 (0.2) EU/dL Ur Leukocyte Esterase Negative (NEG) Urine RBC 1-3 (NONE) /hpf Urine WBC 0-1 (NONE) Ur Squamous Epith Cells None (NONE) Ur Renal Epithelial Cell None (NONE) Urine Crystals None Urine Bacteria Few (NONE) Urine Casts None (NONE) Urine Mucus None (NONE) Urine Trichomonas None (NONE) Urine Yeast None (NONE) Ur Culture Indicated? Culture set Stool Occult Blood Cancelled 01/15/17 01/16/17 01/17/17 Range/Units 05:46 04:50 04:00 WBC 4.24 L 4.87 4.14 L (4.8-10.8) 10^3/uL RBC 4.61 4.46 4.39 (4.20-5.40) 10^6/uL Hgb 10.4 L 10.3 L 10.0 L (12.0-16.0) g/dL Hct 34.1 L 33.3 L 32.7 L (37.0-47.0) % MCV 74 L 74.7 L 74.5 L (81-99) FL MCH 22.6 L 23.1 L 22.8 L (27-31) PG MCHC 30.5 L 30.9 L 30.6 L (33-37) g/dL RDW Std Deviation 66.8 H 67.4 H 66.2 H (39-50) fL RDW Coeff of Abdulaziz 26.2 H 26.3 H 25.8 H (11.5-14.5) % Plt Count 446 H 311 456 H (140-350) 10*3/uL MPV 9.3 10.3 10.0 (7.4-12.2) FL Immature Gran % (Auto) 0 0.2 (0-5) % Neut % (Auto) 45.9 L 49.4 L (50-80) % Lymph % (Auto) 38.9 33.7 (10-50) % [place] % (Auto) 9.7 11.3 (5-15) % Eos % (Auto) 3.1 2.5 (0-8) % Baso % (Auto) 2.4 H 2.9 H (0-1) % Immature Gran # (Auto) 0 0.01 10*3/UL Neut # (Auto) 1.95 2.41 10*3/UL Lymph # (Auto) 1.65 1.64 10*3/uL [place] # (Auto) 0.41 0.55 (0.3-0.8) 10*3/UL Eos # (Auto) 0.13 0.12 10*3/UL Baso # (Auto) 0.10 0.14 10*3/UL WBC Morphology Comment See comments Normal morphology (NORM) Plt Morphology Comment Normal morphology Normal morphology (NORM) RBC Morph Comment See comments See comments (NORM) PT (9.7-11.4) secs INR (0.00-5.90) N/A Sodium 138 141 (135-145) meq/L Potassium 4.0 4.4 (3.8-5.2) meq/L Chloride 106 110 (98-112) meq/L Carbon Dioxide 25 24 (23-33) meq/L Anion Gap 7 7 (5-20) BUN 11 9 (7-22) mg/dL Creatinine 0.8 0.8 (0.50-1.20) mg/dL Estimated GFR (>60 ml/min/1.73m(2)) BUN/Creatinine Ratio 13.75 11.25 (6-20) Glucose 86 75 L (78-110) mg/dL Calculated Osmolality 283.0 289.0 (267-292) mOsm/kg Calcium 8.6 L 8.5 L (8.7-10.7) mg/dL Magnesium (1.6-2.4) mg/dL Total Bilirubin (0.3-1.2) mg/dL AST (8-39) IU/L ALT (9-52) IU/L Alkaline Phosphatase (38-126) IU/L Total Protein (6.1-8.0) g/dL Albumin (3.5-4.8) g/dL Globulin (2.50-4.10) g/dL Albumin/Globulin Ratio (1.3-2.0) mg/g Ur Collection Type Urine Color Urine Clarity (CLEAR) Urine pH (5.0-8.5) Ur Specific [place] (1.005-1.030) Urine Protein (NEG) mg/dl Urine Glucose (UA) (NEG) mg/dL Urine Ketones (NEG) Urine Occult Blood (NEG) Urine Nitrate (NEG) Urine Bilirubin (NEG) Urine Urobilinogen (0.2) EU/dL Ur Leukocyte Esterase (NEG) Urine RBC (NONE) /hpf Urine WBC (NONE) Ur Squamous Epith Cells (NONE) Ur Renal Epithelial Cell (NONE) Urine Crystals Urine Bacteria (NONE) Urine Casts (NONE) Urine Mucus (NONE) Urine Trichomonas (NONE) Urine Yeast (NONE) Ur Culture Indicated? Stool Occult Blood Patient Problems - Patient Problem List (1) Generalized weakness Status: Acute (2) Fecal incontinence Status: Resolved Qualifiers: Fecal incontinence type: unspecified Qualified Description: Incontinence of feces, unspecified fecal incontinence type Qualifier Code( s): (R15.9) Full incontinence of feces (3) UTI (urinary tract infection) Status: Acute Qualifiers: Urinary tract infection type: acute cystitis Hematuria presence: with hematuria Qualified Description: Acute cystitis with hematuria Qualifier Code(s): (N30.01) Acute cystitis with hematuria (4) Chronic pain syndrome Status: Acute (5) GERD (gastroesophageal reflux disease) Status: Acute Qualifiers: Esophagitis presence: with esophagitis Qualified Description: Gastroesophageal reflux disease with esophagitis Qualifier Code(s): (K21.0 ) Gastro-esophageal reflux disease with esophagitis (6) Macular degeneration Status: Chronic (7) Iron deficiency anemia due to chronic blood loss Status: Acute (8) GI bleed Status: Resolved Priority: High Qualifiers: GI bleed type/associated pathology: unspecified gastrointestinal hemorrhage type Qualified Description: Gastrointestinal hemorrhage, unspecified gastrointestinal hemorrhage type Qualifier Code(s): (K92.2) Gastrointestinal hemorrhage, unspecified (9) Lumbar spinal stenosis Status: Acute
--- NOTE | 2017-01-18 08:02 | PT.PROG ---
Progress Note Progress Note: S: Pt. states she is feeling pretty good. O: Treatment consisted of therapeutic exercises: 3 x 30 minutes drills, ball squeezes, reverse ham curls with red theraband x 10, seated clams, ankle pumps x 10, bicep curls, x 10, bicep curls, box #2 x 10, laq x 10, seated marches. A: pt. continues to make good progress with activities. She is hoping to get to go home soon. P: Continue per POC to increase strength and activity tolerance. Elva Elkins, BOTTLED BEVERAGE INSPECTOR
== END 2017-01-17 14:40 | disposition home or self-care (01) | DRG 392 ==
LOC: ER 13:00 → MED/SURG 16:17 → OPS 01-16 08:42 → MED/SURG 01-16 10:04
PROVIDERS: ADMIT Family Medicine; ATTEND Family Medicine
DX: K92.2 Gastrointestinal hemorrhage, unspecified (principal); R53.1 Weakness; R15.9 Full incontinence of feces; N39.0 Urinary tract infection, site not specified; M48.06 Spinal stenosis, lumbar region; G89.4 Chronic pain syndrome; K21.0 Gastro-esophageal reflux disease with esophagitis; H35.30 Unspecified macular degeneration; D50.9 Iron deficiency anemia, unspecified; K22.70 Barrett's esophagus without dysplasia
CPT/HCPCS: 36415; 71020; 72170; 72220; 74177; 80048; 80053; 81001; 81003; 82272; 83735; 85025; 85027; 85610; 87040; 87046; 87088; 87205; 87328; 87329; 87493; 88305; 88312; 88313; 94761; 97110; 97161; 97166; 97530; 99285; J0696; J1756; J2405; J3030; J3490; J7030; J7050; J7120

== ENCOUNTER → 2017-01-18 | Outpatient (CLI) | payer OTHER, BC | LOC: MMPC 10:00 | PROVIDERS: ATTEND Internal Medicine | DX: M47.816 Spondylosis without myelopathy or radiculopathy, lumbar region (principal); J18.9 Pneumonia, unspecified organism; K21.9 Gastro-esophageal reflux disease without esophagitis; G89.4 Chronic pain syndrome; D50.8 Other iron deficiency anemias | CPT/HCPCS: 99213; G0463 ==

== ENCOUNTER 2017-02-03 14:02 | Outpatient (CLI) | payer OTHER, BC ==
[2017-02-03 14:14] VITALS: RESP 22; TEMP 98
[2017-02-03] MEDS ORDERED: Iron Sucrose Inj 500 MG in Sodium Chloride 0.9% 250 ML IV ONE (14:15)
[2017-02-03] MEDS ORDERED: NORMAL SALINE 10 ML SYRINGE FLUSH IVP PRN (14:15)
== END 2017-02-03 18:29 | disposition home or self-care (01) ==
LOC: IV THERAPY 14:02
PROVIDERS: ATTEND Family Medicine
DX: D50.9 Iron deficiency anemia, unspecified (principal)
CPT/HCPCS: 96365; 96366; 99211; J1756; J7050

== ENCOUNTER 2018-05-08 08:18 | Observation (INO) ==
--- NOTE | 2018-05-08 08:54 | PDOC ---
Fall HPI - General Chief Complaint: Fall Stated Complaint: fall, unknown down time with neck/back/knee pain Date Seen by Provider: 05/08/18 Time Seen by Provider: 08:54 Source: POSITIVE: Patient Exam Limitations: POSITIVE: No limitations Nurse's Notes Reviewed & Considered: Yes - History of Present Illness Initial Comments: Patient is a 83 y/o female with a history of neuropathy on amitriptyline who presents after having a fall. Patient and daughter report that her medication dose was increased from 30 to 50 mg. She had been taking 3 10 mg tabs and thinks that she ended up taking 5 50 mg tabs. She was very sleepy and much more fatigued. Patient reports that she fell and her legs gave out. She looked at her clock and fell around 3:00 or so. She as unable to get up of the ground. EMS was called. She has chronic pain and neuropathy in the LE. The left knee and right hip are more painful. Patient reports that she did hit her head as well. No LOC. Patient has chronic neck pain and it is difficult to tell if it is worse that usual or not. She has chronic swelling in the LE that is unchanged. Pain is worse with movement. No relieving factors. Mild in overall severity. No nausea or vomiting. No chest pain or SOB. Have you received a tetanus shot in the past 10 years?: Unknown - Patient Home Medications Home Medications: Home Medications Calcium Carbonate/Vitamin D3 [Calcium 600 + Vit D 400 Caplet] 1 cap PO BID #60 tab 09/28/12 Travoprost (Benzalkonium) [Travatan 0.004% Eye Drop] 1 drp EACH EYE HS drp Phenazopyridine HCl [Pyridium] 100 mg PO QD tab 04/26/14 SUMAtriptan Inj [Imitrex Inj] 6 mg SUBCUT ONCE #1 ml 08/26/15 Docusate Sodium [Stool Softener] 100 mg PO DAILY tab 11/05/15 Multivitamin [Daily Olinda] 1 tab PO DAILY tab 11/05/15 clobetasol 0.05 % topical cream 1 applic TOPICAL QHS #60 g 06/15/17 triamcinolone acetonide 0.1 % topical cream 30 gm TOPICAL QD #1 tube 08/10/17 lidocaine 5 % topical patch 1 patch TRANSDERM daily/prn #30 patch 12/16/17 gabapentin 300 mg capsule 300 mg PO TID #90 cap 12/20/17 Beta Carot W/Vit E,C,Min Tab [Ocuvite Tab] 1 ea PO DAILY 12/26/17 meloxicam 7.5 mg tablet 7.5 mg PO BID #60 tab 03/31/18 triazolam 0.25 mg tablet 0.25 mg PO QHS PRN #30 tab-cap 04/04/18 conjugated estrogens 0.625 mg/gram vaginal cream 500 mg VAGINAL 3XW #30 g amitriptyline 50 mg tablet 50 mg PO QPM #30 tab 05/05/18 omeprazole 40 mg capsule,delayed release 40 mg PO BID #180 cap 05/05/18 oxycodone 15 mg tablet 15 mg PO Q4-6H PRN #90 tab 05/05/18 Trimethoprim 100 mg PO DAILY 05/08/18 - Patient Allergies Allergies/Adverse Reactions: Allergies 3 Allergy/AdvReac Type Severity Reaction Status Date / Time duloxetine [From Cymbalta] AdvReac Intermediate Trigeminal Verified 05/08/18 08: 58 Neuralgia codeine AdvReac NAUSEA Verified 05/08/18 08:58 Past Medical History - heen HEENT History: Glaucoma, Macular Degeneration, Cataracts, Dentures/Partials Additional HEENT History: TMJ Cardiovascular History: Hyperlipidemia Additional Cardiovasular History: HEART MURMUR Respiratory History: Pneumonia, Other (please comment) Additional Respiratory History: previous tobacco use, quit in 1967. SOB WITH ACTIVITY. SHALLOW BREATHER, HAD HOME O2 BUT STATES DIDN'T WORK FOR HER Gastrointestinal History: GERD Additional Gastrointestinal History: constipation / SAUCEDA'S ESOPHAGUS, blood in stool Genitourinary History: Recurrent UTI, Other (please comment) Additional Genitourinary History: CHRONIC URINARY PAIN Endocrine History: Denies History Musculoskeletal History: Arthritis, Osteoporosis, Fibromyalgia, Back Pain, Joint Pain Prosthesis or Implant: Yes (LEFT TKA, DENTAL) Additional Musculoskeletal History: limited ROM in shoulders. Neurological History: Migraines Blood Disorders: Anemia Additional Blood Disorders History: iron deficiency Psychiatric History: Denies History History of Sexually Transmitted Diseases: No Cancer History: Denies History History of MDRO: No History of Other Communicable Diseases: No Alcohol Use: None In the Past 12 Months, Have Used or Abuse Any Substance: None Previous Surgical History: Yes Type / Date of Surgery: COLONOSCOPY/ TONSILLECTOMY/LEFT TKA /EGD/ TRIAL STIMULATOR PLACEMENT, LEFT WRIST Anesthesia Reactions: No Malignant Hyperthermia: No Significant Family History: Heart disease, Cancer Past Medical History Reviewed: Reviewed - No Changes ROS - Limitations ROS Limitations: No Limitations Constitution: REPORTS: Weakness Cardiovascular: REPORTS: Denies Cardiac Symptoms Respiratory: REPORTS: Denies Resp Symptoms Neurological: REPORTS: Weakness Gastrointestinal: REPORTS: Denies GI Symptoms Endocrine: REPORTS: Fatigue Musculoskeletal: REPORTS: Other (Left knee pain and right hip pain. Neck pain.) Eyes: REPORTS: Denies Symptoms ENT: REPORTS: Denies Symptoms Skin: REPORTS: Denies Skin Symptoms Lympathic: REPORTS: Denies Lympathic Symptoms Psychiatric: POSITIVE: Denies Psych Symptoms Fall Physical Exam - General Appearance General Appearance: POSITIVE: Alert, Cooperative, No Acute Distress - HEENT HEENT: POSITIVE: Head Inspection Nml, Eyes Inspection Nml - Pupil Size Pupil Size: 4 mm: Bilateral - Neck Neck: POSITIVE: Other (Mild tenderness to palpation of the neck. 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 Decreased ROM 2/2 pain. No erythema or bruising. Fall Progress - Results Reviewed by me Xrays/CTs/US Reviewed by me: Yes Lab Results Reviewed by Me: Yes CBC and BMP: 05/08/18 09:03 05/08/18 09:03 Lab Results:: Laboratory Results 3 05/08/18 05/08/18 09:03 09:03 WBC 9.42 RBC 4.65 Hgb 12.9 Hct 40.9 MCV 88.0 MCH 27.7 MCHC 31.5 L RDW Std Deviation 52.5 H RDW Coeff of Abdulaziz 16.7 H Plt Count 214 MPV 10.1 Immature Gran % (Auto) 0.1 Neut % (Auto) 87.2 H Lymph % (Auto) 9.2 L [place] % (Auto) 3.3 L Eos % (Auto) 0.1 Baso % (Auto) 0.1 Immature Gran # (Auto) 0.01 Neut # (Auto) 8.21 Lymph # (Auto) 0.87 [place] # (Auto) 0.31 Eos # (Auto) 0.01 Baso # (Auto) 0.01 WBC Morphology Comment Normal morphology Plt Morphology Comment Normal morphology RBC Morph Comment Normal morphology Sodium 142 Potassium 4.5 Chloride 104 Carbon Dioxide 30 Anion Gap 8 BUN 18 Creatinine 0.6 BUN/Creatinine Ratio 30.00 H Glucose 110 Calculated Osmolality 296.0 H Calcium 8.8 Total Bilirubin 0.4 AST 25 ALT 23 Alkaline Phosphatase 54 Total Protein 6.8 Albumin 4.1 Globulin 2.7 Albumin/Globulin Ratio 1.50 EKG Interpreted/Reviewed By Me:: Yes (Sinus No STEMI) - Patient's Progress MDM / ED Course: Patient is a 83 y.o female who presents after a fall. Vitals are unremarkable other than slight decrease in 02 level and examination demonstrates some tenderness to knee, hip and neck. Differential diagnosis includes but is not limited to ICH, Neck injury, hip or knee injury, electrolyte abnormality, UTI, medication interaction. CT of the head and neck negative for acute fracture. XR of the left knee and right hip negative. labs are as above and UA is pending. Will get cath sample. EKG does not show signs of arrhythmia. With her accidental overdose will admit for further monitoring. - Consult Consulting MD will see pt:: POSITIVE: [facility] [place] Admit Patient Care Time - Estimated PCT Patient Care Time (In Minutes): 35 Vital Signs - Recent Vital Signs Vital Signs: Vital Signs (Last 8 hours) Temp Pulse Resp BP Pulse Ox 05/08/18 08:18 98.0 F 89 18 137/69 93 - VS Reviewed Vital Signs Reviewed: Yes Discharge Clinical Impression: Left knee pain Qualifiers: Chronicity: acute Qualified Code(s): M25.562 - Pain in left knee Accidental medication overdose Qualifiers: Encounter type: initial encounter Qualified Code(s): T50.901A - Poisoning by unspecified drugs, medicaments and biological substances, accidental ( unintentional), initial encounter Discharge Disposition: Admit to Observation Condition: Good Follow Up With: DINESH GRIFFITH [Primary Care Provider] - Date Decision to Admit to Inpatient: 05/08/18 Time Decision to Admit to Inpatient: 11:39
[2018-05-08 09:57] LABS: BASOPHILS # (AUTO) 0.01 10*3/UL; BASOPHILS % (AUTO) 0.1 % (0-1); EOSINOPHILS # (AUTO) 0.01 10*3/UL; EOSINOPHILS % (AUTO) 0.1 % (0-8); Hematocrit [HCT] 40.9 % (37.0-47.0); Hemoglobin [HGB] 12.9 g/dL (12.0-16.0); LYMPHOCYTES # (AUTO) 0.87 10*3/uL; MEAN CORPUSCULAR HEMOGLOBIN 27.7 PG (27-31); MEAN CORPUSCULAR HGB CONC 31.5 g/dL (33-37); MEAN PLATELET VOLUME 10.1 FL (7.4-12.2); MONOCYTES # (AUTO) 0.31 10*3/UL (0.3-0.8); MONOCYTES % (AUTO) 3.3 % (5-15); NEUTROPHILS # (AUTO) 8.21 10*3/UL; NEUTROPHILS % (AUTO) 87.2 % (50-80); RED BLOOD COUNT 4.65 10^6/uL (4.20-5.40)
[2018-05-08 10:07] LABS: BLOOD UREA NITROGEN 18 mg/dL (7-22); SERUM ALBUMIN 4.1 g/dL (3.5-4.8)
[2018-05-08 10:08] LABS: PLATELET MORPHOLOGY COMMENT NORMAL MORPHOLOGY (NORM); RBC MORPHOLOGY COMMENT NORMAL MORPHOLOGY (NORM); WBC MORPHOLOGY COMMENT NORMAL MORPHOLOGY (NORM)
--- NOTE | 2018-05-08 11:06 | DI ---
INDICATION: Trauma TECHNIQUE: Multiple, contiguous 2.5 mm axial cuts of the brain are obtained from the posterior fossa to the cranial vault. Sagittal and coronal reformatted images provided. No IV contrast is administered. COMPARISON: None FINDINGS: No intracranial hemorrhage, abnormal intra- or extra-axial collections or parenchymal lesions are seen. There are involutional changes with prominence of the sulci, basal cisterns and ventricles. Scattered white matter hypoattenuations are present, likely from small vessel disease. The davis-white differentiation is preserved. No evidence of mass effect, midline shift, or edema. The osseous structures are unremarkable. The visualized portions of the paranasal sinuses are clear. Atherosclerotic vascular disease. IMPRESSION: 1. No acute intracranial process. 2. Involutional changes with small vessel disease.
--- NOTE | 2018-05-08 11:17 | DI ---
EXAM: XR Right Hip With Pelvis When Performed, 1 View CLINICAL HISTORY: ITS.REASON Trauma Physician Notes: Tech Comments: TECHNIQUE: Frontal view of the right hip, with pelvis when performed. COMPARISON: No relevant prior studies available. FINDINGS: Bones/joints: Degenerative changes lower lumbar spine. No acute fracture. No dislocation. Soft tissues: Unremarkable. Gastrointestinal tract: Moderate stool in colon. IMPRESSION: No acute findings.
--- NOTE | 2018-05-08 11:19 | DI ---
EXAM: XR Left Knee, 3 views CLINICAL HISTORY: ITS.REASON Trauma Physician Notes: Tech Comments: TECHNIQUE: Three views of the left knee. COMPARISON: No relevant prior studies available. FINDINGS: Bones/joints: Total knee prosthesis intact. No acute fracture. No dislocation. Soft tissues: Unremarkable. Soft tissue calcification anterior knee. IMPRESSION: 1. No fracture or malalignment. 2. Total knee prosthesis intact.
--- NOTE | 2018-05-08 11:36 | DI ---
EXAM: CT Cervical Spine Without Intravenous Contrast CLINICAL HISTORY: ITS.REASON Trauma Physician Notes: Tech Comments: TECHNIQUE: Axial computed tomography images of the cervical spine without intravenous contrast. COMPARISON: CT cervical spine 01/10/15 FINDINGS: No fracture or subluxations are noted. The vertebral body heights and alignment are preserved. No prevertebral soft tissue swelling. Note is made of multilevel cervical spondylosis with varying degrees of central canal and foramina stenoses. Mild ethmoid sinus mucosal thickening. Trace fluid in the left sphenoid sinus. Small mucous retention cyst or polyp in the right sphenoid sinus. Mastoid air cells are clear. IMPRESSION: 1. No cervical fractures. 2. Cervical spondylosis with varying degrees of central canal and foramina stenoses. Stable. 3. Paranasal sinus disease.
--- NOTE | 2018-05-08 12:00 | PDOC ---
HPI - History of Present Illness History of Present Illness: This very nice 83-year-old female with past medical history significant for neuropathy she is on gabapentin her primary care physician increased her dose of amitriptyline from 30 mg to 50 mg. She has been taking 310 mg tabs and she thinks but is not sure that she ended up taking 5-50 mg tabs. Patient sustained a fall that her legs gave out round 3:00 this morning unable to get up from the ground ambulance was called age and had x-rays no fractures T scan of her head was negative. After talking with the daughter and the patient and the portals were counted them with the nurse and the daughter which is her primary safety investigator/cause analyst there were only 2 pills missing and the patient states that she did not take to or 5 white it was thought. At this point the daughter's and the patient do not want to do any PT or OT and would like to take her mother home since she be more comfortable in her recliner does not want to come into the hospital. They will let us stop taking the amitriptyline since they state they don't know why it was increased in the first place and also diagnosed noticed no difference with taking it. Her primary care physician Dr. Cuello had ordered a catheterized specimen of her urine and was supposed to be done tomorrow but instead it was done in the ER. He wanted to wait for the cultures before treating since that he has treated it a few times already. Also they would like to get some IV fluids before going home. I spoke to Dr. Kowalski and related that this new plan about the patient's wishes. He has agreed patient will be going home her daughter will stay with her overnight. Also she had her OxyContin increased from 10 to 15 and this had caused her dizziness as well she is also on Neurontin with combination of OxyContin will combination of Halcion with combination of a sleeping medication and this multi- pharmacy can definitely have side effects of dizziness have a told this to the family. - Patient Allergies Allergies/Adverse Reactions: Allergies 3 Allergy/AdvReac Type Severity Reaction Status Date / Time duloxetine [From Cymbalta] AdvReac Intermediate Trigeminal Verified 05/08/18 08: 58 Neuralgia codeine AdvReac NAUSEA Verified 05/08/18 08:58 Past Medical History Medical History: 1. GERD-with Gutierrez's esophagus. 2. Osteoporosis. 3. Lumbar spondylosis. 4. Osteoarthritis. 5. Hx of hyperlipidemia. 6. Gutierrez's esophagitis. 7. macular degeneration. 8. chronic interstitial cystitis with recurrent UTI's. 9. Anemia. 10. History of colon polyps Surgical History: 1. colonoscopies and EGD's-multiple of each.. most recent colonoscopy had a tubular adenoma in 2009. Patient reports she had an upper endoscopy and lower endoscopy within the last 3 years. 2. left knee surgery. 3. spinal stimulator with subsequent removal ( this was a stimulator electrode test. patient then had a blood patch). 4. hand surgery. Family History: Reviewed an Not Pertinent Pertinent Family History: significant for heart disease in her father Past Social History: quit smoking in the , no alcohol, has children that are healthy. ambulates with walker and lives independently in the [facility]. Tobacco Use: Never Smoker In the Past 12 Months, Have Used or Abuse Any of the Following Substance: None Medication / Allergies Home Medications: Home Medications 3 Medication Instructions Recorded Confirmed Type Calcium Carbonate/Vitamin D3 1 cap PO BID #60 tab 09/28/12 05/08/18 History [Calcium 600 + Vit D 400 Caplet] Travoprost (Benzalkonium) 1 drp EACH EYE HS drp 01/16/13 05/08/18 History [Travatan 0.004% Eye Drop] Phenazopyridine HCl [Pyridium] 100 mg PO QD tab 04/26/14 05/08/18 History SUMAtriptan Inj [Imitrex Inj] 6 mg SUBCUT ONCE #1 ml 08/26/15 05/08/18 History Docusate Sodium [Stool Softener] 100 mg PO DAILY tab 11/05/15 05/08/18 History Multivitamin [Daily Olinda] 1 tab PO DAILY tab 11/05/15 05/08/18 History clobetasol 0.05 % topical cream 1 applic TOPICAL QHS #60 g 06/15/17 05/08/18 Rx triamcinolone acetonide 0.1 % 30 gm TOPICAL QD #1 tube 08/10/17 05/08/18 Rx topical cream lidocaine 5 % topical patch 1 patch TRANSDERM daily/prn #30 12/16/17 05/08/18 Rx patch gabapentin 300 mg capsule 300 mg PO TID #90 cap 12/20/17 05/08/18 Rx Beta Carot W/Vit E,C,Min Tab 1 ea PO DAILY 12/26/17 05/08/18 History [Ocuvite Tab] meloxicam 7.5 mg tablet 7.5 mg PO BID #60 tab 03/31/18 05/08/18 Rx triazolam 0.25 mg tablet 0.25 mg PO QHS PRN #30 tab-cap 04/04/18 05/08/18 Rx conjugated estrogens 0.625 mg/gram 500 mg VAGINAL 3XW #30 g 05/04/18 05/08/18 Rx vaginal cream amitriptyline 50 mg tablet 50 mg PO QPM #30 tab 05/05/18 05/08/18 Rx omeprazole 40 mg capsule,delayed 40 mg PO BID #180 cap 05/05/18 05/08/18 Rx release oxycodone 15 mg tablet 15 mg PO Q4-6H PRN #90 tab 05/05/18 05/08/18 Rx Trimethoprim 100 mg PO DAILY 05/08/18 05/08/18 History Allergies/Adverse Reactions: Allergies 3 Allergy/AdvReac Type Severity Reaction Status Date / Time duloxetine [From Cymbalta] AdvReac Intermediate Trigeminal Verified 05/08/18 08: 58 Neuralgia codeine AdvReac NAUSEA Verified 05/08/18 08:58 Exam - Vitals Vital Signs: Vital Signs Temperature 98.0 F Temperature Source Temporal Artery Scan Pulse Rate [Pulse Oximeter 89 Right] Respiratory Rate 18 Blood Pressure [Left Arm] 137/69 Pulse Ox 93 Oxygen Delivery Method Room Air Height 5 ft Weight 120 lb - General General Appearance: No Acute Distress, Cooperative - Respiratory Respiratory Exam: POSITIVE: Clear to Auscultation - Bilaterally, Breathing Non Labored, Normal To Percussion, Normal to Percussion and Palpation - Cardiovascular Cardiovascular Exam: POSITIVE: RRR, No Murmur, No Clicks, No Gallops, No Rubs, PMI Non-Displaced - GI/Abdominal GI/Abdominal Exam: POSITIVE: Normal Bowel Sounds, Non Tender, Non Distended, Soft, No Masses, No Hepatomegaly, No Splenomegaly, No Organomegaly - Neurological Neurological Exam: POSITIVE: Alert, Oriented x 3, No Facial Droop, Speech Intact / Clear Results - Labs CBC and BMP: 05/08/18 09:03 05/08/18 09:03 Assessment and Plan - Patient Problems (1) Chronic interstitial cystitis Current Visit: No Status: Acute Onset Date: 02/04/15 Code(s): N30.10 - Interstitial cystitis (chronic) without hematuria (2) Chronic pain syndrome Current Visit: No Status: Acute Onset Date: 12/28/16 Comment: On narcotics Code(s): G89.4 - Chronic pain syndrome (3) Constipation due to pain medication Current Visit: No Status: Acute Onset Date: 10/20/16 Code(s): K59.03 - Drug induced constipation (4) Peripheral polyneuropathy Current Visit: No Status: Acute Onset Date: 11/17/16 Code(s): G62.9 - Polyneuropathy, unspecified (5) Fall Current Visit: Yes Status: Acute Code(s): W19.XXXA - Unspecified fall, initial encounter - Assessment / Plan Additional Assessment/Plan Details: Please see my HPI for plan discussed the plan with Dr. Kowalski in ER nurse patient and family members
[2018-05-08 12:21] LABS: BILIRUBIN,URINE NEGATIVE (NEG); CLARITY,URINE CLEAR (CLEAR); COLOR,URINE YELLOW (Y); GLUCOSE, URINE (UA) NEGATIVE (NEG); OCCULT BLOOD,URINE Trace-intact (NEG); PH,URINE 5.5 (5.0-8.5); PROTEIN,URINE NEGATIVE (NEG); RENAL EPITHELIAL CELLS,URINE FEW; SQUAMOUS EPITHELIAL CELL,UR MODERATE; URINE SAMPLE TYPE CATH SPECIMEN; UROBILINOGEN,URINE 0.2 EU/dL (0.2); WBC,URINE 0-5
[2018-05-08] MEDS ORDERED: Sodium Chloride 0.9% 1,000 ML PRIMARY IV ONE (12:59)
[2018-05-08] MEDS ORDERED: LIDOCAINE 700 MG PATCH TOPICAL ONE (13:04)
[2018-05-08] MEDS ORDERED: ACETAMINOPHEN 325 MG TABLET PO PRN ×2 (13:12→14:02)
[2018-05-08] MEDS ORDERED: DOCUSATE 100 MG CAPSULE PO PRN ×2 (13:12→14:02)
[2018-05-08] MEDS ORDERED: CALCIUM CARBONATE 500 MG (TUMS) CHEWABLE TABLET PO PRN ×2 (13:12→14:02)
[2018-05-08] MEDS ORDERED: ONDANSETRON 4 MG/2 ML VIAL IVP PRN ×2 (13:12→14:02)
[2018-05-08] MEDS ORDERED: LIDOCAINE W/ SODIUM BICARB 0.5 ML SYR SUBD PRN ×2 (13:12→14:02)
--- NOTE | 2018-05-08 14:08 | DI ---
EXAM: XR Chest, 1 View CLINICAL HISTORY: ITS.REASON difficulty breathing, pain Physician Notes: Tech Comments: TECHNIQUE: Frontal view of the chest. COMPARISON: Chest x-ray 03/04/18 FINDINGS: Lungs: Unremarkable. No consolidation. Pleural space: Unremarkable. No pneumothorax. Heart: Unremarkable. No cardiomegaly. Mediastinum: Unremarkable. Bones/joints: Mild degenerative changes of the spine. Vasculature: Aortic knob calcification. IMPRESSION: No acute findings.
[2018-05-08] MEDS ORDERED: TRIAZOLAM 0.25 MG PO PRN (14:09)
[2018-05-08] MEDS: oxyCODONE IR Tab 15 MG TAB PO PRN ×2 (14:19→18:07)
[2018-05-08] MEDS: Lactated Ringers 1,000 ML PRIMARY IV SCH ×2 (14:39→23:19)
[2018-05-08] MEDS: GABAPENTIN 300 MG CAPSULE PO SCH ×2 (15:17→20:25)
[2018-05-08] MEDS: OMEPRAZOLE 40 MG CAPSULE PO SCH (15:17)
--- NOTE | 2018-05-08 17:12 | EKG ---
[address] [place] [address] [place] [address] Measurements Intervals [place] Rate: 91 P: 62 [place]: 159 QRS: -34 QRSD: 78 T: 53 QT: 360 QTc: 409 Interpretive Statements SINUS RHYTHM MARKED LEFT AXIS DEVIATION [QRS AXIS < -30] POSSIBLE ANTERIOR MYOCARDIAL INFARCTION [30 ms Q WAVE IN V3/V4, OR R < 0.2 mV IN V4], OF INDETERMINATE AGE Compared to ECG 12/26/2017 12:05:32 No significant changes Electronically Signed On 05-09-18 08:35:14 MST by Ji Arriaga MD [email or web address]
[2018-05-08] MEDS: HEPARIN 5000 UNIT/1 ML SUBCUT SCH (18:54)
[2018-05-08] MEDS: Meloxicam Tab 7.5 MG TABLET PO SCH (20:25)
[2018-05-08] MEDS ORDERED: EYE EACH EYE SCH (21:00)
[2018-05-08] MEDS ORDERED: TRAVOPROST 0.004% EACH EYE SCH (21:00)
[2018-05-08] MEDS ORDERED: Patch Removal LIDOCAINE PATCH TRANSDERM ONE (21:00)
[2018-05-09] MEDS: HEPARIN 5000 UNIT/1 ML SUBCUT SCH (04:21)
[2018-05-09] MEDS: OMEPRAZOLE 40 MG CAPSULE PO SCH (06:44)
[2018-05-09 07:12] VITALS: BP 172/69; RESP 22; TEMP 98; O2SAT 93
[2018-05-09] MEDS: Lactated Ringers 1,000 ML PRIMARY IV SCH (08:41)
[2018-05-09] MEDS: Meloxicam Tab 7.5 MG TABLET PO SCH (08:42)
[2018-05-09] MEDS: GABAPENTIN 300 MG CAPSULE PO SCH (08:42)
[2018-05-09] MEDS ORDERED: Beta Carot W/Vit E,C,Min Tab 1 TAB TAB PO SCH (09:00)
[2018-05-09] MEDS ORDERED: Multivitamin Tab 1 TAB PO SCH (09:00)
[2018-05-09] MEDS ORDERED: Calcium/Vit D 600mg/400u Tab 1 TAB TABLET PO SCH (09:00)
[2018-05-09] MEDS ORDERED: TRIAMCINOLONE ACETONIDE 0.1% 15 GM OINT TOPICAL SCH (09:00)
[2018-05-09] MEDS ORDERED: DOCUSATE 100 MG CAPSULE PO SCH (09:00)
--- NOTE | 2018-05-09 09:26 | DCSUMMARY ---
Hospitalization Summary Hospital Course: Final Discharge Diagnosis: Current Visit Problems Problem Status Onset Code Left knee pain Acute M25.562 Accidental medication overdose Acute T50.901A Fall Acute W19.XXXA Diagnostic Data, Laboratory Data, and Procedures of Signifigance: CBC and BMP 05/08/18 09:03 05/08/18 09:03 History and Physical pertinent to Admission: Course of Hospitalization: This very nice 83-year-old female who was admitted for observation overnight after sustaining a fall in the middle the night patient stated she was dizzy. There was some concern that the patient took extra amitriptyline since her dose was increased but after counting the pills in the bottle there were only 2 missing and the patient did say that she only took 1. She was feeling well in the ER and now wanted to be discharged home. Later changed her mind and wanted to come in the hospital patient was observed a rehydrated overnight. No acute changes on telemetry patient is not dizzy she has moved around went to the bathroom on her own had bowel movements urinated and has back to her normal self and in good spirits she does refuse physical therapy and occupational therapy apparently they came in the room and she told him to leave. Her urine was obtained in the ER the patient's family said that Dr. Cuello wanted a sample and wanted it cultured we did call the lab to have it cultured anyway at the family's request since it did not meet criteria valve the front counter clerk actually called. I examined the patient with Carol she is back to her normal self neuro exam was unremarkable daughter was in the room as well on agreement to be discharged home. In regards to the amitriptyline they will decide with her primary care physician if the take it at all. I also told the patient and the daughter that the polypharmacy can also have some side effects in regards to dizziness she did increase her OxyIR to 15 the day she had the episode On the date of discharge, the patient was examined: Gen.: No acute distress, alert, nontoxic Heart: Regular rate and rhythm, no murmurs, clicks, gallops, or rubs Lungs: Clear to auscultation bilaterally, breathing is nonlabored Abdomen/GI: Normal tones on auscultation, soft, nontender, nondistended Musculoskeletal/extremities: No clubbing, cyanosis, or edema Vitals reviewed and are listed below Current Visit Problems Problem Status Onset Code Left knee pain Acute M25.562 Accidental medication overdose Acute T50.901A Fall Acute W19.XXXA Vital Signs (24 hrs) Temp Pulse Pulse Resp BP BP Pulse Ox 05/09/18 07:11 98.0 F 74 22 172/69 93 05/09/18 07:00 69 75 05/09/18 04:51 97.2 F 69 20 128/59 92 05/09/18 04:26 90 05/09/18 03:00 73 05/09/18 01:00 98.2 F 77 22 140/65 93 05/08/18 23:00 85 05/08/18 21:00 98.4 F 87 24 133/60 91 05/08/18 19:00 88 05/08/18 16:43 98.9 F 93 16 132/57 91 05/08/18 15:00 92 05/08/18 13:40 98.6 F 85 32 H 154/77 96 05/08/18 12:13 97.8 F 84 18 137/69 94 05/08/18 10:45 93 18 131/74 94 Assessment and Plan: 1. As per discharge assessments above 2. Disposition: Home 3. Condition on discharge, stable and improved. 4. Diet: regular diet 5. Activities: resume normal activities 6. Follow-Up: 1. PCP Dr. Cuello in 3-7 days 2. 7. Medications at the Time of Discharge: Home Medications 3 Medication Instructions Recorded Confirmed Type Calcium Carbonate/Vitamin D3 1 cap PO BID #60 tab 09/28/12 05/08/18 History [Calcium 600 + Vit D 400 Caplet] Travoprost (Benzalkonium) 1 drp EACH EYE HS drp 01/16/13 05/08/18 History [Travatan 0.004% Eye Drop] Phenazopyridine HCl [Pyridium] 100 mg PO QD tab 04/26/14 05/08/18 History SUMAtriptan Inj [Imitrex Inj] 6 mg SUBCUT ONCE #1 ml 08/26/15 05/08/18 History Docusate Sodium [Stool Softener] 100 mg PO DAILY tab 11/05/15 05/08/18 History Multivitamin [Daily Olinda] 1 tab PO DAILY tab 11/05/15 05/08/18 History clobetasol 0.05 % topical cream 1 applic TOPICAL QHS #60 g 06/15/17 05/08/18 Rx triamcinolone acetonide 0.1 % 30 gm TOPICAL QD #1 tube 08/10/17 05/08/18 Rx topical cream lidocaine 5 % topical patch 1 patch TRANSDERM daily/prn #30 12/16/17 05/08/18 Rx patch gabapentin 300 mg capsule 300 mg PO TID #90 cap 12/20/17 05/08/18 Rx Beta Carot W/Vit E,C,Min Tab 1 ea PO DAILY 12/26/17 05/08/18 History [Ocuvite Tab] meloxicam 7.5 mg tablet 7.5 mg PO BID #60 tab 03/31/18 05/08/18 Rx triazolam 0.25 mg tablet 0.25 mg PO QHS PRN #30 tab-cap 04/04/18 05/08/18 Rx conjugated estrogens 0.625 mg/gram 500 mg VAGINAL 3XW #30 g 05/04/18 05/08/18 Rx vaginal cream amitriptyline 50 mg tablet 50 mg PO QPM #30 tab 05/05/18 05/08/18 Rx omeprazole 40 mg capsule,delayed 40 mg PO BID #180 cap 05/05/18 05/08/18 Rx release oxycodone 15 mg tablet 15 mg PO Q4-6H PRN #90 tab 05/05/18 05/08/18 Rx Trimethoprim 100 mg PO DAILY 05/08/18 05/08/18 History Gabapentin [Neurontin] 300 mg PO TID cap 05/09/18 Rx Travoprost Ophth Soln 0.004% 1 drp EACH EYE BEDTIME bottle 05/09/18 Rx [Travatan Ophth Soln 0.004%] 8. Time, care, counseling and coordination of care for this discharge is greater than 30 minutes. Exam - Vitals Vital Signs: Vital Signs Temperature 98.0 F Temperature Source Temporal Artery Scan Pulse Rate [Pulse Oximeter 74 Right] Pulse Rate 69 Respiratory Rate 22 Blood Pressure [Right Arm] 172/69 Blood Pressure [Left Arm] 137/69 Pulse Ox 93 Oxygen Delivery Method Room Air Height 5 ft Weight 135 lb 9.6 oz Patient Problems - Patient Problem List (1) Chronic interstitial cystitis Current Visit: No Status: Acute Onset Date: 02/04/15 Code(s): N30.10 - Interstitial cystitis (chronic) without hematuria Category: Medical (2) Chronic pain syndrome Current Visit: No Status: Acute Onset Date: 12/28/16 Comment: The patient has chronic pain syndrome and is on narcotics and gabapentin. The patient' Gabapentin dose is being increased.Hopefully, the patient can decrease her dose of narcotics and therefore improve her chronic constipation. Code(s): G89.4 - Chronic pain syndrome Category: Medical (3) Constipation due to pain medication Current Visit: No Status: Acute Onset Date: 10/20/16 Comment: The patient has chronic constipation and splints with bowel movements. The patient has a new primary care physician-Dr. Cuello-and they are working on her chronic constipation from her chronic narcotic use. Currently, the patient uses stool softeners with little relief. Code(s): K59.03 - Drug induced constipation Category: Medical (4) Peripheral polyneuropathy Current Visit: No Status: Acute Onset Date: 11/17/16 Code(s): G62.9 - Polyneuropathy, unspecified Category: Medical (5) Fall Current Visit: Yes Status: Acute Code(s): W19.XXXA - Unspecified fall, initial encounter Category: Medical
== END 2018-05-09 11:07 | disposition home or self-care (01) ==
LOC: MED/SURG 08:18 → ER 08:18
PROVIDERS: ADMIT Internal Medicine; ATTEND Internal Medicine

== ENCOUNTER 2018-11-10 21:31 | Inpatient (IN) ==
[2018-11-10] MEDS ORDERED: ONDANSETRON 4 MG/2 ML VIAL IVP ONE ×2 (21:54→23:11)
[2018-11-10] MEDS ORDERED: MORPHINE SULFATE 4 MG/1 ML IVP ONE ×2 (21:54→23:11)
[2018-11-10] MEDS ORDERED: Sodium Chloride 0.9% 1,000 ML PRIMARY IV ONE (21:54)
[2018-11-10 22:03] LABS: BASOPHILS # (AUTO) 0.04 10*3/UL; BASOPHILS % (AUTO) 0.6 % (0-1); EOSINOPHILS # (AUTO) 0.05 10*3/UL; EOSINOPHILS % (AUTO) 0.7 % (0-8); Hematocrit [HCT] 36.6 % (37.0-47.0); Hemoglobin [HGB] 11.4 g/dL (12.0-16.0); LYMPHOCYTES # (AUTO) 1.82 10*3/uL; MEAN CORPUSCULAR HEMOGLOBIN 25.9 PG (27-31); MEAN CORPUSCULAR HGB CONC 31.1 g/dL (33-37); MEAN CORPUSCULAR VOLUME 83.2 FL (81-99); MEAN PLATELET VOLUME 10.2 FL (7.4-12.2); MONOCYTES # (AUTO) 0.38 10*3/UL (0.3-0.8); MONOCYTES % (AUTO) 5.3 % (5-15); NEUTROPHILS # (AUTO) 4.88 10*3/UL
[2018-11-10 22:09] LABS: PLATELET MORPHOLOGY COMMENT NORMAL MORPHOLOGY (NORM); RBC MORPHOLOGY COMMENT NORMAL MORPHOLOGY (NORM); WBC MORPHOLOGY COMMENT NORMAL MORPHOLOGY (NORM)
[2018-11-10 22:10] LABS: BLOOD UREA NITROGEN 18 mg/dL (7-22); LIPASE 57 IU/L (23-300)
[2018-11-10 22:12] LABS: BILIRUBIN,URINE NEGATIVE (NEG); CLARITY,URINE CLEAR (CLEAR); COLOR,URINE YELLOW (Y); GLUCOSE, URINE (UA) NEGATIVE (NEG); OCCULT BLOOD,URINE Trace-intact (NEG); PH,URINE 7.5 (5.0-8.5); PROTEIN,URINE NEGATIVE (NEG); UROBILINOGEN,URINE 0.2 EU/dL (0.2)
[2018-11-10 22:13] LABS: URINE SAMPLE TYPE CATH SPECIMEN
--- NOTE | 2018-11-10 23:34 | DI ---
EXAM: CT Abdomen and Pelvis With Intravenous Contrast CLINICAL HISTORY: ITS.REASON Abdominal Pain Physician Notes: Tech Comments: TECHNIQUE: Axial computed tomography images of the abdomen and pelvis with intravenous contrast. COMPARISON: CT dated 01/14/2017. FINDINGS: Lung bases: Mild bibasilar presumed atelectasis. Mediastinum: Moderate wall thickening the distal esophagus, otherwise not well characterized. ABDOMEN: Liver: See below. Gallbladder and bile ducts: Distended gallbladder and mild intrahepatic and extra hepatic biliary ductal dilatation , nonspecific finding. No calcified stones. Pancreas: Unremarkable. No evidence of mass. No ductal dilation. Spleen: Unremarkable. No splenomegaly. Adrenals: Unremarkable. No mass. Kidneys and ureters: 12 mm right renal cyst, previously measuring 10 mm. 45 mm right renal cyst, unchanged. Subcentimeter right renal cysts are unchanged. No hydronephrosis. Stomach and bowel: Moderate amount of stool throughout the colon. No obstruction. No mucosal thickening. PELVIS: Appendix: Thin tubular structure inferior to the cecum is favored to represent a normal appendix, however, it is not identified with certainty. Bladder: Unremarkable. No evidence of mass. Reproductive: Unremarkable as visualized. ABDOMEN and PELVIS: Intraperitoneal space: Trace free fluid in the pelvis is nonspecific. No free air. Bones/joints: Scoliosis. Soft tissues: Unremarkable. Vasculature: Unremarkable. No abdominal aortic aneurysm. Lymph nodes: Unremarkable. No enlarged lymph nodes. IMPRESSION: 1. Moderate wall thickening the distal esophagus, otherwise not well characterized. This can be further characterized by esophagram if not previously performed. 2. Distended gallbladder and mild intrahepatic and extra hepatic biliary ductal dilatation , nonspecific finding. 3. Trace free fluid in the pelvis is nonspecific.
[2018-11-11] MEDS ORDERED: DOCUSATE 100 MG CAPSULE PO PRN (00:17)
[2018-11-11] MEDS ORDERED: LIDOCAINE W/ SODIUM BICARB 0.5 ML SYR SUBD PRN (00:17)
[2018-11-11] MEDS ORDERED: ACETAMINOPHEN 325 MG TABLET PO PRN (00:17)
[2018-11-11] MEDS ORDERED: LIDOCAINE 700 MG PATCH TOPICAL PRN (00:17)
[2018-11-11] MEDS ORDERED: ONDANSETRON 4 MG/2 ML VIAL IVP PRN (00:17)
[2018-11-11] MEDS ORDERED: CALCIUM CARBONATE 500 MG (TUMS) CHEWABLE TABLET PO PRN (00:17)
[2018-11-11] MEDS ORDERED: PANTOPRAZOLE IV 40 MG VIAL IVP ONE (00:24)
--- NOTE | 2018-11-11 00:42 | EKG ---
[address] [place] [address] Measurements Intervals [place] Rate: 86 P: 36 ID: [id number] QRS: 33 QRSD: 84 T: 30 QT: 375 QTc: 419 Interpretive Statements SINUS RHYTHM POSSIBLE ANTERIOR MYOCARDIAL INFARCTION [30 ms Q WAVE IN V3/V4, OR R < 0.2 mV IN V4], OF INDETERMINATE AGE Compared to ECG 05/08/2018 11:22:04 Left-axis deviation no longer present Myocardial infarct finding still present Electronically Signed On 11-11-18 08:47:45 MDT by Ji Arriaga MD [email or web address]
[2018-11-11] MEDS: TRAVOPROST Each Eye SCH ×2 (01:06→21:21)
[2018-11-11] MEDS: Sodium Chloride 0.9% 1,000 ML PRIMARY IV SCH ×3 (01:06→22:21)
[2018-11-11 05:06] LABS: BASOPHILS # (AUTO) 0.03 10*3/UL; BASOPHILS % (AUTO) 0.4 % (0-1); EOSINOPHILS # (AUTO) 0.02 10*3/UL; EOSINOPHILS % (AUTO) 0.3 % (0-8); Hematocrit [HCT] 32.7 % (37.0-47.0); LYMPHOCYTES # (AUTO) 1.25 10*3/uL; MEAN CORPUSCULAR HEMOGLOBIN 25.8 PG (27-31); MEAN CORPUSCULAR HGB CONC 30.6 g/dL (33-37); MEAN CORPUSCULAR VOLUME 84.3 FL (81-99); MEAN PLATELET VOLUME 10.8 FL (7.4-12.2); MONOCYTES # (AUTO) 0.37 10*3/UL (0.3-0.8); MONOCYTES % (AUTO) 4.7 % (5-15); NEUTROPHILS # (AUTO) 6.16 10*3/UL; NEUTROPHILS % (AUTO) 78.4 % (50-80); RED BLOOD COUNT 3.88 10^6/uL (4.20-5.40)
[2018-11-11 05:24] LABS: PLATELET MORPHOLOGY COMMENT NORMAL MORPHOLOGY (NORM); RBC MORPHOLOGY COMMENT NORMAL MORPHOLOGY (NORM); WBC MORPHOLOGY COMMENT NORMAL MORPHOLOGY (NORM)
[2018-11-11 05:29] LABS: BLOOD UREA NITROGEN 14 mg/dL (7-22)
--- NOTE | 2018-11-11 07:25 | PDOC ---
Abdomen/Flank HPI - General Chief Complaint: Abdomen Pain Stated Complaint: abdominal pain, nausea Date Seen by Provider: 11/10/18 Time Seen by Provider: 21:50 Source: POSITIVE: Patient, Other (Daughter) Exam Limitations: POSITIVE: No limitations Nurse's Notes Reviewed & Considered: Yes - History of Present Illness Initial Comments: The patient is a and 83-year-old female who is brought to the emergency room by her daughter. Patient complains of a 5 hour history of abdominal pain, primarily just right of the epigastrium. She states she's had some nausea and "dry heaves". The patient and her daughter state that her abdomen appeared "distended and hard" earlier this evening. Patient last ate around 4:30 PM and states that her symptoms began shortly thereafter. Patient has a history of Sauceda's esophagitis. No past history of abdominal surgery. Body Location Affected: REPORTS: Abdomen Timing: REPORTS: Abrupt, Constant, Getting Worse Duration: 4-6 hours (5 hours) Severity: Moderate Quality: REPORTS: "Pain" Abdominal Pain Onset Location: REPORTS: RUQ, RLQ, Epigastric Abdominal Pain Radiation: REPORTS: No radiation Context: REPORTS: None Modifying Factors: improves with: Nothing Associated Symptoms: REPORTS: Nausea Similar Symptoms Previously: No Recent Care Received: REPORTS: Denies Any Prior Injuries Related to Current Complaint?: No - Patient Home Medications Home Medications: Home Medications Calcium Carbonate/Vitamin D3 [Calcium 600 + Vit D 400 Caplet] 1 cap PO BID #60 tab 09/28/12 Travoprost (Benzalkonium) [Travatan 0.004% Eye Drop] 1 drp EACH EYE HS drp 01/16/13 Phenazopyridine HCl [Pyridium] 100 mg PO QD tab 04/26/14 SUMAtriptan Inj [Imitrex Inj] 6 mg SUBCUT ONCE #1 ml 08/26/15 Docusate Sodium [Stool Softener] 100 mg PO DAILY tab 11/05/15 Multivitamin [Daily Olinda] 1 tab PO DAILY tab 11/05/15 clobetasol 0.05 % topical cream 1 applic TOPICAL QHS #60 g 06/15/17 Beta Carot W/Vit E,C,Min Tab [Ocuvite Tab] 1 ea PO DAILY 12/26/17 conjugated estrogens 0.625 mg/gram vaginal cream 500 mg VAGINAL 3XW #30 g 05/04/18 omeprazole 40 mg capsule,delayed release 40 mg PO BID #180 cap 05/05/18 Trimethoprim 100 mg PO DAILY 05/08/18 Travoprost Ophth Soln 0.004% [Travatan Ophth Soln 0.004%] 1 drp EACH EYE BEDTIME bottle 05/09/18 triamcinolone acetonide 0.1 % topical cream 1 applic TOPICAL QD PRN #1 tube 05/25/18 gabapentin 300 mg capsule See Rx Instructions .ROUTE .COMPLEX #90 capsule 06/27/18 triazolam 0.25 mg tablet See Rx Instructions .ROUTE .COMPLEX #30 tablet 06/27/18 citalopram 10 mg tablet 10 mg PO QDAY #30 tab 07/07/18 lidocaine 5 % topical patch 1 patch TRANSDERM daily/prn #30 patch 07/07/18 oxycodone 20 mg tablet 20 mg PO Q8H PRN #90 tab 10/28/18 - Patient Allergies Allergies/Adverse Reactions: Allergies Allergy/AdvReac Type Severity Reaction Status Date / Time duloxetine [From Cymbalta] AdvReac Intermediate Trigeminal Verified 11/10/18 21 :40 Neuralgia codeine AdvReac NAUSEA Verified 11/10/18 21:40 Past Medical History - heen HEENT History: Glaucoma, Macular Degeneration, Cataracts, Dentures/Partials Additional HEENT History: TMJ Cardiovascular History: Hyperlipidemia Additional Cardiovasular History: HEART MURMUR Respiratory History: Pneumonia, Other (please comment) Additional Respiratory History: previous tobacco use, quit in 1967. SOB WITH ACTIVITY. SHALLOW BREATHER, HAD HOME O2 BUT STATES DIDN'T WORK FOR HER Gastrointestinal History: GERD Additional Gastrointestinal History: constipation / SAUCEDA'S ESOPHAGUS, blood in stool Genitourinary History: Recurrent UTI, Other (please comment) Additional Genitourinary History: CHRONIC URINARY PAIN Endocrine History: Denies History Musculoskeletal History: Arthritis, Osteoporosis, Fibromyalgia, Back Pain, Joint Pain Prosthesis or Implant: Yes (LEFT TKA, DENTAL) Additional Musculoskeletal History: limited ROM in shoulders. Neurological History: Migraines Blood Disorders: Anemia Additional Blood Disorders History: iron deficiency Psychiatric History: Denies History History of Sexually Transmitted Diseases: No Female Reproductive History: Denies History Obstetrical History: Denies History Cancer History: Denies History In Past Year Been Physically Harmed or Verbally Threatened: No History of MDRO: No History of Other Communicable Diseases: No Tobacco Use: Never Smoker Alcohol Use: None In the Past 12 Months, Have Used or Abuse Any Substance: None Previous Surgical History: Yes Type / Date of Surgery: COLONOSCOPY/ TONSILLECTOMY/LEFT TKA /EGD/ TRIAL STIMULATOR PLACEMENT, LEFT WRIST Anesthesia Reactions: No Malignant Hyperthermia: No Significant Family History: Heart disease, Cancer Past Medical History Reviewed: Reviewed - No Changes ROS - Limitations ROS Limitations: No Limitations Constitution: REPORTS: Denies Symptoms Cardiovascular: REPORTS: Denies Cardiac Symptoms Respiratory: REPORTS: Denies Resp Symptoms Neurological: REPORTS: Denies Neuro Symptoms Gastrointestinal: REPORTS: Abdominal Pain, Nausea Endocrine: REPORTS: Denies Symptoms Musculoskeletal: REPORTS: Denies MS Symptoms Genitourinary: REPORTS: Denies Symptoms Eyes: REPORTS: Denies Symptoms ENT: REPORTS: Denies Symptoms Skin: REPORTS: Denies Skin Symptoms Lympathic: REPORTS: Denies Lympathic Symptoms Immunologic: POSITIVE: Denies Symptoms Psychiatric: POSITIVE: Denies Psych Symptoms Abdominal/Flank Pain PE - General Appearance General Appearance: POSITIVE: Alert, Cooperative, No Acute Distress, No Evidence of Trauma - HEENT HEENT: POSITIVE: Head Inspection Nml, Eyes Inspection Nml, Ears Inspection Nml, Nose Inspection Nml, Oral/Dental Inspect. Nml, Pharynx Inspect. Nml, PERRL, EOMI - Neck Neck: POSITIVE: Normal Inspection, No Apparent Injury - Respiratory Respiratory: POSITIVE: No Respiratory Distress, Breath Sounds Normal, Chest Non- Tender - Cardiovascular Cardiovascular: POSITIVE: Regular Rate and Rhythm, Heart Sounds Normal, Equal Pulses, Strong Pulses Peripheral Pulses: Radial (R): 2+, Radial (L): 2+ - Abdomen Abdomen: Soft: (All Quadrants), Normal Bowel Sounds: (All Quadrants), Denies Tenderness: (LUQ), (LLQ), No Splenomegaly: (All Quadrants), No Hepatomegaly: (All Quadrants), No Guarding: (All Quadrants), No Rebound: (All Quadrants), No Palpable Pulse: (All Quadrants), No Palpabale Mass: (All Quadrants), No Distention: (All Quadrants), No Rigidity: (All Quadrants), Tenderness Noted: (RUQ), (RLQ) Additional Abdominal Details: Abdominal examination shows bowel sounds to be active. Patient has pain on direct palpation right upper quadrant, especially just right of the epigastrium. Less so right lower quadrant. No masses, organomegaly or rebound. - Back Back: POSITIVE: Normal Inspection. 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 The gallbladder is distended with mild intrahepatic and extrahepatic biliary ductal dilation. Lab Results Reviewed by Me: Yes CBC and BMP: 11/11/18 04:20 11/11/18 04:20 Lab Results:: Laboratory Results 11/10/18 11/10/18 11/10/18 21:45 21:45 22:05 WBC 7.18 RBC 4.40 Hgb 11.4 L Hct 36.6 L MCV 83.2 MCH 25.9 L MCHC 31.1 L RDW Std Deviation 60.0 H RDW Coeff of Abdulaziz 20.9 H Plt Count 309 MPV 10.2 Immature Gran % (Auto) 0.1 Neut % (Auto) 68.0 Lymph % (Auto) 25.3 [place] % (Auto) 5.3 Eos % (Auto) 0.7 Baso % (Auto) 0.6 Immature Gran # (Auto) 0.01 Neut # (Auto) 4.88 Lymph # (Auto) 1.82 [place] # (Auto) 0.38 Eos # (Auto) 0.05 Baso # (Auto) 0.04 WBC Morphology Comment Normal morphology Plt Morphology Comment Normal morphology RBC Morph Comment Normal morphology Sodium 140 Potassium 4.2 Chloride 100 Carbon Dioxide 28 Anion Gap 12 BUN 18 Creatinine 0.8 BUN/Creatinine Ratio 22.50 H Glucose 146 H Calculated Osmolality 294.0 H Calcium 9.4 Total Bilirubin 0.4 AST 37 ALT 17 Alkaline Phosphatase 59 Total Protein 6.7 Albumin 4.0 Globulin 2.7 Albumin/Globulin Ratio 1.40 Amylase 70 Lipase 57 Ur Collection Type Cath specimen Urine Color Yellow Urine Clarity Clear Urine pH 7.5 Ur Specific [place] 1.015 Urine Protein Negative Urine Glucose (UA) Negative Urine Ketones Negative Urine Occult Blood Trace-intact H Urine Nitrate Negative Urine Bilirubin Negative Urine Urobilinogen 0.2 Ur Leukocyte Esterase Negative Ur Culture Indicated? Culture not set - Patient's Progress Pain Medication Addressed: POSITIVE: Yes (Patient given a total of 8 mg of morphine in the emergency room in two 4 mg aliquots.) School/Work Release Addressed: POSITIVE: Not Applicable Re-examine Time: 22:50 Re-Examine Comment: Patient feeling some better at discharge. Patient and family advised that the patient may be having biliary colic, although not completely sure what the source of her abdominal pain is. Case discussed with Dr. Vasquez at [phone] Shearer, hospitalist at [phone]. Patient admitted for further evaluation and treatment. Status: POSITIVE: Unchanged, Re-Examined - Consult Consult (If Yes, Name of Consulting MD & Time Called): Yes (Dr. Noyola, [phone]; [phone] ) Consulting MD will see pt:: POSITIVE: [facility] [place]mit Counseled: POSITIVE: Patient, Family, RE: Lab Results, RE: Radiology Results, RE: DX, RE: Need for F/U Patient Care Time - Estimated PCT Patient Care Time (In Minutes): 55 Vital Signs - Recent Vital Signs Vital Signs: Vital Signs (Last 8 hours) Temp Pulse Pulse Resp BP Pulse Ox Pulse Ox 11/11/18 05:47 94 11/11/18 05:40 94 11/11/18 05:00 98.1 F 73 73 18 133/56 97 97 11/11/18 03:00 71 97 11/11/18 01:00 77 98 11/11/18 00:35 98.1 F 83 20 145/57 96 11/11/18 00:23 20 - VS Reviewed Vital Signs Reviewed: Yes Discharge Clinical Impression: Abdominal pain Discharge Disposition: Admit to Inpatient Condition: Fair Date Decision to Admit to Inpatient: 11/10/18 Time Decision to Admit to Inpatient: 23:50
[2018-11-11] MEDS: MORPHINE SULFATE 2 MG/1 ML IVP PRN ×3 (08:38→20:47)
[2018-11-11] MEDS: PANTOPRAZOLE IV 40 MG VIAL IVP SCH (08:39)
--- NOTE | 2018-11-11 10:30 | DI ---
US Abdomen Complete 11/11/2018 8:00 AM [place] [facility] [place]abdominal pain, question pancreatitis, CBD dilatio Comparison: CT abdomen/pelvis 11/10/2018, 01/15/2017. Procedure: Minor scale and color doppler bilateral upper quadrant ultrasound was performed. Findings: Evaluation is somewhat limited by the inability of the patient to tolerate positioning. The liver is normal in size, echogenicity, and echotexture. There are no focal lesions visualized. The g allbladder is moderately distended, without evidence of stones or pericholecystic fluid. There is a n ormal gallbladder wall measuring 1 mm. There is no sonographic [place]'s sign. The common duct measure s 9 mm. There is no intrahepatic biliary ductal dilatation. There is no free fluid seen within the he patorenal space. Imaged portions of the pancreas are grossly unremarkable. The spleen demonstrates normal size and mor phology and measures 8.1 cm. The right kidney measures 8.2 cm in length with no sonographic evidence of hydronephrosis, calculi, o r mass. The left kidney measures 8.7 cm with a 4.4 x 4.0 x 4.2 cm simple cyst in the upper pole and n o sonographic evidence of hydronephrosis or calculi. The imaged portions of the abdominal aorta demonstrate normal caliber with atheromatous calcification s and distal tapering. The imaged portions of the IVC demonstrate normal course and caliber. Impression: 1. Moderately distended gallbladder. The common duct measures 9 mm in diameter. There is no cholelith iasis or sonographic evidence of acute cholecystitis. The gallbladder was moderately distended on nita or imaging dating from 01/15/2017. 2. 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 3. Simple left renal cyst.
--- NOTE | 2018-11-11 10:55 | PDOC ---
HPI - History of Present Illness Date of Service: 11/11/18 Time of Service: 10:48 Chief Complaint: Abdominal pain History of Present Illness: This very pleasant 83-year-old female with osteoarthritis, history of GI bleed, amongst other medical issues who comes in Today with her daughter here with complaints of sudden onset of epigastric pain with nausea. The patient did not vomit. She's never had this happen before. No fevers, chills. She's never had problems with her gallbladder before. CT scan showed a distended gallbladder, but LFTs were normal and total bilirubin was normal as well. She did not have any reports on her, and bile duct on that and we got an ultrasound this morning that showed no evidence of cholelithiasis, no cholecystitis, and a common bile duct that was normal caliber. Aside from coming here and there were no other interventions tried. She states it's better today, but she still has soreness in her epigastric area. Past Medical History Medical History: 1. GERD-with Gutierrez's esophagus. 2. Osteoporosis. 3. Lumbar spondylosis. 4. Osteoarthritis. 5. Hx of hyperlipidemia. 6. Gutierrez's esophagitis. 7. macular degeneration. 8. chronic interstitial cystitis with recurrent UTI's. 9. Anemia. 10. History of colon polyps Surgical History: 1. colonoscopies and EGD's-multiple of each. most recent colonoscopy had a tubular adenoma in 2009. Patient reports she had an upper endoscopy and lower endoscopy within the last 3 years. 2. left knee surgery. 3. spinal stimulator with subsequent removal ( this was a stimulator electrode test. patient then had a blood patch). 4. hand surgery. Family History: Reviewed an Not Pertinent Pertinent Family History: significant for heart disease in her father Past Social History: quit smoking in the , no alcohol, has children that are healthy. ambulates with walker and lives independently in the [facility]. Her daughter helps her with her healthcare. She has 4 healthy children Tobacco Use: Never Smoker In the Past 12 Months, Have Used or Abuse Any of the Following Substance: None Alcohol Use: None Medication / Allergies Home Medications: Home Medications Medication Instructions Recorded Confirmed Calcium Carbonate/Vitamin D3 1 cap PO BID #60 tab 09/28/12 11/10/18 [Calcium 600 + Vit D 400 Caplet] Travoprost (Benzalkonium) 1 drp EACH EYE HS drp 01/16/13 11/10/18 [Travatan 0.004% Eye Drop] Phenazopyridine HCl [Pyridium] 100 mg PO QD tab 04/26/14 11/10/18 SUMAtriptan Inj [Imitrex Inj] 6 mg SUBCUT ONCE #1 ml 08/26/15 11/10/18 Docusate Sodium [Stool Softener] 100 mg PO DAILY tab 11/05/15 11/10/18 Multivitamin [Daily Olinda] 1 tab PO DAILY tab 11/05/15 11/10/18 clobetasol 0.05 % topical cream 1 applic TOPICAL QHS #60 g 06/15/17 11/10/18 Beta Carot W/Vit E,C,Min Tab 1 ea PO DAILY 12/26/17 11/10/18 [Ocuvite Tab] conjugated estrogens 0.625 mg/gram 500 mg VAGINAL 3XW #30 g 05/04/18 11/10/18 vaginal cream omeprazole 40 mg capsule,delayed 40 mg PO BID #180 cap 05/05/18 11/10/18 release Trimethoprim 100 mg PO DAILY 05/08/18 11/10/18 Travoprost Ophth Soln 0.004% 1 drp EACH EYE BEDTIME bottle 05/09/18 11/10/18 [Travatan Ophth Soln 0.004%] triamcinolone acetonide 0.1 % 1 applic TOPICAL QD PRN #1 tube 05/25/18 11/10/18 topical cream gabapentin 300 mg capsule See Rx Instructions .ROUTE 06/27/18 11/10/18 .COMPLEX #90 capsule triazolam 0.25 mg tablet See Rx Instructions .ROUTE 06/27/18 11/10/18 .COMPLEX #30 tablet citalopram 10 mg tablet 10 mg PO QDAY #30 tab 07/07/18 11/10/18 lidocaine 5 % topical patch 1 patch TRANSDERM daily/prn #30 07/07/18 11/10/18 patch oxycodone 20 mg tablet 20 mg PO Q8H PRN #90 tab 10/28/18 11/10/18 Allergies/Adverse Reactions: Allergies Allergy/AdvReac Type Severity Reaction Status Date / Time duloxetine [From Cymbalta] AdvReac Intermediate Trigeminal Verified 11/10/18 21:40 Neuralgia codeine AdvReac NAUSEA Verified 11/10/18 21:40 Review of Systems - Review of Systems All Systems: Reviewed & No Additional Complaints Except as Stated (I did a 12 point review systems and it was negative other than that discussed below and in the history of present illness.) - Musculoskeletal Musculoskeletal: REPORTS: Joint Pain - Shoulders (Chronic) Exam - Vitals Vital Signs: Vital Signs Temperature 97.8 F Temperature Source Temporal Artery Scan Pulse Rate [Pulse Oximeter] 85 Pulse Rate [right ring finger] 85 Respiratory Rate 20 Blood Pressure [Left Arm] 136/58 Pulse Ox [right ring finger] 94 Pulse Ox 94 Oxygen Flow Rate [right ring 2 finger] Oxygen Flow Rate 2 Oxygen Delivery Method [right Nasal Cannula ring finger] Oxygen Delivery Method Nasal Cannula Height 5 ft 4 in Weight 124 lb 6.4 oz - General General Appearance: No Acute Distress, Cooperative - Head Head Exam: Normal Inspection, Normocephalic, Atraumatic - Eye Eye Exam: POSITIVE: No Scleral Icterus - ENT ENT Exam: POSITIVE: Mucous Membranes Moist - Neck Neck Exam: Normal Inspection, No Tenderness, No Lymphadenopathy, No Thyromegaly, JVP is not Raised - Respiratory Respiratory Exam: POSITIVE: Clear to Auscultation - Bilaterally, Breathing Non Labored - Cardiovascular Cardiovascular Exam: POSITIVE: RRR, No Clicks, No Gallops, No Rubs, Systolic Murmur (Best heard in the apex of the heart, probably a mitral valve issue) - GI/Abdominal GI/Abdominal Exam: POSITIVE: Normal Bowel Sounds, Non Tender, Non Distended, Soft - Rectal Rectal Exam: POSITIVE: Deferred - External Exam: POSITIVE: Deferred Exam: POSITIVE: Deferred - Extremities Extremities Exam: POSITIVE: No Clubbing Present, No Edema Present, No Cyanosis Present - Neurological Neurological Exam: POSITIVE: Alert, Oriented x 3, No Facial Droop, Speech Intact / Clear, Moves All Extremities Equally - Psychiatric Psychiatric Exam: POSITIVE: Normal Affect, Normal Mood Results - Labs CBC and BMP: 11/11/18 04:20 11/11/18 04:20 Additional Lab Results: Laboratory Results 11/10/18 11/10/18 11/10/18 21:45 21:45 22:05 WBC 7.18 RBC 4.40 Hgb 11.4 L Hct 36.6 L MCV 83.2 MCH 25.9 L MCHC 31.1 L RDW Std Deviation 60.0 H RDW Coeff of Abdulaziz 20.9 H Plt Count 309 MPV 10.2 Immature Gran % (Auto) 0.1 Neut % (Auto) 68.0 Lymph % (Auto) 25.3 [place] % (Auto) 5.3 Eos % (Auto) 0.7 Baso % (Auto) 0.6 Immature Gran # (Auto) 0.01 Neut # (Auto) 4.88 Lymph # (Auto) 1.82 [place] # (Auto) 0.38 Eos # (Auto) 0.05 Baso # (Auto) 0.04 WBC Morphology Comment Normal morphology Plt Morphology Comment Normal morphology RBC Morph Comment Normal morphology PT INR APTT Sodium 140 Potassium 4.2 Chloride 100 Carbon Dioxide 28 Anion Gap 12 BUN 18 Creatinine 0.8 BUN/Creatinine Ratio 22.50 H Glucose 146 H Calculated Osmolality 294.0 H Calcium 9.4 Total Bilirubin 0.4 AST 37 ALT 17 Alkaline Phosphatase 59 Troponin I Total Protein 6.7 Albumin 4.0 Globulin 2.7 Albumin/Globulin Ratio 1.40 Amylase 70 Lipase 57 Ur Collection Type Cath specimen Urine Color Yellow Urine Clarity Clear Urine pH 7.5 Ur Specific [place] 1.015 Urine Protein Negative Urine Glucose (UA) Negative Urine Ketones Negative Urine Occult Blood Trace-intact H Urine Nitrate Negative Urine Bilirubin Negative Urine Urobilinogen 0.2 Ur Leukocyte Esterase Negative Ur Culture Indicated? Culture not set 11/11/18 11/11/18 11/11/18 01:05 04:20 04:20 WBC 7.85 RBC 3.88 L Hgb 10.0 L Hct 32.7 L MCV 84.3 MCH 25.8 L MCHC 30.6 L RDW Std Deviation 60.1 H RDW Coeff of Abdulaziz 20.9 H Plt Count 270 MPV 10.8 Immature Gran % (Auto) 0.3 Neut % (Auto) 78.4 Lymph % (Auto) 15.9 [place] % (Auto) 4.7 L Eos % (Auto) 0.3 Baso % (Auto) 0.4 Immature Gran # (Auto) 0.02 Neut # (Auto) 6.16 Lymph # (Auto) 1.25 [place] # (Auto) 0.37 Eos # (Auto) 0.02 Baso # (Auto) 0.03 WBC Morphology Comment Normal morphology Plt Morphology Comment Normal morphology RBC Morph Comment Normal morphology PT INR APTT 25.9 Sodium Potassium Chloride Carbon Dioxide Anion Gap BUN Creatinine BUN/Creatinine Ratio Glucose Calculated Osmolality Calcium Total Bilirubin AST ALT Alkaline Phosphatase Troponin I < 0.012 Total Protein Albumin Globulin Albumin/Globulin Ratio Amylase Lipase Ur Collection Type Urine Color Urine Clarity Urine pH Ur Specific [place] Urine Protein Urine Glucose (UA) Urine Ketones Urine Occult Blood Urine Nitrate Urine Bilirubin Urine Urobilinogen Ur Leukocyte Esterase Ur Culture Indicated? 11/11/18 11/11/18 11/11/18 04:20 04:20 05:00 WBC RBC Hgb Hct MCV MCH MCHC RDW Std Deviation RDW Coeff of Abdulaziz Plt Count MPV Immature Gran % (Auto) Neut % (Auto) Lymph % (Auto) [place] % (Auto) Eos % (Auto) Baso % (Auto) Immature Gran # (Auto) Neut # (Auto) Lymph # (Auto) [place] # (Auto) Eos # (Auto) Baso # (Auto) WBC Morphology Comment Plt Morphology Comment RBC Morph Comment PT 11.9 INR 1.03 APTT Sodium 141 Potassium 4.7 Chloride 104 Carbon Dioxide 28 Anion Gap 9 BUN 14 Creatinine 0.7 BUN/Creatinine Ratio 20.00 Glucose 101 Calculated Osmolality 292.0 Calcium 8.8 Total Bilirubin 0.3 AST 18 ALT 19 Alkaline Phosphatase 42 Troponin I Total Protein 5.2 L Albumin 3.0 L Globulin 2.2 L Albumin/Globulin Ratio 1.30 Amylase Lipase 32 Ur Collection Type Urine Color Urine Clarity Urine pH Ur Specific [place] Urine Protein Urine Glucose (UA) Urine Ketones Urine Occult Blood Urine Nitrate Urine Bilirubin Urine Urobilinogen Ur Leukocyte Esterase Ur Culture Indicated? - EKG Data -: EKG Interpreted by Me Rate: Normal EKG Shows Normal: Sinus Rhythm - Imaging Status: Image Reviewed by Me (I looked at the CT scan and read the results from the radiologist.) Assessment and Plan - Patient Problems (1) Epigastric abdominal pain Current Visit: Yes Status: Acute Code(s): R10.13 - Epigastric pain (2) Primary osteoarthritis of shoulder Current Visit: No Status: Chronic Onset Date: 07/27/14 Code(s): M19.019 - Primary osteoarthritis, unspecified shoulder Qualifiers: Laterality: bilateral Qualified Code(s): M19.011 - Primary osteoarthritis, right shoulder; M19.011 - Primary osteoarthritis, right shoulder; M19.012 - Primary osteoarthritis, left shoulder; M19.012 - Primary osteoarthritis, left shoulder (3) History of recurrent urinary tract infection Current Visit: Yes Status: Acute Code(s): Z87.440 - Personal history of urinary (tract) infections (4) Chronic pain syndrome Current Visit: Yes Status: Chronic Onset Date: 12/28/16 Code(s): G89.4 - Chronic pain syndrome (5) Iron deficiency anemia Current Visit: Yes Status: Chronic Code(s): D50.9 - Iron deficiency anemia, unspecified Qualifiers: Iron deficiency anemia type: unspecified iron deficiency Qualified Code(s): D50.9 - Iron deficiency anemia, unspecified (6) Barretts esophagus Current Visit: Yes Status: Chronic Priority: Low Code(s): K22.70 - Gutierrez's esophagus without dysplasia Qualifiers: Gutierrez's esophagus type: with dysplasia of unspecified degree Qualified Code(s): K22.719 - Gutierrez's esophagus with dysplasia, unspecified; K22.719 - Gutierrez's esophagus with dysplasia, unspecified; K22.719 - Gutierrez's esophagus with dysplasia, unspecified; K22.71 - Gutierrez's esophagus with dysplasia - Assessment / Plan Additional Assessment/Plan Details: admit given ultrasound results this morning, will get HIDA scan. Possible biliary dyskinesia pain medications and antiemetics hold antibiotics for now for prevention of UTI labs in AM patient is DO NOT RESUSITATE.
[2018-11-11] MEDS ORDERED: TRIAZOLAM 0.25 MG PO PRN (21:00)
--- NOTE | 2018-11-11 22:07 | DI ---
LYNETTE CAREY 11/11/2018 10:47 AM History: [facility] [place]a and vomiting, question biliary dyskinesia Comparison: None. Radiopharmaceutical: Tc99m mebrofenin 7.0 mCi IV Pharmaceutical: Kinevac (CCK) 1.5 micrograms IV. Procedure: Following intravenous radiopharmaceutical injection, dynamic anterior imaging of the abdom en was obtained for 60 minutes. The patient was then intravenously injected with Kinevac for a total of 1.50 mcg. The patient experienced extreme nausea and abdominal pain after starting the Kinevac dri p and could not tolerate the full procedure. Findings: There is prompt blood pool clearance with homogeneous uptake of radiotracer throughout the liver. The common bile duct and the gallbladder are visualized by 8 minutes. The small bowel is visua lized by 34 minutes. No enterogastric reflux is visualized. The patient experienced extreme nausea and abdominal pain after starting the Kinevac drip and could n ot tolerate the full procedure. Impression: 1. Nondiagnostic examination. The patient experienced extreme nausea and abdominal pain after startin g the Kinevac, requiring discontinuation of the procedure.
[2018-11-12] MEDS: MORPHINE SULFATE 2 MG/1 ML IVP PRN (03:05)
[2018-11-12 05:16] VITALS: TEMP 98.1
[2018-11-12 05:20] LABS: BASOPHILS # (AUTO) 0.05 10*3/UL; BASOPHILS % (AUTO) 0.9 % (0-1); EOSINOPHILS # (AUTO) 0.09 10*3/UL; EOSINOPHILS % (AUTO) 1.7 % (0-8); Hematocrit [HCT] 35.3 % (37.0-47.0); Hemoglobin [HGB] 10.6 g/dL (12.0-16.0); LYMPHOCYTES # (AUTO) 1.82 10*3/uL; MEAN CORPUSCULAR HEMOGLOBIN 25.7 PG (27-31); MEAN CORPUSCULAR VOLUME 85.5 FL (81-99); MEAN PLATELET VOLUME 11.2 FL (7.4-12.2); MONOCYTES # (AUTO) 0.37 10*3/UL (0.3-0.8); MONOCYTES % (AUTO) 6.9 % (5-15); NEUTROPHILS # (AUTO) 3.01 10*3/UL; NEUTROPHILS % (AUTO) 56.3 % (50-80); RED BLOOD COUNT 4.13 10^6/uL (4.20-5.40)
[2018-11-12 05:32] LABS: PLATELET MORPHOLOGY COMMENT NORMAL MORPHOLOGY (NORM); RBC MORPHOLOGY COMMENT NORMAL MORPHOLOGY (NORM); WBC MORPHOLOGY COMMENT NORMAL MORPHOLOGY (NORM)
[2018-11-12 05:34] LABS: BLOOD UREA NITROGEN 10 mg/dL (7-22); BUN/CREATININE RATIO 14.28 (6-20); SERUM ALBUMIN 3.7 g/dL (3.5-4.8)
[2018-11-12] MEDS: Sodium Chloride 0.9% 1,000 ML PRIMARY IV SCH (08:00)
[2018-11-12] MEDS: PANTOPRAZOLE IV 40 MG VIAL IVP SCH (08:00)
[2018-11-12 09:05] VITALS: BP 151/44; RESP 18
[2018-11-12] MEDS ORDERED: GABAPENTIN 300 MG CAPSULE PO ONE (10:08)
[2018-11-12 11:17] VITALS: O2SAT 97
--- NOTE | 2018-11-12 12:37 | DCSUMMARY ---
Hospitalization Summary Admit Date: 11/11/2018 Discharge Date: 11/12/18 Primary Diagnosis:: nausea of unclear etiology, resolved Hospital Course: This very pleasant 83-year-old female that was admitted on 11/11/2018 just slightly after midnight, with acute onset of nausea. It was presumed that this might be gallbladder related as it was distended on CT scan. We did additional workup including an ultrasound that showed no evidence of gallbladder wall thickening, common bile duct that was of normal caliber and not obstructed, liver enzymes that never changed and total bilirubin that was normal, and no gallstones noted. We tried to do a HIDA scan, but the patient could not tolerate imaging after cholecystokinin administration. She had severe nausea at that point. I spoke with surgery and we will have the patient follow with surgery and outpatient clinic to examine and perhaps even consider repeating a HIDA scan if symptoms return. I expected that this would probably be consistent with acute cholecystitis or biliary dyskinesia, the patient's symptoms and diagnostic testing resolved faster than expected and do not prove definitively whether the patient has biliary dyskinesia. I expected a little longer hospital stay but due to these issues and improvement in symptoms, I think the patient is stable to go home. Today, the patient felt anxious, I think she was having some withdrawal from her oxycodone and Neurontin. We resumed those medications and she felt much better within 2 hours. She was able to tolerate a bagel and a banana prior to discharge. No chest pain, shortness breath, nausea or vomiting today. She is "ready to go home". Spoke with all her children who are present at bedside regarding the discharge plan and they all agreed with the plan. Assessment and Plan: 1. As per discharge assessments noted 2. Disposition: Patient is discharged home. 3. Condition on discharge, stable and improved. 4. Diet: regular diet, but I told the patient to avoid fatty foods. I told her to increase her vegetable content 5. Activities: resume normal activities 6. Follow-Up: 1. Primary care physician in one week 2. Surgery in 1 week 7. Medications at the Time of Discharge: Home Medications Medication Instructions Recorded Confirmed Calcium Carbonate/Vitamin D3 1 cap PO BID #60 tab 09/28/12 11/10/18 [Calcium 600 + Vit D 400 Caplet] Docusate Sodium [Stool Softener] 100 mg PO DAILY tab 11/05/15 11/10/18 Multivitamin [Daily Olinda] 1 tab PO DAILY tab 11/05/15 11/10/18 Beta Carot W/Vit E,C,Min Tab 1 ea PO DAILY 12/26/17 11/10/18 [Ocuvite Tab] conjugated estrogens 0.625 mg/gram 500 mg VAGINAL 3XW #30 g 05/04/18 11/10/18 vaginal cream omeprazole 40 mg capsule,delayed 40 mg PO BID #180 cap 05/05/18 11/10/18 release Travoprost Ophth Soln 0.004% 1 drp EACH EYE BEDTIME bottle 05/09/18 11/10/18 [Travatan Ophth Soln 0.004%] gabapentin 300 mg capsule See Rx Instructions .ROUTE 06/27/18 11/10/18 .COMPLEX #90 capsule triazolam 0.25 mg tablet See Rx Instructions .ROUTE 06/27/18 11/10/18 .COMPLEX #30 tablet lidocaine 5 % topical patch 1 patch TRANSDERM daily/prn #30 07/07/18 11/10/18 patch oxycodone 20 mg tablet 20 mg PO Q8H PRN #90 tab 10/28/18 11/10/18 8. Time, care, counseling and coordination of care for this discharge is greater than 30 minutes. Exam - Vitals Vital Signs: Vital Signs Temperature 98.1 F Temperature Source Temporal Artery Scan Pulse Rate [Pulse Oximeter] 72 Pulse Rate [right ring finger] 85 Pulse Rate 91 Respiratory Rate 18 Blood Pressure [Left Radial 151/44 Artery] Blood Pressure [Left Arm] 140/54 Pulse Ox [right ring finger] 97 Pulse Ox 98 Oxygen Flow Rate [right ring 2 finger] Oxygen Flow Rate 2 Oxygen Delivery Method [right Nasal Cannula ring finger] Oxygen Delivery Method Nasal Cannula Height 5 ft 4 in Weight 123 lb - General General Appearance: No Acute Distress, Cooperative - Head Head Exam: Normal Inspection, Normocephalic, Atraumatic - Eye Eye Exam: POSITIVE: No Scleral Icterus - ENT ENT Exam: POSITIVE: Mucous Membranes Moist - Neck Neck Exam: JVP is not Raised - Respiratory Respiratory Exam: POSITIVE: Clear to Auscultation - Bilaterally, Breathing Non Labored - Cardiovascular Cardiovascular Exam: POSITIVE: RRR, No Murmur, No Clicks, No Gallops, No Rubs, No JVD - GI/Abdominal GI/Abdominal Exam: POSITIVE: Normal Bowel Sounds, Non Tender, Non Distended, Soft - Extremities Extremities Exam: POSITIVE: No Clubbing Present, No Edema Present, No Cyanosis Present - Neurological Neurological Exam: POSITIVE: Alert, Oriented x 3, No Facial Droop, Speech Intact / Clear, Moves All Extremities Equally Data Peritnent Studies: Laboratory Results 11/12/18 11/12/18 04:30 04:30 WBC 5.35 RBC 4.13 L Hgb 10.6 L Hct 35.3 L MCV 85.5 MCH 25.7 L MCHC 30.0 L RDW Std Deviation 64.1 H RDW Coeff of Abdulaziz 21.4 H Plt Count 251 MPV 11.2 Immature Gran % (Auto) 0.2 Neut % (Auto) 56.3 Lymph % (Auto) 34.0 [place] % (Auto) 6.9 Eos % (Auto) 1.7 Baso % (Auto) 0.9 Immature Gran # (Auto) 0.01 Neut # (Auto) 3.01 Lymph # (Auto) 1.82 [place] # (Auto) 0.37 Eos # (Auto) 0.09 Baso # (Auto) 0.05 WBC Morphology Comment Normal morphology Plt Morphology Comment Normal morphology RBC Morph Comment Normal morphology Sodium 142 Potassium 4.3 Chloride 104 Carbon Dioxide 26 Anion Gap 12 BUN 10 Creatinine 0.7 BUN/Creatinine Ratio 14.28 Glucose 98 Calculated Osmolality 292.0 Calcium 9.2 Total Bilirubin 0.6 D AST 24 ALT 22 Alkaline Phosphatase 52 Total Protein 6.0 L Albumin 3.7 Globulin 2.3 L Albumin/Globulin Ratio 1.60 Procedures: [address] [facility]. [facility] [place] [address] PH: DD: [phone] FAX: [phone] ~DIAGNOSTIC IMAGING REPORT~ Patient: Cristela Blanca : 1935 Sex: F Age: 83 Exam Name: LYNETTE CAREY Exam Date: 11/11/18 Report # : [id number] CPT Code: 17295 EMR/MR #: [id number] Ordering: ALEXANDER DOAN Admiting: ALEXANDER DOAN DO Primary: Angelita Woody APRN. Attending: ALEXANDER DOAN DO Signed LYNETTE CAREY 11/11/2018 10:47 AM History: [facility] [place] ^nausea and vomiting, question biliary dyskinesia Comparison: None. Radiopharmaceutical: Tc99m mebrofenin 7.0 mCi IV Pharmaceutical: Kinevac (CCK) 1.5 micrograms IV. Procedure: Following intravenous radiopharmaceutical injection, dynamic anterior imaging of the abdomen was obtained for 60 minutes. The patient was then intravenously injected with Kinevac for a total of 1.50 mcg. The patient experienced extreme nausea and abdominal pain after starting the Kinevac drip and could not tolerate the full procedure. Findings: There is prompt blood pool clearance with homogeneous uptake of radiotracer throughout the liver. The common bile duct and the gallbladder are visualized by 8 minutes. The small bowel is visualized by 34 minutes. No enterogastric reflux is visualized. The patient experienced extreme nausea and abdominal pain after starting the Kinevac drip and could not tolerate the full procedure. Impression: 1. Nondiagnostic examination. The patient experienced extreme nausea and abdominal pain after starting the Kinevac, requiring discontinuation of the procedure. Dictated By: 11/11/18 4913 ROSA COLBERT MD. Signed By: 11/11/186 ROSA COLBERT MD. [address] [facility] [place] [address] PH: DD: [phone] FAX: [phone] ~DIAGNOSTIC IMAGING REPORT~ Patient: Cristela Blanca : 1935 Sex: F Age: 83 Exam Name: US Abdomen Complete Exam Date: 11/11/18 Report # : [id number] CPT Code: 49872 EMR/MR #: [id number] Ordering: ALEXANDER DOAN Admiting: ALEXANDER DOAN DO Primary: Angelita Woody APRN. Attending: ALEXANDER DOAN DO ---- Signed US Abdomen Complete 11/11/2018 8:00 AM History: [facility] [place] ^abdominal pain, question pancreatitis, CBD dilatio Comparison: CT abdomen/pelvis 11/10/2018, 01/15/2017. Procedure: Minor scale and color doppler bilateral upper quadrant ultrasound was performed. Findings: Evaluation is somewhat limited by the inability of the patient to tolerate positioning. The liver is normal in size, echogenicity, and ech otexture. There are no focal lesions visualized. The gallbladder is moderately distended, without evidence of stones or pericholecystic fluid. There is a normal gallbladder wall measuring 1 mm. There is no sonographic Toledo's sign. The common duct measures 9 mm. There is no intrahepatic biliary ductal dilatation. There is no free fluid seen within the hepatorenal space. Imaged portions of the pancreas are grossly unremarkable. The spleen demonstrates normal size and morphology and measures 8.1 cm. The right kidney measures 8.2 cm in length with no sonographic evidence of hydronephrosis, calculi, or mass. The left kidney measures 8.7 cm with a 4.4 x 4.0 x 4.2 cm simple cyst in the upper pole and no sonographic evidence of hydronephrosis or calculi. The imaged portions of the abdominal aorta demonstrate normal caliber with atheromatous calcifications and distal tapering. The imaged portions of the IVC demonstrate normal course and caliber. Impression: 1. Moderately distended gallbladder. The common duct measures 9 mm in diameter. There is no cholelithiasis or sonographic evidence of acute cholecystitis. The gallbladder was moderately distended on prior imaging dating from 01/15/2017. 2. 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 3. Simple left renal cyst. Dictated By: 11/11/18 1015 ROSA COLBERT MD. Signed By: 11/11/18 1030 ROSA COLBERT MD. [address] Medicine[address] [facility] [place] [address] PH: DD: [phone] FAX: [phone] ~DIAGNOSTIC IMAGING REPORT~ Patient: Cristela Blanca : 1935 Sex: F Age: 83 Exam Name: CT Abdomen/Pelvis W Contrast Exam Date: 11/10/18 Report # : [id number] CPT Code: 88925 EMR/MR #: [id number] Ordering: JOSEF HUGGINS Admiting: Primary: Angelita Woody APRN. Attending: Signed EXAM: CT Abdomen and Pelvis With Intravenous Contrast CLINICAL HISTORY: ITS.REASON Abdominal Pain Physician Notes: Tech Comments: TECHNIQUE: Axial computed tomography images of the abdomen and pelvis with intravenous contrast. COMPARISON: CT dated 01/14/2017. FINDINGS: Lung bases: Mild bibasilar presumed atelectasis. Mediastinum: Moderate wall thickening the distal esophagus, otherwise not well characterized. ABDOMEN: Liver: See below. Gallbladder and bile ducts: Distended gallbladder and mild intrahepatic and extra hepatic biliary ductal dilatation , nonspecific finding. No calcified stones. Pancreas: Unremarkable. No evidence of mass. No ductal dilation. Spleen: Unremarkable. No splenomegaly. Adrenals: Unremarkable. No mass. Kidneys and ureters: 12 mm right renal cyst, previously measuring 10 mm. 45 mm right renal cyst, unchanged. Subcentimeter right renal cysts are unchanged. No hydronephrosis. Stomach and bowel: Moderate amount of stool throughout the colon. No obstruction. No mucosal thickening. PELVIS: Appendix: Thin tubular structure inferior to the cecum is favored to represent a normal appendix, however, it is not identified with certainty. Bladder: Unremarkable. No evidence of mass. Reproductive: Unremarkable as visualized. ABDOMEN and PELVIS: Intraperitoneal space: Trace free fluid in the pelvis is nonspecific. No free air. Bones/joints: Scoliosis. Soft tissues: Unremarkable. Vasculature: Unremarkable. No abdominal aortic aneurysm. Lymph nodes: Unremarkable. No enlarged lymph nodes. IMPRESSION: 1. Moderate wall thickening the distal esophagus, otherwise not well characterized. This can be further characterized by esophagram if not previously performed. 2. Distended gallbladder and mild intrahepatic and extra hepatic biliary ductal dilatation , nonspecific finding. 3. Trace free fluid in the pelvis is nonspecific. Dictated By: Josef Flores MD Signed By: 11/10/18 2334 Josef Flores MD Patient Problems - Patient Problem List (1) Nausea Current Visit: Yes Status: Acute Code(s): R11.0 - Nausea Category: Medical (2) Epigastric abdominal pain Current Visit: Yes Status: Acute Code(s): R10.13 - Epigastric pain Category: Medical (3) Primary osteoarthritis of shoulder Current Visit: No Status: Chronic Onset Date: 07/27/14 Comment: Continues with pain in both shoulders with and without ROM. Is scheduled for bilateral xray guided shoulder injections. Recommended acetaminophen AR 600 mg 2 tabs every 8 hours routinely to augment pain relief Code(s): M19.019 - Primary osteoarthritis, unspecified shoulder Qualifiers: Laterality: bilateral Qualified Code(s): M19.011 - Primary osteoarthritis, right shoulder; M19.011 - Primary osteoarthritis, right shoulder; M19.012 - Primary osteoarthritis, left shoulder; M19.012 - Primary osteoarthritis, left shoulder Category: Medical (4) History of recurrent urinary tract infection Current Visit: Yes Status: Acute Comment: The patient has a history of recurrent UTIs and currently has dysuria. A UA with microculture if indicated has been ordered. Code(s): Z87.440 - Personal history of urinary (tract) infections Category: Medical (5) Chronic pain syndrome Current Visit: Yes Status: Chronic Onset Date: 12/28/16 Comment: The patient has chronic pain syndrome and is on narcotics and gabapentin with several dose adjustments over the last few months and no significant improvement in pain control. She has been taking narcotic pain medications for >15 years and triazolam for sleep for >20 years. Discussed referral to pain management clinic with Sweta Turner NP. She just got the packet to fill out for the pain consult and does not have an appointment set up at [facility]. Code(s): G89.4 - Chronic pain syndrome Category: Medical (6) Iron deficiency anemia Current Visit: Yes Status: Chronic Comment: Has improved after ASA removed from oxycodone and celebrex and mobic were stopped. Not taking iron supplements orally but says she gets iron infusion every [address] Allred appointment 08/03 with lab to be done 08/01. Code(s): D50.9 - Iron deficiency anemia, unspecified Qualifiers: Iron deficiency anemia type: unspecified iron deficiency Qualified Code(s): D50.9 - Iron deficiency anemia, unspecified Category: Medical (7) Barretts esophagus Current Visit: Yes Status: Chronic Priority: Low Code(s): K22.70 - Gutierrez's esophagus without dysplasia Qualifiers: Gutierrez's esophagus type: with dysplasia of unspecified degree Qualified Code(s): K22.719 - Gutierrez's esophagus with dysplasia, unspecified; K22.719 - Gutierrez's esophagus with dysplasia, unspecified; K22.719 - Gutierrez's esophagus with dysplasia, unspecified; K22.71 - Gutierrez's esophagus with dysplasia Category: Medical
[2018-11-12] MEDS ORDERED: oxyCODONE ER Tab 20 MG TAB PO SCH (14:00)
[2018-11-12] MEDS ORDERED: GABAPENTIN 300 MG CAPSULE PO SCH (15:00)
[2018-11-12] MEDS ORDERED: OMEPRAZOLE 40 MG CAPSULE PO SCH (16:00)
[2018-11-12] MEDS ORDERED: EYE EACH EYE SCH (21:00)
[2018-11-12] MEDS ORDERED: TRAVOPROST 0.004% EACH EYE SCH (21:00)
[2018-11-13] MEDS ORDERED: Multivitamin Tab 1 TAB PO SCH (09:00)
== END 2018-11-12 13:45 | disposition home or self-care (01) | DRG 392 ==
LOC: ER 21:31 → MED/SURG 11-11
PROVIDERS: ADMIT Family Medicine; ATTEND Family Medicine

== ENCOUNTER 2019-02-21 07:20 | Inpatient (IN) ==
--- NOTE | 2019-02-21 07:39 | PDOC ---
Gen Adult / Medical Screen HPI - General Chief Complaint: General Medical Stated Complaint: laid on floor for a while Date Seen by Provider: 02/21/19 Time Seen by Provider: 07:30 Source: POSITIVE: Patient, EMS, Other (Son) Exam Limitations: POSITIVE: No limitations Nurse's Notes Reviewed & Considered: Yes EMS Report Reviewed & Considered: Verbal - Indicators Temperature Between 95 and 101 Degrees: Yes Respirations Between 12 and 20: Yes Blood Pressure Between 100-165 (sys) and 60-100 (ambrose): Yes Pulse Range Between 60-105 (100 for age > 60 years): Yes Severe Pain (Greater than 5/10 Reported): Yes Chest or Abdominal Pain: No Inability to Walk: Yes Pt Reports Active High Risk Cond. (TB/Hepatitis/HIV/Chemo): No - Patient Home Medications Home Medications: Home Medications Calcium Carbonate/Vitamin D3 [Calcium 600 + Vit D 400 Caplet] 1 cap PO BID #60 tab 09/28/12 Docusate Sodium [Stool Softener] 100 mg PO DAILY tab 11/05/15 Multivitamin [Daily Olinda] 1 tab PO DAILY tab 11/05/15 Beta Carot W/Vit E,C,Min Tab [Ocuvite Tab] 1 ea PO DAILY 12/26/17 conjugated estrogens 0.625 mg/gram vaginal cream 500 mg VAGINAL 3XW #30 g 05/04/18 omeprazole 40 mg capsule,delayed release 40 mg PO BID #180 cap 05/05/18 Travoprost Ophth Soln 0.004% [Travatan Ophth Soln 0.004%] 1 drp EACH EYE BEDTIME bottle 05/09/18 lidocaine 5 % topical patch 1 patch TRANSDERM daily/prn #30 patch 07/07/18 gabapentin 300 mg capsule 300 mg PO TID #90 cap 11/18/18 triazolam 0.25 mg tablet 0.25 mg PO QHS PRN #30 tab 12/15/18 prednisone 10 mg tablet 10 mg PO QDAY #10 tab 01/17/19 prednisone 20 mg tablet 20 mg PO QDAY #10 tab 01/17/19 oxycodone 20 mg tablet 20 mg PO Q8H PRN #90 tab 02/03/19 - Patient Allergies Allergies/Adverse Reactions: Allergies Allergy/AdvReac Type Severity Reaction Status Date / Time duloxetine [From Cymbalta] AdvReac Intermediate Trigeminal Verified 02/21/19 07:31 Neuralgia codeine AdvReac NAUSEA Verified 02/21/19 07:31 Past Medical History - heen HEENT History: Glaucoma, Macular Degeneration, Cataracts, Dentures/Partials Additional HEENT History: TMJ Cardiovascular History: Hyperlipidemia Additional Cardiovasular History: HEART MURMUR Respiratory History: Pneumonia, Other (please comment) Additional Respiratory History: previous tobacco use, quit in 1967. SOB WITH ACTIVITY. SHALLOW BREATHER, HAD HOME O2 BUT STATES DIDN'T WORK FOR HER Gastrointestinal History: GERD Additional Gastrointestinal History: constipation / SAUCEDA'S ESOPHAGUS, blood in stool Genitourinary History: Recurrent UTI, Other (please comment) Additional Genitourinary History: CHRONIC URINARY PAIN Endocrine History: Denies History Musculoskeletal History: Arthritis, Osteoporosis, Fibromyalgia, Back Pain, Joint Pain Prosthesis or Implant: Yes (LEFT TKA, DENTAL) Additional Musculoskeletal History: limited ROM in shoulders. Neurological History: Migraines Blood Disorders: Anemia Additional Blood Disorders History: iron deficiency Psychiatric History: Denies History History of Sexually Transmitted Diseases: No Cancer History: Denies History History of MDRO: No History of Other Communicable Diseases: No Alcohol Use: None In the Past 12 Months, Have Used or Abuse Any Substance: None Previous Surgical History: Yes Type / Date of Surgery: COLONOSCOPY/ TONSILLECTOMY/LEFT TKA /EGD/ TRIAL STIMULATOR PLACEMENT, LEFT WRIST Anesthesia Reactions: No Malignant Hyperthermia: No Significant Family History: Heart disease, Cancer ROS - Limitations ROS Limitations: No Limitations Constitution: REPORTS: Denies Symptoms Cardiovascular: REPORTS: Denies Cardiac Symptoms Respiratory: REPORTS: Denies Resp Symptoms Neurological: REPORTS: Difficulty Walking, Weakness Gastrointestinal: REPORTS: Denies GI Symptoms Endocrine: REPORTS: Denies Symptoms Musculoskeletal: REPORTS: Back Pain, Joint Pain, Muscle Aches, Neck Pain Genitourinary: REPORTS: Denies Symptoms Eyes: REPORTS: Denies Symptoms ENT: REPORTS: Denies Symptoms Skin: REPORTS: Denies Skin Symptoms Lympathic: REPORTS: Denies Lympathic Symptoms Immunologic: POSITIVE: Denies Symptoms Psychiatric: POSITIVE: Denies Psych Symptoms Gen Adult/Medical Screen Exam - General Appearance General Appearance: POSITIVE: Alert, Cooperative, Moderate Distress - HEENT HEENT: POSITIVE: Head Inspection Nml, Eyes Inspection Nml, Ears Inspection Nml, Nose Inspection Nml, Oral/Dental Inspect. Nml, Pharynx Inspect. Nml, PERRL, EOMI - Pupils Pupil Size: 4 mm: Bilateral - Neck Neck: POSITIVE: Thyroid Normal, Stiff Neck - Respiratory Respiratory: POSITIVE: No Respiratory Distress, Breath Sounds Normal, Chest Non- Tender - Cardiovascular Cardiovascular: POSITIVE: Regular Rate & Rhythm, No Murmur, No Gallop, PMI Normal Peripheral Pulses: Radial (R): 4+, Radial (L): 4+ - Abdomen Abdomen: Soft: (All Quadrants), Normal Bowel Sounds: (All Quadrants), Denies Tenderness: (All Quadrants), No Splenomegaly: (All Quadrants), No Hepatomegaly: (All Quadrants), No Guarding: (All Quadrants), No Rebound: (All Quadrants), No Palpable Pulse: (All Quadrants), No Palpabale Mass: (All Quadrants), No Distention: (All Quadrants), No Rigidity: (All Quadrants) - Back Back: POSITIVE: Thoracic Tenderness (T4-5) - Neurological / Psychological Mental Status: POSITIVE: Mood Normal, Affect Normal Orientation: POSITIVE: Oriented x 3 - Skin Skin: POSITIVE: Normal Color, Warm, Dry, No Rash - Extremities Extremity: Non-Tender: (RLE), Normal ROM: (All Extremities), Pelvis Stable: (All Extremities), Normal Tendon Exam: (All Extremities), Edema / Swelling: (RLE), (LLE) (+3 edema bilaterally), Tender: (LUE) (left shoulder) Additional Extremities Details: Patient with tenderness to palpation along her left leg, tenderness to palpation of her left shoulder with erythema and redness of the deltoid region. Procedures - Laceration/Wound Repair Did patient have a laceration repair: No Gen Adlt/Medical Scrn Progress - Results Reviewed by me Xrays/CTs/US Reviewed by me: Yes Discussed with Radiologist: Yes Lab Results Reviewed by Me: Yes CBC and BMP: 02/21/19 08:00 02/21/19 08:00 Lab Results:: Laboratory Results 02/21/19 02/21/19 02/21/19 08:00 08:00 08:00 WBC 10.04 RBC 4.02 L Hgb 10.8 L Hct 35.9 L MCV 89.3 MCH 26.9 L MCHC 30.1 L RDW Std Deviation 73.0 H RDW Coeff of Abdulaziz 23.2 H Plt Count 231 MPV 9.9 Immature Gran % (Auto) 0.3 Neut % (Auto) 84.1 H Lymph % (Auto) 8.2 L [place] % (Auto) 6.5 Eos % (Auto) 0.7 Baso % (Auto) 0.2 Immature Gran # (Auto) 0.03 Neut # (Auto) 8.45 Lymph # (Auto) 0.82 [place] # (Auto) 0.65 Eos # (Auto) 0.07 Baso # (Auto) 0.02 WBC Morphology Comment Normal morphology Plt Morphology Comment Normal morphology RBC Morph Comment Normal morphology PT 12.1 INR 1.05 D-Dimer 1084 H Sodium 140 Potassium 4.2 Chloride 103 Carbon Dioxide 29 Anion Gap 8 BUN 18 Creatinine 0.8 Estimated GFR BUN/Creatinine Ratio 22.50 H Glucose 112 H Calculated Osmolality 292.0 Calcium 8.7 Magnesium 2.1 Total Bilirubin 0.5 AST 28 ALT 25 Alkaline Phosphatase 56 Total Creatine Kinase 197 H CK-MB (CK-2) Troponin I Handheld NT-Pro-B Natriuret Pep Total Protein 6.2 Albumin 3.4 L Globulin 2.8 Albumin/Globulin Ratio 1.20 L TSH 02/21/19 02/21/19 02/21/19 08:00 08:00 08:00 WBC RBC Hgb Hct MCV MCH MCHC RDW Std Deviation RDW Coeff of Abdulaziz Plt Count MPV Immature Gran % (Auto) Neut % (Auto) Lymph % (Auto) [place] % (Auto) Eos % (Auto) Baso % (Auto) Immature Gran # (Auto) Neut # (Auto) Lymph # (Auto) [place] # (Auto) Eos # (Auto) Baso # (Auto) WBC Morphology Comment Plt Morphology Comment RBC Morph Comment PT INR D-Dimer Sodium Potassium Chloride Carbon Dioxide Anion Gap BUN Creatinine Estimated GFR BUN/Creatinine Ratio Glucose Calculated Osmolality Calcium Magnesium Total Bilirubin AST ALT Alkaline Phosphatase Total Creatine Kinase CK-MB (CK-2) Cancelled 3.82 Troponin I Handheld 0.000 NT-Pro-B Natriuret Pep Total Protein Albumin Globulin Albumin/Globulin Ratio TSH 4.74 H 02/21/19 08:30 WBC RBC Hgb Hct MCV MCH MCHC RDW Std Deviation RDW Coeff of Abdulaziz Plt Count MPV Immature Gran % (Auto) Neut % (Auto) Lymph % (Auto) [place] % (Auto) Eos % (Auto) Baso % (Auto) Immature Gran # (Auto) Neut # (Auto) Lymph # (Auto) [place] # (Auto) Eos # (Auto) Baso # (Auto) WBC Morphology Comment Plt Morphology Comment RBC Morph Comment PT INR D-Dimer Sodium Potassium Chloride Carbon Dioxide Anion Gap BUN Creatinine Estimated GFR BUN/Creatinine Ratio Glucose Calculated Osmolality Calcium Magnesium Total Bilirubin AST ALT Alkaline Phosphatase Total Creatine Kinase CK-MB (CK-2) Troponin I Handheld NT-Pro-B Natriuret Pep 554 H Total Protein Albumin Globulin Albumin/Globulin Ratio TSH EKG Interpreted/Reviewed By Me:: Yes (sinus rhythm, 73 beats a minute, no ST elevation.) EKG Interpretation:: POSITIVE: Normal Sinus Rhythm, Normal Rate, Normal ST/T - Patient's Progress Re-Examine Time: 08:37 Status: POSITIVE: Improved MDM / ED Course: Patient was evaluated, an IV started, blood drawn and sent to the lab for studies, EKG, chest x-ray and CT scan as well as x-ray of her thoracic spine were obtained. Findings: CBC shows white count, platelets, are normal, with anemia and a hemo globin of 10.8, hematocrit 35.9, neutrophils predominate at 84.1% and lymphocytes are 8.2%. Coag studies show PT appropriate 1, INR 1.05, d-dimer is elevated at 1084. CMP shows abnormality with glucose 112, albumin of 3.4, the remainder the panel is normal. Magnesium is normal at 2.1. EKG, per my interpretation, shows sinus rhythm with a rate of 73 beats a minute and no ST elevations. Cardiac enzymes her troponin is 0.000, total CK of 197, CK-MB is 3.74. TSH is high at 4.74 and free T4 is pending. While awaiting results of radiological studies my shift is ending. Please see Dr. Peña's dictation for results, assessment and disposition. - Consult Counseled: POSITIVE: Patient, Family, RE: Lab Results Patient Care Time - Estimated PCT Patient Care Time (In Minutes): 45 Vital Signs - Recent Vital Signs Vital Signs: Vital Signs (Last 8 hours) Temp Pulse Resp BP Pulse Ox 02/21/19 07:32 94 02/21/19 07:21 97.4 F 80 18 129/65 88 - VS Reviewed Vital Signs Reviewed: Yes Discharge Clinical Impression: Fall, Anemia, Congestive heart failure Condition: Stable Patient Problem(s) Reviewed: Yes Patient Instructions Given at Discharge: Fall Prevention (ED), Iron Rich Diet (ED), Anemia (ED) Follow Up With: MOISÉS VERNON [Primary Care Provider] -
[2019-02-21] MEDS ORDERED: Sodium Chloride 0.9% 1,000 ML PRIMARY IV ONE (07:41)
[2019-02-21] MEDS ORDERED: ONDANSETRON 4 MG/2 ML VIAL IVP ONE (07:41)
--- NOTE | 2019-02-21 07:56 | EKG ---
[address] [place] [address] Test Date: 2019-02-21 Pat Name: Cristela Blanca Department: ER Room: Gender: Female [employer] Justice: KEEGAN : 1935 Requested By: Geovani Swan Order Number: [id number] Reading MD: Ji Arriaga MD Measurements Intervals [place] Rate: 73 P: 80 SD: 162 QRS: -54 QRSD: 80 T: 29 QT: 376 QTc: 417 Interpretive Statements SINUS RHYTHM LEFT ANTERIOR FASCICULAR BLOCK [QRS AXIS <= -45, QR IN I, RS IN II] Compared to ECG 11/11/2018 00:43:33 Left anterior fascicular block now present Myocardial infarct finding no longer present Electronically Signed On 02-21-2019 9:01:13 MDT by Ji Arriaga MD [id number]
[2019-02-21 08:13] LABS: BASOPHILS # (AUTO) 0.02 10*3/UL; BASOPHILS % (AUTO) 0.2 % (0-1); EOSINOPHILS # (AUTO) 0.07 10*3/UL; EOSINOPHILS % (AUTO) 0.7 % (0-8); Hematocrit [HCT] 35.9 % (37.0-47.0); Hemoglobin [HGB] 10.8 g/dL (12.0-16.0); LYMPHOCYTES # (AUTO) 0.82 10*3/uL; MEAN CORPUSCULAR HGB CONC 30.1 g/dL (33-37); MEAN CORPUSCULAR VOLUME 89.3 FL (81-99); MEAN PLATELET VOLUME 9.9 FL (7.4-12.2); MONOCYTES # (AUTO) 0.65 10*3/UL (0.3-0.8); MONOCYTES % (AUTO) 6.5 % (5-15); NEUTROPHILS # (AUTO) 8.45 10*3/UL; NEUTROPHILS % (AUTO) 84.1 % (50-80); RED BLOOD COUNT 4.02 10^6/uL (4.20-5.40)
[2019-02-21 08:26] LABS: BUN/CREATININE RATIO 22.5 (6-20); PLATELET MORPHOLOGY COMMENT NORMAL MORPHOLOGY (NORM); RBC MORPHOLOGY COMMENT NORMAL MORPHOLOGY (NORM); SERUM ALBUMIN 3.4 g/dL (3.5-4.8); WBC MORPHOLOGY COMMENT NORMAL MORPHOLOGY (NORM)
[2019-02-21 09:30] LABS: BILIRUBIN,URINE NEGATIVE (NEG); CLARITY,URINE CLEAR (CLEAR); COLOR,URINE YELLOW (Y); GLUCOSE, URINE (UA) NEGATIVE (NEG); OCCULT BLOOD,URINE Trace-intact (NEG); PROTEIN,URINE NEGATIVE (NEG)
[2019-02-21 09:41] LABS: URINE SAMPLE TYPE CLEAN CATCH URINE
--- NOTE | 2019-02-21 09:57 | DI ---
AP CHEST X-RAY, 02/21/2019 9:23 AM : Clinical History: Injury. The patient fell. Previous Exam: None at this facility. Soft Tissues: No acute soft tissue abnormality. No subcutaneous emphysema. Bones: Normal. No fractures noted. Heart: Heart Size: Normal. Vascular Pedicle Width: Normal. Azygous Vein: Normal size. Vascular Flow P attern:Reversal of flow to upper lobes indicating chronic elevated left atrial pressure. Pulmonary Arteries: Normal. Lungs: No infiltrates. Atelectasis in the right upper lung field. No pneumothorax. Effusion(s): None. Mediastinum: Normal. Nodules: No pulmonary nodules. Readin. No pneumothorax. No fractures noted. 2. Cardiomegaly with compensated chronic left heart failure. 3. Slight increased density in the right upper lung field most likely secondary to atelectasis.
--- NOTE | 2019-02-21 10:05 | DI ---
THORACIC SPINE SERIES, 02/21/2019 9:23 AM: Clinical History: Pain. Status post fall. Previous Exam: 05/23/2015 Views: Upright AP and lateral views. Comparison is also made with the AP chest x-ray obtained concurr ently. Vertebral Bodies: Normal vertebral body height and size. No definite fracture is noted. There is oste oporosis. Disc Spaces: Normal. Pedicles: Normal. Apophyseal Joints: Normal. Paravertebral Soft Tissues: No paravertebral soft tissue widening. Alignment: Normal. Bone Density: Osteoporosis. Additional Findings: The nerve stimulating device present on the prior study has been removed. Readin. Negative thoracic spine series. 2. Osteoporosis. 3. If symptoms persist at the affected site, then follow-up films or even an MRI scan of the thoraci c spine are recommended in 7-10 days. Comment: A hiatal hernia is present. Additionally, the densities in the right upper lung field and th e right lower lung field probably represent atelectasis but if the patient has pulmonary symptoms, th en followup films are recommended.
--- NOTE | 2019-02-21 10:54 | PDOC ---
Transfer of Care - Care Accepted Time Care Transferred: 09:05 Report from Transferring Physician Received: Yes MDM / ED Course: 83-year-old female presented to the emergency department after playing on her bathroom floor this morning for several hours. Patient was initially seen by Dr. Swan and was transferred to my care at shift change pending CT scan of her chest. Labs had been performed and were reviewed upon acceptance of patient's care by myself. Patient tells me she was laying on the floor because she was just too weak to get up. She denies actually falling. She denies loss of consciousness/syncope. CT images returned and I reviewed these images with the radiologist. Patient was found to have right-sided pulmonary emboli. I discussed all the results with the patient and her family and recommended admission to the hospital for further evaluation of her weakness and treatment of her pulmonary emboli. I started the patient on a heparin drip discussion with the hospitalist, Dr. Mitchell, who accepted the patient for admission. Patient was given heparin bolus and started on heparin drip for PE protocol. Patient was transferred to the floor in stable but guarded condition. Home Medications: Home Medications Calcium Carbonate/Vitamin D3 [Calcium 600 + Vit D 400 Caplet] 1 cap PO BID #60 tab 09/28/12 Docusate Sodium [Stool Softener] 100 mg PO DAILY tab 11/05/15 Multivitamin [Daily Olinda] 1 tab PO DAILY tab 11/05/15 Beta Carot W/Vit E,C,Min Tab [Ocuvite Tab] 1 ea PO DAILY 12/26/17 omeprazole 40 mg capsule,delayed release 40 mg PO BID #180 cap 05/05/18 gabapentin 300 mg capsule 300 mg PO TID #90 cap 11/18/18 triazolam 0.25 mg tablet 0.25 mg PO QHS PRN #30 tab 12/15/18 oxycodone 20 mg tablet 20 mg PO Q8H PRN #90 tab 02/03/19 Allergies/Adverse Reactions: Allergies duloxetine [From Cymbalta] Adverse Reaction (Intermediate, Verified 02/21/19 07:31) Trigeminal Neuralgia codeine Adverse Reaction (Verified 02/21/19 07:31) NAUSEA Vital Signs Reviewed: Yes Nurse's Notes Reviewed & Considered: Yes - Record Incomplete - Expected Patient Outcome Expected Disposition: POSITIVE: Admit IP - Re-Evaluation of Patient Disposition of Patient: POSITIVE: Admitted Counseled: POSITIVE: Patient, Family, RE: Lab Results, RE: Radiology Results, RE: DX, RE: Need for F/U Pending Test Results Documented: Yes Clinical Impression Documented: Yes - Results Reviewed Lab Results Reviewed by Me: Yes Lab Results: Laboratory Results 02/21/19 02/21/19 02/21/19 08:00 08:00 08:00 WBC 10.04 RBC 4.02 L Hgb 10.8 L Hct 35.9 L MCV 89.3 MCH 26.9 L MCHC 30.1 L RDW Std Deviation 73.0 H RDW Coeff of Abdulaziz 23.2 H Plt Count 231 MPV 9.9 Immature Gran % (Auto) 0.3 Neut % (Auto) 84.1 H Lymph % (Auto) 8.2 L [place] % (Auto) 6.5 Eos % (Auto) 0.7 Baso % (Auto) 0.2 Immature Gran # (Auto) 0.03 Neut # (Auto) 8.45 Lymph # (Auto) 0.82 [place] # (Auto) 0.65 Eos # (Auto) 0.07 Baso # (Auto) 0.02 WBC Morphology Comment Normal morphology Plt Morphology Comment Normal morphology RBC Morph Comment Normal morphology PT 12.1 INR 1.05 APTT D-Dimer 1084 H Sodium 140 Potassium 4.2 Chloride 103 Carbon Dioxide 29 Anion Gap 8 BUN 18 Creatinine 0.8 Estimated GFR BUN/Creatinine Ratio 22.50 H Glucose 112 H Calculated Osmolality 292.0 Calcium 8.7 Magnesium 2.1 Total Bilirubin 0.5 AST 28 ALT 25 Alkaline Phosphatase 56 Total Creatine Kinase 197 H CK-MB (CK-2) Troponin I Handheld NT-Pro-B Natriuret Pep Total Protein 6.2 Albumin 3.4 L Globulin 2.8 Albumin/Globulin Ratio 1.20 L TSH Free T4 Ur Collection Type Urine Color Urine Clarity Urine pH Ur Specific [place] Urine Protein Urine Glucose (UA) Urine Ketones Urine Occult Blood Urine Nitrate Urine Bilirubin Urine Urobilinogen Ur Leukocyte Esterase Ur Culture Indicated? 02/21/19 02/21/19 02/21/19 08:00 08:00 08:00 WBC RBC Hgb Hct MCV MCH MCHC RDW Std Deviation RDW Coeff of Abdulaziz Plt Count MPV Immature Gran % (Auto) Neut % (Auto) Lymph % (Auto) [place] % (Auto) Eos % (Auto) Baso % (Auto) Immature Gran # (Auto) Neut # (Auto) Lymph # (Auto) [place] # (Auto) Eos # (Auto) Baso # (Auto) WBC Morphology Comment Plt Morphology Comment RBC Morph Comment PT INR APTT D-Dimer Sodium Potassium Chloride Carbon Dioxide Anion Gap BUN Creatinine Estimated GFR BUN/Creatinine Ratio Glucose Calculated Osmolality Calcium Magnesium Total Bilirubin AST ALT Alkaline Phosphatase Total Creatine Kinase CK-MB (CK-2) Cancelled 3.82 Troponin I Handheld 0.000 NT-Pro-B Natriuret Pep Total Protein Albumin Globulin Albumin/Globulin Ratio TSH 4.74 H Free T4 0.99 Ur Collection Type Urine Color Urine Clarity Urine pH Ur Specific [place] Urine Protein Urine Glucose (UA) Urine Ketones Urine Occult Blood Urine Nitrate Urine Bilirubin Urine Urobilinogen Ur Leukocyte Esterase Ur Culture Indicated? 02/21/19 02/21/19 02/21/19 08:00 08:30 09:25 WBC RBC Hgb Hct MCV MCH MCHC RDW Std Deviation RDW Coeff of Abdulaziz Plt Count MPV Immature Gran % (Auto) Neut % (Auto) Lymph % (Auto) [place] % (Auto) Eos % (Auto) Baso % (Auto) Immature Gran # (Auto) Neut # (Auto) Lymph # (Auto) [place] # (Auto) Eos # (Auto) Baso # (Auto) WBC Morphology Comment Plt Morphology Comment RBC Morph Comment PT INR APTT 29.2 D-Dimer Sodium Potassium Chloride Carbon Dioxide Anion Gap BUN Creatinine Estimated GFR BUN/Creatinine Ratio Glucose Calculated Osmolality Calcium Magnesium Total Bilirubin AST ALT Alkaline Phosphatase Total Creatine Kinase CK-MB (CK-2) Troponin I Handheld NT-Pro-B Natriuret Pep 554 H Total Protein Albumin Globulin Albumin/Globulin Ratio TSH Free T4 Ur Collection Type Clean catch urine Urine Color Yellow Urine Clarity Clear Urine pH 7.0 Ur Specific [place] 1.015 Urine Protein Negative Urine Glucose (UA) Negative Urine Ketones Negative Urine Occult Blood Trace-intact H Urine Nitrate Negative Urine Bilirubin Negative Urine Urobilinogen 1.0 Ur Leukocyte Esterase Negative Ur Culture Indicated? Culture not set - Consult Consult (If Yes, Name of Consulting MD & Time Called): Yes (Dr. Love) Recommendations:: accepted patient for admission Patient Care Time - Estimated PCT Patient Care Time (In Minutes): 35 Vital Signs - VS Reviewed Vital Signs Reviewed: Yes Discharge Clinical Impression: Fall, Anemia, Congestive heart failure, Pulmonary embolism on right Discharge Disposition: Admit to Inpatient Condition: Stable Patient Problem(s) Reviewed: Yes Care Transferred To: Dr. Love Date Decision to Admit to Inpatient: 02/21/19 Time Decision to Admit to Inpatient: 10:25
[2019-02-21] MEDS ORDERED: HEPARIN 5000 UNIT/1 ML IV ONE (11:13)
[2019-02-21] MEDS ORDERED: Heparin Drip 25,000 UNIT/500 ML BAG IV SCH ×2 (11:15→12:32)
--- NOTE | 2019-02-21 11:35 | DI ---
CT ANGIOGRAM OF THE CHEST, 02/21/2019 9:38 AM : Clinical History: Fall. Elevated D-dimer test. Previous Exam: None at this facility. Technique: Scans from base of neck to lung bases with IV contrast. Bolus tracking protocol was used f or timing the injection. Non-MIPS and MIPS sagittal/coronal images generated. IV Contrast: 55 mL of Omnipaque 300. Base of Neck: Normal. Nodes: Normal axillary, supraclavicular, mediastinal, and hilar lymph nodes. Heart: Normal. No coronary artery calcifications. Aorta: Normal thoracic aorta. No aneurysm or dissection. Calcifications are present near the aortic v alve and this is suggestive of calcific aortic valve disease. Pulmonary Arteries: Pulmonary emboli are visualized in branches to the right lower lobe and left uppe r lobe. Mediastinum: Normal. Lungs: There are patchy infiltrates in the right upper lobe and the right lower lobe in these are ass ociated with pulmonary artery branches that are filled with clot. However, none of these patchy infil trates are pleural-based which is somewhat atypical for pulmonary infarction. There is a patchy densi ty in the inferior segment of the lingula but no definite pulmonary embolism is noted in this area. Effusion(s): None. Nodules: None. Bony Structures: Normal visualized portions of ribs, sternum, scapulae, clavicles, and shoulders. Nor mal visualized portions of thoracic spine. No fractures of the thoracic spine are seen. There is oste oporosis. Limited Upper Abdomen: Normal adrenal glands and spleen. Normal limited views of liver and pancreas. READIN. Pulmonary emboli are present in branches to the right lower lobe and the right upper lobe. These branches are associated with patchy parenchymal infiltrates that are not pleural based. Although thes e patchy infiltrates may be a manifestation of pulmonary infarction, there is typical in the none are pleural-based. There is a patchy density in the lingula but no definite pulmonary emboli are seen in branches to the lingula. 2. No compression fracture of the thoracic spine is identified. No rib fractures noted. 3. Calcifications are present in proximity to the aortic valve leaflets and calcific aortic valvular disease cannot be excluded.
[2019-02-21] MEDS ORDERED: fentaNYL Inj 100 MCG/2 ML VIAL IVP PRN (12:32)
[2019-02-21] MEDS ORDERED: ONDANSETRON 4 MG/2 ML VIAL IVP PRN (12:32)
[2019-02-21] MEDS ORDERED: ESTROGENS,CONJUGATED 30 GM CREAM VAGINAL SCH (12:32)
[2019-02-21] MEDS ORDERED: LIDOCAINE W/ SODIUM BICARB 0.5 ML SYR SUBD PRN (12:32)
[2019-02-21] MEDS ORDERED: ACETAMINOPHEN 325 MG TABLET PO PRN (12:32)
[2019-02-21] MEDS ORDERED: CALCIUM CARBONATE 500 MG (TUMS) CHEWABLE TABLET PO PRN (12:32)
[2019-02-21] MEDS ORDERED: DOCUSATE 100 MG CAPSULE PO PRN (12:32)
--- NOTE | 2019-02-21 13:44 | PDOC ---
HPI - History of Present Illness History of Present Illness: This very nice 84-year-old female who was at home while going to the bathroom felt a little lightheaded and was brought to the ER her d-dimer was elevated CT scan of the chest revealed a right-sided PE. After talking to her she said that Wednesday night she felt like she aspirated from her reflux pretty bad because I mentioned to her that might be an initial of pneumonia on her chest x-ray and also that she has a left shift. She has no chest pain nausea or vomiting at present time Past Medical History Medical History: 1. GERD-with Gutierrez's esophagus. 2. Osteoporosis. 3. Lumbar spondylosis. 4. Osteoarthritis. 5. Hx of hyperlipidemia. 6. Gutierrez's esophagitis. 7. macular degeneration. 8. chronic interstitial cystitis with recurrent UTI's. 9. Anemia. 10. History of colon polyps Surgical History: 1. colonoscopies and EGD's-multiple of each. most recent colonoscopy had a tubular adenoma in 2009. Patient reports she had an upper endoscopy and lower endoscopy within the last 3 years. 2. left knee surgery. 3. spinal stimulator with subsequent removal ( this was a stimulator electrode test. patient then had a blood patch). 4. hand surgery. Family History: Reviewed an Not Pertinent Pertinent Family History: significant for heart disease in her father Past Social History: quit smoking in the s, no alcohol, has children that are healthy. ambulates with walker and lives independently in the [facility]. Her daughter helps her with her healthcare. She has 4 healthy children Tobacco Use: Never Smoker In the Past 12 Months, Have Used or Abuse Any of the Following Substance: None Medication / Allergies Home Medications: Home Medications Medication Instructions Recorded Confirmed Calcium Carbonate/Vitamin D3 1 cap PO BID #60 tab 09/28/12 02/21/19 [Calcium 600 + Vit D 400 Caplet] Docusate Sodium [Stool Softener] 100 mg PO DAILY tab 11/05/15 02/21/19 Multivitamin [Daily Olinda] 1 tab PO DAILY tab 11/05/15 02/21/19 Beta Carot W/Vit E,C,Min Tab 1 ea PO DAILY 12/26/17 02/21/19 [Ocuvite Tab] conjugated estrogens 0.625 mg/gram 500 mg VAGINAL 3XW #30 g 05/04/18 02/21/19 vaginal cream omeprazole 40 mg capsule,delayed 40 mg PO BID #180 cap 05/05/18 02/21/19 release Travoprost Ophth Soln 0.004% 1 drp EACH EYE BEDTIME bottle 05/09/18 02/21/19 [Travatan Ophth Soln 0.004%] lidocaine 5 % topical patch 1 patch TRANSDERM daily/prn #30 07/07/18 02/21/19 patch gabapentin 300 mg capsule 300 mg PO TID #90 cap 11/18/18 02/21/19 triazolam 0.25 mg tablet 0.25 mg PO QHS PRN #30 tab 12/15/18 02/21/19 prednisone 10 mg tablet 10 mg PO QDAY #10 tab 01/17/19 02/21/19 prednisone 20 mg tablet 20 mg PO QDAY #10 tab 01/17/19 02/21/19 oxycodone 20 mg tablet 20 mg PO Q8H PRN #90 tab 02/03/19 02/21/19 Allergies/Adverse Reactions: Allergies Allergy/AdvReac Type Severity Reaction Status Date / Time duloxetine [From Cymbalta] AdvReac Intermediate Trigeminal Verified 02/21/19 07:31 Neuralgia codeine AdvReac NAUSEA Verified 02/21/19 07:31 Review of Systems - Review of Systems All Systems: Reviewed & No Additional Complaints Except as Stated - Cardiovascular Cardiovascular: DENIES: Negative System Review, Chest Pain, Edema, Syncope, Palpitations, Orthopnea, Paroxysmal Nocturnal Dyspnea, Other, See HPI - Gastrointestinal Gastrointestinal / Abdominal: DENIES: Negative System Review, Nausea, Vomiting, Diarrhea, Constipation, Abdominal Pain, Bloody Stool, Poor Appetite, Heartburn, Regurgitation, Bloating, Lactose Intolerance, Melena, Bright Red Blood per Rectum, Other, See HPI Exam - Vitals Vital Signs: Vital Signs Temperature 97.4 F Temperature Source Temporal Artery Scan Pulse Rate [Pulse Oximeter 80 Right] Respiratory Rate 18 Blood Pressure [Left Arm] 129/65 Pulse Ox 94 Oxygen Delivery Method Nasal Cannula Height 5 ft 4 in Weight 126 lb - General General Appearance: No Acute Distress, Cooperative - Eye Eye Exam: POSITIVE: Normal Appearance, PERRL, EOMI, No Scleral Icterus - Respiratory Respiratory Exam: POSITIVE: Clear to Auscultation - Bilaterally, Breathing Non Labored, Normal To Percussion, Normal to Percussion and Palpation - Cardiovascular Cardiovascular Exam: POSITIVE: RRR, No Murmur, No Clicks, No Gallops, No Rubs, PMI Non-Displaced - GI/Abdominal GI/Abdominal Exam: POSITIVE: Normal Bowel Sounds, Non Tender, Non Distended, Soft, No Masses, No Hepatomegaly, No Splenomegaly, No Organomegaly - Extremities Extremities Exam: POSITIVE: Tenderness (On palpation more on the right and left very sensitive skin), +2 Edema Results - Labs CBC and BMP: 02/21/19 08:00 02/21/19 08:00 Assessment and Plan - Patient Problems (1) Pulmonary embolus Current Visit: Yes Status: Acute Comment: Heparin drip will transition to oral anticoagulation. Follow-up with hematology for etiology and genetic studies. I recommended ultrasound of her lower extremities right lower extremity more swollen than the left. Code(s): I26.99 - Other pulmonary embolism without acute cor pulmonale (2) Aspiration pneumonia Current Visit: Yes Status: Acute Comment: Ceftriaxone and Flagyl patient aspirated Wednesday Code(s): J69.0 - Pneumonitis due to inhalation of food and vomit (3) Congestive heart failure Current Visit: Yes Status: Acute Comment: Insert De catheter Lasix 40 IV twice a day Code(s): I50.9 - Heart failure, unspecified
[2019-02-21] MEDS ORDERED: LIDOCAINE HCL 2 % 10 ML JELLY URO-JECT TOPICAL PRN (13:56)
[2019-02-21] MEDS: cefTRIAXone Inj 2 GM in Sodium Chloride 0.9% 100 ML IV SCH (14:45)
[2019-02-21] MEDS: Sodium Chloride 0.9% 1,000 ML PRIMARY IV SCH (14:45)
[2019-02-21] MEDS: GABAPENTIN 300 MG CAPSULE PO SCH ×2 (16:21→20:31)
[2019-02-21] MEDS: metroNIDAZOLE 500mg (Premix) 500 MG/100 ML BAG IV SCH ×2 (16:21→23:47)
--- NOTE | 2019-02-21 16:43 | DI ---
VENOUS DOPPLER ULTRASOUND OF BOTH LOWER EXTREMITIES, 02/21/2019 1:37 PM: Clinical History: Pulmonary embolism. Previous Exam: None. Technique: 2D real-time imaging and color Doppler ultrasound with compression and augmentation maneuv ers. Deep Venous System: Normal deep venous system from groin to popliteal fossa bilaterally. Superficial Venous System: Normal greater saphenous vein bilaterally. Edema: None. Reading: Negative venous Doppler ultrasound of both lower extremities for deep vein thrombosis.
[2019-02-21] MEDS: OXYCODONE HCL 20 MG PO PRN (17:09)
[2019-02-21] MEDS: FUROSEMIDE 10 MG/1 ML - 4 ML IVP SCH (17:09)
[2019-02-21] MEDS: Calcium/Vit D 600mg/400u Tab 1 TAB TABLET PO SCH (20:31)
[2019-02-21] MEDS: EYE EACH EYE SCH (20:40)
[2019-02-21] MEDS: TRAVOPROST 0.004% EACH EYE SCH (20:40)
[2019-02-21] MEDS: OMEPRAZOLE 40 MG CAPSULE PO SCH (23:47)
[2019-02-21] MEDS: TRIAZOLAM 0.25 MG PO PRN (23:47)
[2019-02-22] MEDS: Sodium Chloride 0.9% 1,000 ML PRIMARY IV SCH ×2 (01:03→09:37)
[2019-02-22 06:25] LABS: BUN/CREATININE RATIO 18.75 (6-20); SERUM ALBUMIN 2.5 g/dL (3.5-4.8)
[2019-02-22] MEDS: OMEPRAZOLE 40 MG CAPSULE PO SCH ×2 (06:49→17:15)
[2019-02-22] MEDS: metroNIDAZOLE 500mg (Premix) 500 MG/100 ML BAG IV SCH ×3 (06:49→22:53)
[2019-02-22] MEDS: FUROSEMIDE 10 MG/1 ML - 4 ML IVP SCH ×2 (06:49→13:04)
[2019-02-22] MEDS ORDERED: FUROSEMIDE 10 MG/1 ML - 4 ML IVP SCH (07:00)
[2019-02-22 07:06] LABS: BASOPHILS # (AUTO) 0.04 10*3/UL; BASOPHILS % (AUTO) 0.5 % (0-1); EOSINOPHILS # (AUTO) 0.16 10*3/UL; EOSINOPHILS % (AUTO) 2.1 % (0-8); Hematocrit [HCT] 31.9 % (37.0-47.0); Hemoglobin [HGB] 9.6 g/dL (12.0-16.0); MEAN CORPUSCULAR HGB CONC 30.1 g/dL (33-37); MEAN CORPUSCULAR VOLUME 89.9 FL (81-99); MEAN PLATELET VOLUME 10.7 FL (7.4-12.2); MONOCYTES # (AUTO) 0.76 10*3/UL (0.3-0.8); MONOCYTES % (AUTO) 9.9 % (5-15); NEUTROPHILS # (AUTO) 5.18 10*3/UL; NEUTROPHILS % (AUTO) 67.3 % (50-80); RED BLOOD COUNT 3.55 10^6/uL (4.20-5.40)
[2019-02-22 07:26] LABS: PLATELET MORPHOLOGY COMMENT NORMAL MORPHOLOGY (NORM); RBC MORPHOLOGY COMMENT SEE COMMENTS (NORM); WBC MORPHOLOGY COMMENT NORMAL MORPHOLOGY (NORM)
[2019-02-22] MEDS ORDERED: Apixaban Tab 2.5 MG TABLET PO SCH (09:00)
[2019-02-22] MEDS: DOCUSATE 100 MG CAPSULE PO SCH (09:05)
[2019-02-22] MEDS: Multivitamin Tab 1 TAB PO SCH (09:05)
[2019-02-22] MEDS: GABAPENTIN 300 MG CAPSULE PO SCH ×3 (09:05→22:44)
[2019-02-22] MEDS: Calcium/Vit D 600mg/400u Tab 1 TAB TABLET PO SCH ×2 (09:05→22:45)
[2019-02-22] MEDS: predniSONE Tab 10 MG TAB PO SCH (09:05)
[2019-02-22] MEDS: predniSONE Tab 20 MG TAB PO SCH (09:05)
--- NOTE | 2019-02-22 11:21 | PDOC(PROG) ---
Interval History: Doing better has no complaints no chest pain no nausea no shortness of breath Objective : Data - Labs CBC and BMP: 02/22/19 05:15 02/22/19 05:15 Objective : Exam - Respiratory Respiratory Exam: Clear to Auscultation - Bilaterally, Breathing Non Labored, Normal To Percussion, Normal to Percussion and Palpation - Cardiovascular Cardiovascular Exam: RRR, No Murmur, No Clicks, No Gallops, No Rubs, PMI Non- Displaced - GI/Abdominal GI/Abdominal Exam: Normal Bowel Sounds, Non Tender, Non Distended, Soft, No Masses, No Hepatomegaly, No Splenomegaly, No Organomegaly - Extremities Additional Extremities Exam Details: Less swelling in her lower extremities - Neurological Neurological Exam: Alert, Oriented x 3, No Facial Droop, Speech Intact / Clear, Moves All Extremities Equally - Psychiatric Psychiatric Exam: Normal Affect Assessment and Plan - Patient Problems (1) Pulmonary embolus Current Visit: Yes Status: Acute Code(s): I26.99 - Other pulmonary embolism without acute cor pulmonale (2) Aspiration pneumonia Current Visit: Yes Status: Acute Code(s): J69.0 - Pneumonitis due to inhalation of food and vomit (3) Congestive heart failure Current Visit: Yes Status: Acute Code(s): I50.9 - Heart failure, unspecified - Assessment / Plan Additional Assessment/Plan Details: #1 pulmonary embolus we will stop the heparin drip and the patient and has lost her IV on the left and is bothering her we'll switch her over to a low course 10 mg twice a day for 10 days then 5 mg by mouth twice a day. She is scheduled for an echo today. #2 possible CHF patient's leg is been swollen for quite a time now the family states that her extremity ultrasound revealed no DVT patient was diuresed with Lasix about 5 L so far. I did discuss it with the family and most likely will need cardiology follow-up as an outpatient
[2019-02-22] MEDS: cefTRIAXone Inj 2 GM in Sodium Chloride 0.9% 100 ML IV SCH (13:03)
[2019-02-22] MEDS: OXYCODONE HCL 20 MG PO PRN (17:43)
[2019-02-22] MEDS: TRAVOPROST OPTH EACH EYE SCH (22:43)
[2019-02-22] MEDS: Apixaban 5 MG TABLET PO SCH (22:44)
[2019-02-22] MEDS: TRIAZOLAM 0.25 MG PO PRN (22:53)
[2019-02-22] MEDS: TRAVOPROST 0.004% EACH EYE SCH (23:07)
[2019-02-22] MEDS: EYE EACH EYE SCH (23:07)
[2019-02-23] MEDS: metroNIDAZOLE 500mg (Premix) 500 MG/100 ML BAG IV SCH ×3 (07:50→22:16)
[2019-02-23] MEDS: FUROSEMIDE 10 MG/1 ML - 4 ML IVP SCH (07:50)
[2019-02-23] MEDS: OXYCODONE HCL 20 MG PO PRN ×2 (07:51→16:25)
[2019-02-23] MEDS: OMEPRAZOLE 40 MG CAPSULE PO SCH ×2 (09:58→17:13)
[2019-02-23] MEDS: Apixaban 5 MG TABLET PO SCH ×2 (09:58→20:23)
[2019-02-23] MEDS: Multivitamin Tab 1 TAB PO SCH (09:58)
[2019-02-23] MEDS: Calcium/Vit D 600mg/400u Tab 1 TAB TABLET PO SCH ×2 (10:00→20:23)
[2019-02-23] MEDS: DOCUSATE 100 MG CAPSULE PO SCH (10:00)
[2019-02-23] MEDS: GABAPENTIN 300 MG CAPSULE PO SCH ×3 (10:00→20:23)
[2019-02-23] MEDS: predniSONE Tab 10 MG TAB PO SCH (10:13)
[2019-02-23] MEDS: predniSONE Tab 20 MG TAB PO SCH (10:13)
--- NOTE | 2019-02-23 10:41 | PDOC(PROG) ---
Date of Service: 02/23/19 Time of Service: 10:30 Interval History: Subjective Patient was sitting in the chair complaining from back pain and pain in her shoulders. She denied chest pain, shortness of breath. She said that found herself in the bathroom maybe she hit her head she is not sure. No sure whether was she passed out. She says she took a sleeping pill at night so she doesn't remember well. The pain in the back and the shoulders is old, she have seen ortho before she got steroid injections before did not help much. Objective : Data - Labs CBC and BMP: 02/22/19 05:15 02/22/19 05:15 Objective : Exam - General General Appearance: No Acute Distress, Thin - Head Head Exam: Normal Inspection - Eye Eye Exam: Normal Appearance - ENT ENT Exam: Normal Exam - Neck Neck Exam: Normal Inspection - Respiratory Respiratory Exam: Clear to Auscultation - Bilaterally - GI/Abdominal GI/Abdominal Exam: Normal Bowel Sounds, Non Tender, Non Distended, Soft, No Organomegaly - Rectal Rectal Exam: Deferred - External Exam: Deferred - Extremities Extremities Exam: No Edema Present - Back Back Exam: Normal Inspection - Neurological Neurological Exam: Alert, Oriented x 3, CN II-XII Intact, No Facial Droop, Speech Intact / Clear, Moves All Extremities Equally - Psychiatric Psychiatric Exam: Flat Affect - Integumentary Integumentary Exam: Normal Color Assessment and Plan - Patient Problems (1) Pulmonary embolus Current Visit: Yes Status: Acute Comment: She was started last night on eliquis continue with it. Code(s): I26.99 - Other pulmonary embolism without acute cor pulmonale (2) Aspiration pneumonia Current Visit: Yes Status: Acute Comment: Continue current IV antibiotics. I think will aim to discharge her home tomorrow and to switch to pills then. Code(s): J69.0 - Pneumonitis due to inhalation of food and vomit (3) Congestive heart failure Current Visit: Yes Status: Acute Comment: She had an echocardiogram done I don't have the results yet. Her BNP was elevated and she received Lasix. She had some edema and everything seemed to resolve. I think will DC the Lasix DC the De catheter can be on Lasix as needed. I'm not sure that she hadcongestive heart failure. The elevation in BNP may be secondary to the PE itself. Code(s): I50.9 - Heart failure, unspecified
[2019-02-23] MEDS ORDERED: Sodium Chloride 0.9% 100 ML IV ONE (13:01)
[2019-02-23] MEDS: cefTRIAXone Inj 2 GM in Sodium Chloride 0.9% 100 ML IV SCH (13:07)
[2019-02-23] MEDS: TRAVOPROST OPTH EACH EYE SCH (20:24)
[2019-02-23] MEDS: EYE EACH EYE SCH (20:25)
[2019-02-23] MEDS: TRAVOPROST 0.004% EACH EYE SCH (20:25)
[2019-02-23] MEDS: TRIAZOLAM 0.25 MG PO PRN (22:16)
[2019-02-24 04:50] LABS: BASOPHILS # (AUTO) 0.04 10*3/UL; BASOPHILS % (AUTO) 0.7 % (0-1); EOSINOPHILS % (AUTO) 1.7 % (0-8); Hematocrit [HCT] 35.7 % (37.0-47.0); Hemoglobin [HGB] 11.1 g/dL (12.0-16.0); LYMPHOCYTES # (AUTO) 1.23 10*3/uL; MEAN CORPUSCULAR HGB CONC 31.1 g/dL (33-37); MEAN CORPUSCULAR VOLUME 86.9 FL (81-99); MEAN PLATELET VOLUME 9.6 FL (7.4-12.2); MONOCYTES # (AUTO) 0.71 10*3/UL (0.3-0.8); MONOCYTES % (AUTO) 11.9 % (5-15); NEUTROPHILS # (AUTO) 3.82 10*3/UL; NEUTROPHILS % (AUTO) 64.2 % (50-80); RED BLOOD COUNT 4.11 10^6/uL (4.20-5.40)
[2019-02-24 04:56] LABS: PLATELET MORPHOLOGY COMMENT NORMAL MORPHOLOGY (NORM); WBC MORPHOLOGY COMMENT NORMAL MORPHOLOGY (NORM)
[2019-02-24 04:57] LABS: BUN/CREATININE RATIO 18.57 (6-20); RBC MORPHOLOGY COMMENT SEE COMMENTS (NORM)
[2019-02-24] MEDS: OXYCODONE HCL 20 MG PO PRN (06:55)
[2019-02-24] MEDS: OMEPRAZOLE 40 MG CAPSULE PO SCH (07:01)
[2019-02-24] MEDS: metroNIDAZOLE 500mg (Premix) 500 MG/100 ML BAG IV SCH (07:07)
[2019-02-24] MEDS ORDERED: Potassium Chloride Tab 10 MEQ TAB PO ONE (07:14)
[2019-02-24 07:30] VITALS: RESP 21
[2019-02-24] MEDS: Multivitamin Tab 1 TAB PO SCH (08:45)
[2019-02-24] MEDS: Apixaban 5 MG TABLET PO SCH (08:45)
[2019-02-24] MEDS: GABAPENTIN 300 MG CAPSULE PO SCH (08:46)
[2019-02-24] MEDS: DOCUSATE 100 MG CAPSULE PO SCH (08:46)
--- NOTE | 2019-02-24 09:58 | DCSUMMARY ---
Hospitalization Summary Admit Date: 02/21/2019 Discharge Date: 02/24/19 Hospital Course: Discharge diagnoses 1. Pulmonary emboli in the branches to the right lower lobe and the right upper lobe. 2. Patchy parenchymal infiltrate in the right upper lobe and the right lower lobe. Patchy density in the inferior segment of the lingula. Treated as aspiration pneumonia. 3. Hypokalemia 4. History of anemia getting iron infusions 5. History of osteoporosis 6. History of osteoarthritis 7. History of chronic interstitial cystitis with recurrent UTI 8. History of colon polyps 9. History of macular degeneration 10. History of Gutierrez esophagitis 11. History of lumbar spondylosis on chronic pain medications Hospital course This is a 84 years old female with medical history significant for history of esophagitis, osteoporosis, lumbar spondylosis on chronic pain medication who was brought to the hospital as she laid on her bathroom for few hours. She doesn't remember the exact event but she said that she went to the bathroom and laid hours on the floor she doesn't remember much about the event. She was brought to the ER she had multiple tests and it showed that she had PE, there is also infiltrate in the lung was treated as aspiration pneumonia. She gave a history of choking on Wednesday. Also give a history of reflux. Patient was admitted to the hospital by Dr. Love please see his note. Initially she was treated with heparin then it was switched to oral eliquis. Because of a suspicion of aspiration pneumonia she was started on treatment with Rocephin and Flagyl. Her BNP was mildly elevated and she had some swelling in her legs and she was put on Lasix. She did have an echocardiogram I don't have the results. I saw her later on during hospital stay clinically she did not appear in heart failure. I thought the elevation in BNP was probably secondary to the PE itself. She did not have any edema there were no crackles in her lungs. I DC'd the Lasix we continued with the anticoagulation and antibiotics. On the day of discharge she was doing better no chest pain no shortness of breath have some old mild cough. She is not on oxygen and no DVT so we thought she could be discharged home. She need follow-up with hematology to see how long she need to be on anticoagulants. For the time being I told her and her family a minimum of 6 months. I gave her a few days of antibiotics , Augmentin, for the aspiration pneumonia. As I said and don't think she has CHF I wrote for Lasix as needed for leg swelling. She needed some potassium as her potassium was low from the Lasix that she received. Discharge instruction diet regular Activity as started Medications Current Medication(s) Medication Instructions Recorded Confirmed Type Calcium Carbonate/Vitamin D3 1 cap PO BID #60 tab 09/28/12 02/21/19 History [Calcium 600 + Vit D 400 Caplet] Docusate Sodium [Stool Softener] 100 mg PO DAILY tab 11/05/15 02/21/19 History Multivitamin [Daily Olinda] 1 tab PO DAILY tab 11/05/15 02/21/19 History Beta Carot W/Vit E,C,Min Tab 1 ea PO DAILY 12/26/17 02/21/19 History [Ocuvite Tab] omeprazole 40 mg capsule,delayed 40 mg PO BID #180 cap 05/05/18 02/21/19 Rx release gabapentin 300 mg capsule 300 mg PO TID #90 cap 11/18/18 02/21/19 Rx triazolam 0.25 mg tablet 0.25 mg PO QHS PRN #30 tab 12/15/18 02/21/19 Rx oxycodone 20 mg tablet 20 mg PO Q8H PRN #90 tab 02/03/19 02/21/19 Rx Amoxicillin/Potassium Clav 1 ea PO BID #8 tab 02/24/19 Rx [Augmentin 875-125 Tablet] Apixaban [Eliquis] 10 mg PO BID #60 tab 02/24/19 Rx Calcium/Vit D 600mg/400u Tab 1 tab PO BID tab 02/24/19 Rx [Calcium 600mg + D 400u Tab] Furosemide 20 mg PO DAILY PRN #15 tab 02/24/19 Rx Potassium Chloride [Klor-Con] 20 meq PO DAILY #5 tab 02/24/19 Rx Follow-up with PCP in 1-2 weeks Condition at discharge was stable for discharge Exam - Vitals Vital Signs: Vital Signs Temperature 97.8 F Temperature Source Temporal Artery Scan Pulse Rate [Pulse Oximeter 81 Right] Pulse Rate 83 Respiratory Rate 21 Blood Pressure [Right Radial 149/74 Artery] Blood Pressure [Right Arm] 147/56 Blood Pressure [Left Arm] 149/59 Pulse Ox 92 Oxygen Flow Rate 1 Oxygen Delivery Method Room Air Height 5 ft 4 in Weight 122 lb - General General Appearance: No Acute Distress, Cooperative, Thin - Head Head Exam: Normal Inspection - Eye Eye Exam: POSITIVE: Normal Appearance - ENT ENT Exam: POSITIVE: Normal Exam - Neck Neck Exam: Normal Inspection - Respiratory Respiratory Exam: POSITIVE: Clear to Auscultation - Bilaterally - Cardiovascular Cardiovascular Exam: POSITIVE: RRR - GI/Abdominal GI/Abdominal Exam: POSITIVE: Normal Bowel Sounds, Non Tender, Non Distended, Soft, No Organomegaly - Rectal Rectal Exam: POSITIVE: Deferred - External Exam: POSITIVE: Deferred - Extremities Extremities Exam: POSITIVE: Normal Inspection - Back Back Exam: POSITIVE: Normal Inspection - Neurological Neurological Exam: POSITIVE: Alert, Oriented x 3, CN II-XII Intact, No Facial Droop, Speech Intact / Clear - Psychiatric Psychiatric Exam: POSITIVE: Normal Affect - Integumentary Integumentary Exam: POSITIVE: Normal Color Patient Problems - Patient Problem List (1) Pulmonary embolus Status: Acute Code(s): I26.99 - Other pulmonary embolism without acute cor pulmonale Category: Medical (2) Aspiration pneumonia Status: Acute Code(s): J69.0 - Pneumonitis due to inhalation of food and vomit Category: Medical (3) Congestive heart failure Status: Acute Code(s): I50.9 - Heart failure, unspecified Category: Medical
[2019-02-24 11:40] VITALS: BP 135/51; TEMP 97.7; O2SAT 95
== END 2019-02-24 12:16 | disposition home or self-care (01) | DRG 291 ==
LOC: ER 07:20 → MED/SURG 11:48
PROVIDERS: ADMIT Internal Medicine; ATTEND Internal Medicine

== ENCOUNTER 2019-04-14 01:52 | Inpatient (IN) ==
[2019-04-14] MEDS ORDERED: Sodium Chloride 0.9% 1,000 ML PRIMARY IV ONE ×2 (02:24→06:12)
[2019-04-14] MEDS ORDERED: PANTOPRAZOLE IV 40 MG VIAL IVP ONE (02:24)
[2019-04-14] MEDS ORDERED: ONDANSETRON 4 MG/2 ML VIAL IVP ONE ×2 (02:24→03:36)
[2019-04-14] MEDS ORDERED: HYDROmorphone 2 MG/1 ML IVP ONE ×2 (02:24→03:41)
[2019-04-14 02:41] LABS: BASOPHILS # (AUTO) 0.02 10*3/UL; BASOPHILS % (AUTO) 0.3 % (0-1); EOSINOPHILS # (AUTO) 0 10*3/UL; EOSINOPHILS % (AUTO) 0 % (0-8); Hematocrit [HCT] 40.8 % (37.0-47.0); Hemoglobin [HGB] 13.1 g/dL (12.0-16.0); LYMPHOCYTES # (AUTO) 0.66 10*3/uL; MEAN CORPUSCULAR HGB CONC 32.1 g/dL (33-37); MEAN CORPUSCULAR VOLUME 91.5 FL (81-99); MEAN PLATELET VOLUME 9.3 FL (7.4-12.2); MONOCYTES # (AUTO) 0.12 10*3/UL (0.3-0.8); MONOCYTES % (AUTO) 1.6 % (5-15); NEUTROPHILS # (AUTO) 6.55 10*3/UL; RED BLOOD COUNT 4.46 10^6/uL (4.20-5.40)
[2019-04-14 02:42] LABS: PLATELET MORPHOLOGY COMMENT NORMAL MORPHOLOGY (NORM); RBC MORPHOLOGY COMMENT NORMAL MORPHOLOGY (NORM); WBC MORPHOLOGY COMMENT NORMAL MORPHOLOGY (NORM)
[2019-04-14 02:51] LABS: BLOOD UREA NITROGEN 19 mg/dL (7-22); BUN/CREATININE RATIO 27.14 (6-20); SERUM ALBUMIN 3.9 g/dL (3.5-4.8)
[2019-04-14 05:15] LABS: BILIRUBIN,URINE NEGATIVE (NEG); CLARITY,URINE CLEAR (CLEAR); COLOR,URINE YELLOW (Y); GLUCOSE, URINE (UA) NEGATIVE (NEG); OCCULT BLOOD,URINE Trace-intact (NEG); PH,URINE 8.5 (5.0-8.5); PROTEIN,URINE NEGATIVE (NEG); UROBILINOGEN,URINE 0.2 EU/dL (0.2)
[2019-04-14 05:22] LABS: URINE SAMPLE TYPE CLEAN CATCH URINE
[2019-04-14] MEDS ORDERED: Ertapenem Inj 1 GM in Sodium Chloride 0.9% 100 ML IV SCH ×2 (07:30→08:00)
[2019-04-14] MEDS ORDERED: LIDOCAINE W/ SODIUM BICARB 0.5 ML SYR SUBD PRN (07:35)
[2019-04-14] MEDS ORDERED: TRIAZOLAM 0.25 MG PO PRN (07:35)
[2019-04-14] MEDS ORDERED: ONDANSETRON 4 MG/2 ML VIAL IVP PRN (07:35)
[2019-04-14] MEDS ORDERED: OMEPRAZOLE 40 MG CAPSULE PO SCH (07:45)
[2019-04-14] MEDS: Sodium Chloride 0.9% 1,000 ML PRIMARY IV SCH ×2 (08:26→16:15)
[2019-04-14] MEDS ORDERED: Apixaban 5 MG TABLET PO SCH (09:00)
[2019-04-14] MEDS: GABAPENTIN 300 MG CAPSULE PO SCH ×2 (09:49→15:31)
[2019-04-14] MEDS ORDERED: Acetaminophen 1000mg Inj 1,000 MG/100 ML VIAL IV PRN (10:25)
[2019-04-14] MEDS ORDERED: SUMAtriptan Succinate 6 MG/0.5 ML SUBCUT ONE ×2 (12:16→17:27)
[2019-04-14] MEDS ORDERED: OXYCODONE HCL 20 MG PO PRN (15:12)
[2019-04-14] MEDS ORDERED: FUROSEMIDE 20 MG TABLET PO PRN (15:12)
[2019-04-14] MEDS ORDERED: Calcium/Vit D 600mg/400u Tab 1 TAB TABLET PO SCH ×2 (15:15)
[2019-04-14] MEDS ORDERED: Beta Carot W/Vit E,C,Min Tab 1 TAB TAB PO SCH (15:15)
[2019-04-14] MEDS ORDERED: DOCUSATE 100 MG CAPSULE PO SCH (15:15)
[2019-04-14] MEDS ORDERED: oxyCODONE IR Tab 15 MG, oxyCODONE IR Tab 5 MG PO PRN ×2 (15:20)
[2019-04-14 16:21] VITALS: RESP 20
[2019-04-14] MEDS ORDERED: LORazepam 2 MG/1 ML VIAL IVP ONE (19:12)
[2019-04-14 20:09] VITALS: BP 164/70; TEMP 97; O2SAT 89
[2019-04-15] MEDS ORDERED: Multivitamin Tab 1 TAB PO SCH (09:00)
[2019-04-15] MEDS ORDERED: POTASSIUM CHLORIDE 20 MEQ TAB PO SCH (09:00)
== END 2019-04-14 20:05 | disposition short-term general hospital (02) | DRG 392 ==
LOC: ER 01:52 → MED/SURG 07:05
PROVIDERS: ADMIT Internal Medicine; ATTEND Internal Medicine